=== PATIENT | female | born 1995 | race Caucasian/White ===

== ENCOUNTER 2016-06-05 16:22 | Emergency (ER) | payer OTHER ==
--- NOTE | 2016-06-05 18:57 | ED ---
Abdominal Pain HPI - General Chief Complaint: Abdominal Pain Stated Complaint: Abd Pain Time Seen by Provider: 06/05/16 18:40 Source: patient, RN notes reviewed Mode of arrival: ambulatory Limitations: no limitations - History of Present Illness Initial Comments: Patient is a 21-year-old presents emergency room for evaluation of abdominal cramping. Patient states she began developing abdominal cramping this morning and was extremely nauseous. Patient states she vomited a few times. Patient states that she slept all day today. Patient states she'll having intermittent cramping in her upper abdomen that radiates to her left lower quadrant. Patient does state her last menstrual period was 05/20/16. Patient states her menstrual period only lasted about 3 days. Patient states she did take a test last month and it was negative. Patient stated that after shoveling yesterday she went back inside and she had some spotting. Patient states she hasn't bled since. Patient states she thinks she might be . Patient states she has one previous full-term . Patient denies any other history of miscarriages or ectopic pregnancies. Patient denies current nausea. Patient denies bleeding today. Patient denies pain or burning during urination, trouble urinating or blood in urine. Patient denies chest pain, shortness of breath, headache, dizziness, constipation, diarrhea. - Related Data Home Medications Medication Instructions Recorded Confirmed Levothyroxine Sodium [Synthroid] 25 mcg PO DAILY 09/18/14 06/05/16 Dextroamphetamine/Amphetamine 10 mg PO BID 03/15/15 06/05/16 [Adderall] Albuterol Inhaler [Ventolin Hfa 2 puff INHALATION RT-Q4H PRN 04/22/16 06/05/16 Inhaler] Albuterol Nebulized [Ventolin 2.5 mg INHALATION RT-Q6H PRN 04/22/16 06/05/16 Nebulized] Asenapine [Saphris] 5 mg SUBLINGUAL HS 04/22/16 06/05/16 busPIRone HCL [Buspar] 7.5 mg PO BID 04/22/16 06/05/16 traZODone HCL 50 mg PO HS 04/22/16 06/05/16 Previous Rx's Medication Instructions Recorded Ibuprofen [Motrin] 800 mg PO Q8HR PRN #21 tab 04/22/16 Ciprofloxacin HCl [Cipro] 500 mg PO Q12HR 7 Days 06/05/16 Allergies Allergy/AdvReac Type Severity Reaction Status Date / Time blueberry Allergy Rash/Hives Verified 06/05/16 19:12 Jama Allergy Rash/Hives Verified 06/05/16 19:12 diphenhydramine HCl Allergy Swelling Verified 06/05/16 19:12 [From Benadryl] fluoxetine [From Prozac] Allergy Unknown Verified 06/05/16 19:12 iodine Allergy Rash/Hives Verified 06/05/16 19:12 peas Allergy Rash/Hives Verified 06/05/16 19:12 red dye Allergy Rash/Hives Verified 06/05/16 19:12 duloxetine HCl AdvReac Hallucinati Verified 06/05/16 19:12 [From Cymbalta] ons topiramate [From Topamax] AdvReac Hallucinati Verified 06/05/16 19:12 ons Review of Systems ROS Statement: Those systems with pertinent positive or pertinent negative responses have been documented in the HPI. ROS Other: All systems not noted in ROS Statement are negative. Past Medical History Past Medical History: Seizure Disorder Additional Past Medical History / Comment(s): BACK PAIN History of Any Multi-Drug Resistant Organisms: MRSA Date of last positivie culture/infection: summer 2012 MDRO Source:: axillae Past Surgical History: Cholecystectomy Past Psychological History: Anxiety, Depression Smoking Status: Current every day smoker Past Alcohol Use History: None Reported Past Drug Use History: None Reported General Exam - General Exam Comments Initial Comments: Laying in exam room in no acute distress. Limitations: no limitations General appearance: alert, in no apparent distress Head exam: Present: atraumatic, normocephalic, normal inspection Eye exam: Present: normal appearance ENT exam: Present: normal exam Neck exam: Present: normal inspection Respiratory exam: Present: normal lung sounds bilaterally. Absent: respiratory distress Cardiovascular Exam: Present: regular rate, normal rhythm, normal heart sounds GI/Abdominal exam: Present: soft, tenderness (LLQ), normal bowel sounds. Absent : distended, guarding, rebound, rigid External exam: Present: normal external exam Speculum exam: Present: normal speculum exam, vaginal discharge By manual exam: Present: adnexal tenderness (left) Extremities exam: Present: normal inspection Back exam: Present: normal inspection Neurological exam: Present: alert, oriented X3, CN II-XII intact, normal gait Psychiatric exam: Present: normal affect, normal mood Skin exam: Present: warm, dry, intact, normal color. Absent: rash Course Vital Signs 06/05/16 16:34 Temperature 98.5 F Pulse Rate 100 Respiratory 20 Rate Blood Pressure 148/80 O2 Sat by Pulse 98 Oximetry Medical Decision Making - Medical Decision Making patient is a 21-year-old female presents emergency room for evaluation of lower abdominal cramping. Urinalysis suspicious for urinary tract infection. Patient does state that she is currently being treated for urinary tract infection. Patient states she has been placed on Bactrim for the past week. Will switch patient's antibiotics from Bactrim to Cipro and culture the urine. Urine negative. Ultrasound was done and significant for a left ovarian cyst. Advised patient to follow-up with [facility] for further evaluation. Patient states she understands everything that was discussed with her. Return parameters discussed. Case discussed with Dr. Bell. - Lab Data Lab Results 06/05/16 06/05/16 06/05/16 Range/Units 19:00 19:00 19:00 Urine Color Yellow Urine Appearance Cloudy H (Clear) Urine pH 7.5 (5.0-8.0) Ur Specific [place] 1.018 (1.001-1.035) Urine Protein 1+ H (Negative) Urine Glucose (UA) Negative (Negative) Urine Ketones Negative (Negative) Urine Blood Small H (Negative) Urine Nitrate Negative (Negative) Urine Bilirubin Negative (Negative) Urine Urobilinogen 3.0 (<2.0) mg/dL Ur Leukocyte Esterase Large H (Negative) Urine RBC 23 H (0-5) /hpf Urine WBC >182 H (0-5) /hpf Ur Squamous Epith Cells 16 H (0-4) /hpf Urine Bacteria Moderate H (None) /hpf Urine HCG, Qual Not Detected (Not Detectd) Trichomonas Ag (Rapid) Negative (Negative) - Radiology Data Radiology results: report reviewed, image reviewed Disposition Clinical Impression: Ovarian cyst, Urinary tract infection Disposition: HOME SELF-CARE Condition: Good Instructions: Urinary Tract Infection in Women (ED), Ovarian Cyst (ED) Additional Instructions: Take Tylenol or Motrin as needed for pain. Discontinue current antibiotics. Begin taking Cipro as directed. Please follow up with primary care provider and [facility] for reevaluation. If any new symptom arises, symptoms worsen or fever develops, return to ER as soon as possible. Prescriptions: Ciprofloxacin HCl [Cipro] 500 mg PO Q12HR 7 Days Referrals: Abhinav Valdivia DO [Primary Care Provider] - 1-2 days Time of Disposition: 20:44
[2016-06-05 19:22] LABS: Appearance,Urine Cloudy (Clear); Bacteria,Urine Moderate /hpf; Bilirubin,Urine Negative (Negative); Glucose,Urine (UA) Negative (Negative); Ketones,Urine Negative (Negative); Leukocyte Esterase,Urine Large (Negative); Nitrite,Urine Negative (Negative); PH, Urine 7.5 (5.0-8.0); Particle Count 8593; Protein,Urine 1+ (Negative); RBC,Urine 23 /hpf (0-5); Specific Gravity,Urine 1.018 (1.001-1.035); Squamous Epithelial Cell,Urine 16 /hpf (0-4); UA Billing (MACRO vs. MICRO) MICRO; WBC,Urine >182 /hpf (0-5)
--- NOTE | 2016-06-05 20:28 | US ---
EXAMINATION TYPE: US transvaginal DATE OF EXAM: 06/05/2016 7:57 PM COMPARISON: NONE CLINICAL HISTORY: Pain, performed through ER. TECHNIQUE: Transvaginal (TV) Date of LMP: 05/20/2016, EXAM MEASUREMENTS: Uterus: 6.5 x 4.3 x 3.6 cm Endometrial Stripe: 0.8 cm Right Ovary: 3.1 x 2.0 x 2.7 cm Left Ovary: 3.5 x 1.2 x 2.2 cm TECHNOLOGIST IMPRESSION: 1. Uterus: Retroverted wnl 2. Endometrium: wnl 3. Right Ovary: follicles, complex cyst= 1.9 x 1.4 x 1.8 cm 4. Left Ovary: follicles, solid focus = 1.1 x 0.9 x 1.0 cm Spectral, color and waveform doppler imaging shows good arterial and venous flow within the ovaries ; there is no evidence for ovarian torsion. 5. Bilateral Adnexa: wnl 6. Posterior cul-de-sac: moderate amount of free fluid There may be involuting follicle involving the right ovary. Free fluid is present adjacent to the lef t ovary, isoechoic focus within the left ovary is indeterminate IMPRESSION: Free fluid, there may be involution of an ovarian follicle. Ovarian torsion cannot eviden t. Indeterminate isoechoic focus left ovary could be related to hemorrhagic cyst, follow-up could be performed to assess for resolution.
[2016-06-05] MEDS ORDERED: ACET/COD 300 MG/30 MG STARTER PACK 6 TAB BTL PO STA (20:47)
[2016-06-05 21:06] VITALS: BP 132/72; PULSE 92; RESP 18; TEMP 97.6
== END 2016-06-05 21:06 | disposition home or self-care (01) ==
LOC: EC 16:22
DX: N39.0 Urinary tract infection, site not specified (principal); N83.201 Unspecified ovarian cyst, right side; F32.9 Major depressive disorder, single episode, unspecified; F41.9 Anxiety disorder, unspecified; Z79.899 Other long term (current) drug therapy; Z88.8 Allergy status to other drugs, medicaments and biological substances; F17.200 Nicotine dependence, unspecified, uncomplicated
CPT/HCPCS: 76830; 81001; 81025; 87070; 87205; 87491; 87591; 87808; 93975; 99284

== ENCOUNTER 2016-07-01 13:52 | Emergency (ER) | payer OTHER ==
[2016-07-01] MEDS ORDERED: SODIUM CHLORIDE 0.9% 1,000 ML IV STA (15:17)
--- NOTE | 2016-07-01 15:19 | ED ---
Abdominal Pain HPI - General Chief Complaint: Abdominal Pain Stated Complaint: abdominal pain/early Time Seen by Provider: 07/01/16 15:12 Source: patient, RN notes reviewed Mode of arrival: ambulatory Limitations: no limitations - History of Present Illness Initial Comments: 21-year-old female presents emergency Department chief complaint of left-sided abdominal pain. Patient currently is . Patient states she has a history of states she is on which side. Patient states she started left-sided abdominal pain. Patient states she has had a lot of nausea vomiting this as well. Patient is . Patient states that she has had a fever chills. Patient states she was concerned with the belly pain and so she thought that she should be seen. Patient states there hasn't been any vaginal drainage or discharge. Patient states that she is not currently having any other symptoms at this time. Patient denies any recent fever, chills, shortness of breath, chest pain, back pain, numbness or tingling, dysuria or hematuria, constipation or diarrhea, headaches or visual changes, or any other current symptoms. - Related Data Home Medications Medication Instructions Recorded Confirmed No Known Home Medications [No 07/01/16 07/01/16 Known Home Medications] Allergies Allergy/AdvReac Type Severity Reaction Status Date / Time blueberry Allergy Rash/Hives Verified 07/01/16 15:29 Jama Allergy Rash/Hives Verified 07/01/16 15:29 diphenhydramine HCl Allergy Swelling Verified 07/01/16 15:29 [From Benadryl] fluoxetine [From Prozac] Allergy Unknown Verified 07/01/16 15:29 iodine Allergy Rash/Hives Verified 07/01/16 15:29 peas Allergy Rash/Hives Verified 07/01/16 15:29 red dye Allergy Rash/Hives Verified 07/01/16 15:29 duloxetine HCl AdvReac Hallucinati Verified 07/01/16 15:29 [From Cymbalta] ons topiramate [From Topamax] AdvReac Hallucinati Verified 07/01/16 15:29 ons Review of Systems ROS Statement: Those systems with pertinent positive or pertinent negative responses have been documented in the HPI. ROS Other: All systems not noted in ROS Statement are negative. Past Medical History Past Medical History: Seizure Disorder Additional Past Medical History / Comment(s): BACK PAIN History of Any Multi-Drug Resistant Organisms: MRSA Date of last positivie culture/infection: summer 2012 MDRO Source:: axillae Past Surgical History: Cholecystectomy Past Psychological History: Anxiety, Depression Smoking Status: Current every day smoker Past Alcohol Use History: None Reported Past Drug Use History: None Reported General Exam Limitations: no limitations General appearance: alert, in no apparent distress Eye exam: Present: normal appearance, PERRL, EOMI. Absent: scleral icterus, conjunctival injection, periorbital swelling ENT exam: Present: normal exam, mucous membranes moist Neck exam: Present: normal inspection. Absent: tenderness, meningismus, lymphadenopathy Respiratory exam: Present: normal lung sounds bilaterally. Absent: respiratory distress, wheezes, rales, rhonchi, stridor Cardiovascular Exam: Present: regular rate, normal rhythm, normal heart sounds. Absent: systolic murmur, diastolic murmur, rubs, gallop, clicks GI/Abdominal exam: Present: soft, normal bowel sounds. Absent: distended, tenderness, guarding, rebound, rigid Neurological exam: Present: alert, oriented X3, CN II-XII intact. Absent: motor sensory deficit Psychiatric exam: Present: normal affect, normal mood Skin exam: Present: warm, dry, intact, normal color. Absent: rash Course Vital Signs 07/01/16 07/01/16 13:58 17:23 Temperature 98 F Pulse Rate 84 75 Respiratory 20 16 Rate Blood Pressure 121/57 125/58 O2 Sat by Pulse 97 100 Oximetry Medical Decision Making - Medical Decision Making 21-year-old female presents emergency Department chief complaint of right-sided lower abdominal pain in . Patient also does have nausea and vomiting this . This time I work is reviewed as well as ultrasound. Patient appears to have a there does appear to be a right small cyst. At this time we did discuss follow-up with [facility]. Patient was offered a pelvic exam STD testing she states she'll follow-up with [facility] for that she does not have this done. That she is nauseous she is or things occasionally like to go home. This time we will discharge the patient. Follow-up return parameters were discussed. - Lab Data Result diagrams: 07/01/16 15:39 07/01/16 15:39 Lab Results 07/01/16 07/01/16 07/01/16 Range/Units 15:39 15:39 15:39 WBC 13.5 H (3.8-10.6) k/uL RBC 4.72 (3.80-5.40) m/uL Hgb 13.6 (11.4-16.0) gm/dL Hct 41.2 (34.0-46.0) % MCV 87.3 (80.0-100.0) fL MCH 28.8 (25.0-35.0) pg MCHC 33.0 (31.0-37.0) g/dL RDW 12.3 (11.5-15.5) % Plt Count 400 (150-450) k/uL Neutrophils % 65 % Lymphocytes % 25 % Monocytes % 5 % Eosinophils % 3 % Basophils % 0 % Neutrophils # 8.8 H (1.3-7.7) k/uL Lymphocytes # 3.3 (1.0-4.8) k/uL Monocytes # 0.6 (0-1.0) k/uL Eosinophils # 0.4 (0-0.7) k/uL Basophils # 0.1 (0-0.2) k/uL Sodium 140 (137-145) mmol/L Potassium 5.5 H (3.5-5.1) mmol/L Chloride 103 (98-107) mmol/L Carbon Dioxide 23 (22-30) mmol/L Anion Gap 14 mmol/L BUN 8 (7-17) mg/dL Creatinine 0.69 (0.52-1.04) mg/dL Est GFR (MDRD) Af Amer >60 (>60 ml/min/1.73 sqM) Est GFR (MDRD) Non-Af >60 (>60 ml/min/1.73 sqM) Glucose 86 (74-99) mg/dL Calcium 9.6 (8.4-10.2) mg/dL Total Bilirubin 1.2 (0.2-1.3) mg/dL AST 42 H (14-36) U/L ALT 36 (9-52) U/L Alkaline Phosphatase 98 (38-126) U/L Total Protein 8.0 (6.3-8.2) g/dL Albumin 4.6 (3.5-5.0) g/dL HCG, Quant 53353.7 mIU/mL Urine Color Urine Appearance (Clear) Urine pH (5.0-8.0) Ur Specific [place] (1.001-1.035) Urine Protein (Negative) Urine Glucose (UA) (Negative) Urine Ketones (Negative) Urine Blood (Negative) Urine Nitrate (Negative) Urine Bilirubin (Negative) Urine Urobilinogen (<2.0) mg/dL Ur Leukocyte Esterase (Negative) Urine RBC (0-5) /hpf Urine WBC (0-5) /hpf Urine WBC Clumps (None) /hpf Ur Squamous Epith Cells (0-4) /hpf Amorphous Sediment (None) /hpf Urine Mucus (None) /hpf Urine HCG, Qual (Not Detectd) Blood Type A Positive Blood Type Recheck No 07/01/16 07/01/16 Range/Units 15:39 15:39 WBC (3.8-10.6) k/uL RBC (3.80-5.40) m/uL Hgb (11.4-16.0) gm/dL Hct (34.0-46.0) % MCV (80.0-100.0) fL MCH (25.0-35.0) pg MCHC (31.0-37.0) g/dL RDW (11.5-15.5) % Plt Count (150-450) k/uL Neutrophils % % Lymphocytes % % Monocytes % % Eosinophils % % Basophils % % Neutrophils # (1.3-7.7) k/uL Lymphocytes # (1.0-4.8) k/uL Monocytes # (0-1.0) k/uL Eosinophils # (0-0.7) k/uL Basophils # (0-0.2) k/uL Sodium (137-145) mmol/L Potassium (3.5-5.1) mmol/L Chloride (98-107) mmol/L Carbon Dioxide (22-30) mmol/L Anion Gap mmol/L BUN (7-17) mg/dL Creatinine (0.52-1.04) mg/dL Est GFR (MDRD) Af Amer (>60 ml/min/1.73 sqM) Est GFR (MDRD) Non-Af (>60 ml/min/1.73 sqM) Glucose (74-99) mg/dL Calcium (8.4-10.2) mg/dL Total Bilirubin (0.2-1.3) mg/dL AST (14-36) U/L ALT (9-52) U/L Alkaline Phosphatase (38-126) U/L Total Protein (6.3-8.2) g/dL Albumin (3.5-5.0) g/dL HCG, Quant mIU/mL Urine Color Kya Urine Appearance Clear (Clear) Urine pH 6.0 (5.0-8.0) Ur Specific [place] 1.020 (1.001-1.035) Urine Protein Negative (Negative) Urine Glucose (UA) Negative (Negative) Urine Ketones Negative (Negative) Urine Blood Negative (Negative) Urine Nitrate Negative (Negative) Urine Bilirubin Negative (Negative) Urine Urobilinogen 2.0 (<2.0) mg/dL Ur Leukocyte Esterase Large H (Negative) Urine RBC 2 (0-5) /hpf Urine WBC 23 H (0-5) /hpf Urine WBC Clumps Rare H (None) /hpf Ur Squamous Epith Cells 7 H (0-4) /hpf Amorphous Sediment Rare H (None) /hpf Urine Mucus Rare H (None) /hpf Urine HCG, Qual Detected (Not Detectd) Blood Type Blood Type Recheck Disposition Clinical Impression: Abdominal pain during , Nausea and vomiting Disposition: HOME SELF-CARE Condition: Stable Instructions: Abdominal Pain in (ED) Additional Instructions: Please use medication as discussed. Please follow up with family doctor if symptoms have not improved over the next two days. Please return to the emergency room if your symptoms increase or worsen or for any other concerns. Referrals: Abhinav Valdivia DO [Primary Care Provider] - 1-2 days Time of Disposition: 17:42
[2016-07-01 15:51] LABS: Basophils # (A) 0.1 k/uL (0-0.2); Basophils % (A) 0 %; CH 29.5; CHCM 33.9; Eosinophils # (A) 0.4 k/uL (0-0.7); Eosinophils % (A) 3 %; HCT 41.2 % (34.0-46.0); HDW 2.12; HGB 13.6 gm/dL (11.4-16.0); Luc # (Auto) 0.27; Luc % (Auto) 2; Lymphocytes # (A) 3.3 k/uL (1.0-4.8); Lymphocytes % (A) 25 %; MCH 28.8 pg (25.0-35.0); MCV 87.3 fL (80.0-100.0); Mean Platelet Volume 7.7; Monocytes # (A) 0.6 k/uL (0-1.0); Monocytes % (A) 5 %; Neutrophils # (A) 8.8 k/uL (1.3-7.7); Neutrophils % (A) 65 %; RBC 4.72 m/uL (3.80-5.40); RDW 12.3 % (11.5-15.5); WBC 13.5 k/uL (3.8-10.6); WBC (Perox) 13.84
[2016-07-01 16:00] LABS: ALT 36 U/L (9-52); AST 42 U/L (14-36); Alkaline Phosphatase 98 U/L (38-126); Anion Gap 14 mmol/L; Blood Urea Nitrogen 8 mg/dL (7-17); Calcium 9.6 mg/dL (8.4-10.2); Carbon Dioxide 23 mmol/L (22-30); Chloride 103 mmol/L (98-107); Glucose 86 mg/dL (74-99); Non-African American GFR(MDRD) >60 (>60 ml/min/1.73 sqM); Potassium 5.5 mmol/L (3.5-5.1); Sodium 140 mmol/L (137-145); Total Bilirubin 1.2 mg/dL (0.2-1.3)
[2016-07-01 16:10] LABS: Amorphous Sediment,Urine Rare /hpf; Appearance,Urine Clear (Clear); Bilirubin,Urine Negative (Negative); Glucose,Urine (UA) Negative (Negative); Ketones,Urine Negative (Negative); Leukocyte Esterase,Urine Large (Negative); Mucus,Urine Rare /hpf; Nitrite,Urine Negative (Negative); Particle Count 4670; Protein,Urine Negative (Negative); RBC,Urine 2 /hpf (0-5); Squamous Epithelial Cell,Urine 7 /hpf (0-4); UA Billing (MACRO vs. MICRO) MICRO; WBC,Urine 23 /hpf (0-5)
[2016-07-01 16:49] LABS: HCG,Quantitative Serum 58595.7 mIU/mL
--- NOTE | 2016-07-01 17:33 | US ---
EXAMINATION TYPE: US OB <=14 wks transvag DATE OF EXAM: 07/01/2016 5:04 PM COMPARISON: on PACS CLINICAL HISTORY: Pain. hx of ovarian cyst EXAM PERFORMED: Transvaginal (TV) and Transabdominal (TA) EXAM MEASUREMENTS: GESTATIONAL AGE / DATING Dates by LMP: (6 weeks/0 days) EDC: 02/24/2017 Dates by Current Scan: (5 weeks/6 days) EDC: 02/25/2017 MATERNAL ANATOMY Uterus: 7.8 x 4.9 x 5.4 cm Right Ovary: 3.4 x 1.8 x 2.2 cm Left Ovary: 2.6 x 1.3 x 1.5 cm Post CDS / Adnexa: free fluid Presence of free fluid: posterior cul de sac Presence of corpus luteal cyst: right ovary = 1.5 x 1.4 x 1.3 cm GESTATION / SURVEY CRL: 0.3 cm (5 weeks/6 days) MSD: not measured Yolk Sac (normal less than 6mm): 2.1 mm Heart Rate: 118 bpm Rhythm: Normal IUP: Viable IUP Date of LMP: 05/20/2016 Beta HcG (if available): not available TECHNOLOGIST IMPRESSION: Single live IUP measuring 5 weeks 6 days IMPRESSION: The ultrasound gestational age is 5 weeks 6 days. I see no complicating process.
[2016-07-01 17:57] VITALS: BP 109/80; PULSE 71; RESP 20; TEMP 97.9
== END 2016-07-01 18:00 | disposition home or self-care (01) ==
LOC: EC 13:52
DX: O21.9 Vomiting of pregnancy, unspecified (principal); O99.89 Other specified diseases and conditions complicating pregnancy, childbirth and the puerperium; O99.331 Smoking (tobacco) complicating pregnancy, first trimester; R10.9 Unspecified abdominal pain; F17.200 Nicotine dependence, unspecified, uncomplicated; Z3A.01 Less than 8 weeks gestation of pregnancy; Z91.018 Allergy to other foods; Z91.041 Radiographic dye allergy status; Z88.8 Allergy status to other drugs, medicaments and biological substances; Z91.09 Other allergy status, other than to drugs and biological substances; Z90.49 Acquired absence of other specified parts of digestive tract
CPT/HCPCS: 36415; 76801; 76817; 80053; 81001; 81025; 84702; 85025; 86900; 86901; 87077; 87086; 87186; 96360; 96361; 99284

== ENCOUNTER 2016-07-04 23:37 | Emergency (ER) | payer OTHER ==
[2016-07-05] MEDS ORDERED: SODIUM CHLORIDE 0.9% 1,000 ML IV ONE (00:52)
[2016-07-05] MEDS ORDERED: ACETAMINOPHEN IV (For NPO) 1,000 MG in EMPTY BAG 1 BAG IVPB STA (00:53)
[2016-07-05] MEDS ORDERED: METOCLOPRAMIDE 5 MG/ML 2 ML VIAL IVP STA (00:53)
--- NOTE | 2016-07-05 00:56 | ED ---
Nausea/Vomiting/Diarrhea HPI - General Chief complaint: Nausea/Vomiting/Diarrhea Stated complaint: Fever/Vomiting/6Wks Preg Time Seen by Provider: 07/05/16 00:07 Source: patient, family, RN notes reviewed Mode of arrival: wheelchair Limitations: no limitations - History of Present Illness Initial comments: Patient is a 21-year-old female who presents to the emergency room for evaluation of nausea and vomiting. patient states she is here 2 days ago for the same symptoms. patient states been having on and off fevers and chills. patient states she took tylenol around 5:30 pm with no relief of symptoms. patient states she hasn't been able to eat 3 days. patient states she is about 6 weeks . patient denies pain or burning during urination, trouble urinating or blood in urine. patient denies any abnormal vaginal discharge. patient denies history of stds. patient does state that she was diagnosed with urinary tract infection and was supposed to diamond picker antibiotics today. Patient also states she began developing throat pain yesterday. Patient states she has sinus congestion and bilateral ear pressure/pain. Patient denies receiving her influenza vaccine this year. - Related Data Home Medications Medication Instructions Recorded Confirmed Acetaminophen Tab [Tylenol] 500 mg PO DIRECTED PRN 07/04/16 07/04/16 Previous Rx's Medication Instructions Recorded Cephalexin [Keflex] 500 mg PO Q6HR 5 Days 07/05/16 Allergies Allergy/AdvReac Type Severity Reaction Status Date / Time blueberry Allergy Rash/Hives Verified 07/04/16 23:56 Jama Allergy Rash/Hives Verified 07/04/16 23:56 diphenhydramine HCl Allergy Swelling Verified 07/04/16 23:56 [From Benadryl] fluoxetine [From Prozac] Allergy Unknown Verified 07/04/16 23:56 iodine Allergy Rash/Hives Verified 07/04/16 23:56 peas Allergy Rash/Hives Verified 07/04/16 23:56 red dye Allergy Rash/Hives Verified 07/04/16 23:56 duloxetine HCl AdvReac Hallucinati Verified 07/04/16 23:56 [From Cymbalta] ons topiramate [From Topamax] AdvReac Hallucinati Verified 07/04/16 23:56 ons Review of Systems ROS Statement: Those systems with pertinent positive or pertinent negative responses have been documented in the HPI. ROS Other: All systems not noted in ROS Statement are negative. Past Medical History Past Medical History: Seizure Disorder Additional Past Medical History / Comment(s): BACK PAIN History of Any Multi-Drug Resistant Organisms: MRSA Date of last positivie culture/infection: summer 2012 MDRO Source:: axillae Past Surgical History: Cholecystectomy Past Psychological History: Anxiety, Depression Smoking Status: Current every day smoker Past Alcohol Use History: None Reported Past Drug Use History: None Reported General Exam - General Exam Comments Initial Comments: Sitting in exam room in no acute distress. Limitations: no limitations General appearance: alert, in no apparent distress Head exam: Present: atraumatic, normocephalic, normal inspection Eye exam: Present: normal appearance ENT exam: Present: normal exam Neck exam: Present: normal inspection Respiratory exam: Present: normal lung sounds bilaterally. Absent: respiratory distress Cardiovascular Exam: Present: normal rhythm, tachycardia, normal heart sounds GI/Abdominal exam: Present: soft, normal bowel sounds. Absent: distended, tenderness, guarding, rebound, rigid Extremities exam: Present: normal inspection Back exam: Present: normal inspection Neurological exam: Present: alert, oriented X3, CN II-XII intact, normal gait Psychiatric exam: Present: normal affect, normal mood Skin exam: Present: warm, dry, intact, normal color. Absent: rash Course Vital Signs 07/04/16 07/05/16 07/05/16 23:54 01:46 03:18 Temperature 99.6 F 99.8 F H 98.1 F Pulse Rate 111 H 78 Respiratory 20 16 Rate Blood Pressure 124/58 110/68 O2 Sat by Pulse 98 98 Oximetry Medical Decision Making - Medical Decision Making Patient's 21-year-old female presents to the emergency room for evaluation of nausea and vomiting. Patient is about 6 weeks . Patient denies any abdominal pain today. Patient states she is feeling better after fluids and medications given. Will send patient home with [facility] for urinary tract infection. Advised patient to follow-up with her WEED INSPECTOR. Patient states she understands everything that was discussed with her. Return parameters discussed. Case discussed with Dr. He. - Lab Data Result diagrams: 07/05/16 01:23 07/05/16 01:23 Lab Results 07/05/16 07/05/16 07/05/16 Range/Units 01:23 01:23 01:23 WBC 21.9 H (3.8-10.6) k/uL RBC 4.29 (3.80-5.40) m/uL Hgb 12.5 (11.4-16.0) gm/dL Hct 36.9 (34.0-46.0) % MCV 86.1 (80.0-100.0) fL MCH 29.1 (25.0-35.0) pg MCHC 33.8 (31.0-37.0) g/dL RDW 12.6 (11.5-15.5) % Plt Count 338 (150-450) k/uL Neutrophils % 85 % Lymphocytes % 7 % Monocytes % 5 % Eosinophils % 1 % Basophils % 0 % Neutrophils # 18.6 H (1.3-7.7) k/uL Lymphocytes # 1.6 (1.0-4.8) k/uL Monocytes # 1.2 H (0-1.0) k/uL Eosinophils # 0.2 (0-0.7) k/uL Basophils # 0.1 (0-0.2) k/uL Sodium 137 (137-145) mmol/L Potassium 4.0 (3.5-5.1) mmol/L Chloride 102 (98-107) mmol/L Carbon Dioxide 23 (22-30) mmol/L Anion Gap 12 mmol/L BUN 4 L (7-17) mg/dL Creatinine 0.70 (0.52-1.04) mg/dL Est GFR (MDRD) Af Amer >60 (>60 ml/min/1.73 sqM) Est GFR (MDRD) Non-Af >60 (>60 ml/min/1.73 sqM) Glucose 112 H (74-99) mg/dL Calcium 9.2 (8.4-10.2) mg/dL Total Bilirubin 0.5 (0.2-1.3) mg/dL AST 16 (14-36) U/L ALT 39 (9-52) U/L Alkaline Phosphatase 109 (38-126) U/L Total Protein 7.1 (6.3-8.2) g/dL Albumin 4.0 (3.5-5.0) g/dL Urine Color Urine Appearance (Clear) Urine pH (5.0-8.0) Ur Specific Hurley (1.001-1.035) Urine Protein (Negative) Urine Glucose (UA) (Negative) Urine Ketones (Negative) Urine Blood (Negative) Urine Nitrate (Negative) Urine Bilirubin (Negative) Urine Urobilinogen (<2.0) mg/dL Ur Leukocyte Esterase (Negative) Urine RBC (0-5) /hpf Urine WBC (0-5) /hpf Ur Squamous Epith Cells (0-4) /hpf Urine Bacteria (None) /hpf Group A Strep Rapid Negative (Negative) 07/05/16 Range/Units 01:23 WBC (3.8-10.6) k/uL RBC (3.80-5.40) m/uL Hgb (11.4-16.0) gm/dL Hct (34.0-46.0) % MCV (80.0-100.0) fL MCH (25.0-35.0) pg MCHC (31.0-37.0) g/dL RDW (11.5-15.5) % Plt Count (150-450) k/uL Neutrophils % % Lymphocytes % % Monocytes % % Eosinophils % % Basophils % % Neutrophils # (1.3-7.7) k/uL Lymphocytes # (1.0-4.8) k/uL Monocytes # (0-1.0) k/uL Eosinophils # (0-0.7) k/uL Basophils # (0-0.2) k/uL Sodium (137-145) mmol/L Potassium (3.5-5.1) mmol/L Chloride (98-107) mmol/L Carbon Dioxide (22-30) mmol/L Anion Gap mmol/L BUN (7-17) mg/dL Creatinine (0.52-1.04) mg/dL Est GFR (MDRD) Af Amer (>60 ml/min/1.73 sqM) Est GFR (MDRD) Non-Af (>60 ml/min/1.73 sqM) Glucose (74-99) mg/dL Calcium (8.4-10.2) mg/dL Total Bilirubin (0.2-1.3) mg/dL AST (14-36) U/L ALT (9-52) U/L Alkaline Phosphatase (38-126) U/L Total Protein (6.3-8.2) g/dL Albumin (3.5-5.0) g/dL Urine Color Yellow Urine Appearance Cloudy H (Clear) Urine pH 6.5 (5.0-8.0) Ur Specific Hurley 1.016 (1.001-1.035) Urine Protein Trace H (Negative) Urine Glucose (UA) Negative (Negative) Urine Ketones Negative (Negative) Urine Blood Negative (Negative) Urine Nitrate Negative (Negative) Urine Bilirubin Negative (Negative) Urine Urobilinogen 2.0 (<2.0) mg/dL Ur Leukocyte Esterase Large H (Negative) Urine RBC 4 (0-5) /hpf Urine WBC 8 H (0-5) /hpf Ur Squamous Epith Cells 6 H (0-4) /hpf Urine Bacteria Moderate H (None) /hpf Group A Strep Rapid (Negative) Disposition Clinical Impression: Hyperemesis gravidarum, Urinary tract infection Disposition: HOME SELF-CARE Condition: Good Instructions: Urinary Tract Infection in (ED), Hyperemesis Gravidarum (ED) Additional Instructions: Drink plenty of fluids. Take antibiotics as directed. Please follow-up with OB /BOOT LACE CUTTER MACHINE in 24-48 hours. If any new symptom arises or symptoms worsen, return to ER as soon as possible. Prescriptions: Cephalexin [Keflex] 500 mg PO Q6HR 5 Days Referrals: Abhinav Valdivia DO [Primary Care Provider] - 1-2 days Time of Disposition: 03:18
[2016-07-05 01:45] LABS: Basophils # (A) 0.1 k/uL (0-0.2); Basophils % (A) 0 %; CH 29.6; CHCM 34.5; Eosinophils # (A) 0.2 k/uL (0-0.7); Eosinophils % (A) 1 %; HCT 36.9 % (34.0-46.0); HDW 2.03; HGB 12.5 gm/dL (11.4-16.0); Luc # (Auto) 0.27; Luc % (Auto) 1; Lymphocytes # (A) 1.6 k/uL (1.0-4.8); Lymphocytes % (A) 7 %; MCH 29.1 pg (25.0-35.0); MCHC 33.8 g/dL (31.0-37.0); MCV 86.1 fL (80.0-100.0); Mean Platelet Volume 7.6; Monocytes # (A) 1.2 k/uL (0-1.0); Monocytes % (A) 5 %; Neutrophils # (A) 18.6 k/uL (1.3-7.7); Neutrophils % (A) 85 %; RBC 4.29 m/uL (3.80-5.40); RDW 12.6 % (11.5-15.5); WBC 21.9 k/uL (3.8-10.6); WBC (Perox) 22.38
[2016-07-05 02:03] LABS: ALT 39 U/L (9-52); AST 16 U/L (14-36); Alkaline Phosphatase 109 U/L (38-126); Anion Gap 12 mmol/L; Blood Urea Nitrogen 4 mg/dL (7-17); Calcium 9.2 mg/dL (8.4-10.2); Carbon Dioxide 23 mmol/L (22-30); Chloride 102 mmol/L (98-107); Glucose 112 mg/dL (74-99); Non-African American GFR(MDRD) >60 (>60 ml/min/1.73 sqM); Sodium 137 mmol/L (137-145); Total Bilirubin 0.5 mg/dL (0.2-1.3); Total Protein 7.1 g/dL (6.3-8.2)
[2016-07-05 03:01] LABS: Appearance,Urine Cloudy (Clear); Bacteria,Urine Moderate /hpf; Bilirubin,Urine Negative (Negative); Glucose,Urine (UA) Negative (Negative); Ketones,Urine Negative (Negative); Leukocyte Esterase,Urine Large (Negative); Nitrite,Urine Negative (Negative); PH, Urine 6.5 (5.0-8.0); Particle Count 9073; Protein,Urine Trace (Negative); RBC,Urine 4 /hpf (0-5); Specific Gravity,Urine 1.016 (1.001-1.035); Squamous Epithelial Cell,Urine 6 /hpf (0-4); UA Billing (MACRO vs. MICRO) MICRO; WBC,Urine 8 /hpf (0-5)
[2016-07-05 03:19] VITALS: BP 110/68; PULSE 78; RESP 16; TEMP 98.1
[2016-07-05] MEDS ORDERED: CEPHALEXIN 500MG STARTER PACK 4 CAP BTL PO STA (03:20)
== END 2016-07-05 03:47 | disposition home or self-care (01) ==
LOC: EC 23:37
DX: O21.0 Mild hyperemesis gravidarum (principal); O23.41 Unspecified infection of urinary tract in pregnancy, first trimester; Z3A.01 Less than 8 weeks gestation of pregnancy; F17.200 Nicotine dependence, unspecified, uncomplicated; Z91.018 Allergy to other foods; Z88.8 Allergy status to other drugs, medicaments and biological substances; Z91.048 Other nonmedicinal substance allergy status
CPT/HCPCS: 99284; 96374; 96375; 36415; 80053; 85025; 81001; 87081; 87430; 87502; J2765; J0131

== ENCOUNTER → 2016-08-22 | Outpatient (CLI) | payer OTHER ==
--- NOTE | 2016-08-22 21:29 | US ---
EXAMINATION TYPE: US OB <= 14 wk fetus DATE OF EXAM: 08/22/2016 4:22 PM COMPARISON: NONE CLINICAL HISTORY: Z34.8 Supervision of Normal . Confirm dates EXAM PERFORMED: Transabdominal (TA) EXAM MEASUREMENTS: GESTATIONAL AGE / DATING Physician Established: not established Dates by LMP: (13 weeks/3 days) EDC: 02/24/17 Dates by First Scan: (13 weeks/2 days) EDC: 02/25/17 Dates by Current Scan for: (13 weeks/6 days) EDC: 02/21/17 MATERNAL ANATOMY Uterus: 13.9 x 7.1 x 10.2cm Right Ovary: 2.9 x 1.4 x 1.5cm Left Ovary: 3.9 x 1.5 x 2.4cm Post CDS / Adnexa: appears wnl Presence of free fluid: no Presence of corpus luteal cyst: yes, hypoechoic area right ovary = 1.6 x 1.2 x 1.5cm GESTATION / SURVEY CRL: 7.7cm (13 weeks/6 days) Yolk Sac (normal less than 6mm): not seen Heart Rate: 154 bpm Rhythm: Normal IUP: Viable IUP Date of LMP: 05/20/16 Beta HcG (if available): unavailable IMPRESSION: Single viable IUP 13wks/6days with SHAILESH of 02/21/17
== END | disposition home or self-care (01) ==
LOC: RADUSWWP 15:57
PROVIDERS: ATTEND Obstetrics & Gynecology
DX: Z36 Encounter for antenatal screening of mother (principal); Z3A.13 13 weeks gestation of pregnancy
CPT/HCPCS: 76801

== ENCOUNTER 2016-09-18 20:19 | Emergency (ER) | payer OTHER ==
[2016-09-18] MEDS ORDERED: ACETAMINOPHEN TAB 325 MG TAB PO STA (22:50)
--- NOTE | 2016-09-18 22:54 | ED ---
Abdominal Pain HPI - General Chief Complaint: Abdominal Pain Stated Complaint: abdominal Pain (17 weeks preg) Time Seen by Provider: 09/18/16 22:36 Source: patient, RN notes reviewed Mode of arrival: ambulatory Limitations: no limitations - History of Present Illness Initial Comments: Patient is a 21-year-old female presents to the emergency room for evaluation of abdominal pain. Patient states she is about 17 weeks . Patient states over the past 3 days she's been having left lower quadrant and right lower quadrant pain that radiates through her entire abdomen. Patient states she has an appointment with her BLUEBERRY GROWER on Friday. Patient states she has not spoken to her BLUEBERRY GROWER about this issue yet. Patient denies nausea vomiting. Patient denies chest pain or shortness of breath. Patient denies pain or burning during urination, trouble urinating or blood in urine. Patient states the pain comes in waves. Patient denies vaginal bleeding. - Related Data Home Medications Medication Instructions Recorded Confirmed No Known Home Medications [No 09/18/16 09/18/16 Known Home Medications] Allergies Allergy/AdvReac Type Severity Reaction Status Date / Time blueberry Allergy Rash/Hives Verified 09/18/16 23:06 Jama Allergy Rash/Hives Verified 09/18/16 23:06 diphenhydramine HCl Allergy Swelling Verified 09/18/16 23:06 [From Benadryl] iodine Allergy Rash/Hives Verified 09/18/16 23:06 peas Allergy Rash/Hives Verified 09/18/16 23:06 red dye Allergy Rash/Hives Verified 09/18/16 23:06 duloxetine HCl AdvReac Hallucinati Verified 09/18/16 23:06 [From Cymbalta] ons fluoxetine [From Prozac] AdvReac Hallucinati Verified 09/18/16 23:06 ons topiramate [From Topamax] AdvReac Hallucinati Verified 09/18/16 23:06 ons Review of Systems ROS Statement: Those systems with pertinent positive or pertinent negative responses have been documented in the HPI. ROS Other: All systems not noted in ROS Statement are negative. Past Medical History Past Medical History: Seizure Disorder Additional Past Medical History / Comment(s): BACK PAIN History of Any Multi-Drug Resistant Organisms: MRSA Date of last positivie culture/infection: summer 2012 MDRO Source:: axillae Past Surgical History: Cholecystectomy Past Psychological History: Anxiety, Depression Smoking Status: Current every day smoker Past Alcohol Use History: None Reported Past Drug Use History: None Reported General Exam - General Exam Comments Initial Comments: Sitting in exam room, no acute distress. Limitations: no limitations General appearance: alert, in no apparent distress Head exam: Present: atraumatic, normocephalic, normal inspection Eye exam: Present: normal appearance ENT exam: Present: normal exam Neck exam: Present: normal inspection Respiratory exam: Present: normal lung sounds bilaterally. Absent: respiratory distress Cardiovascular Exam: Present: regular rate, normal rhythm, normal heart sounds GI/Abdominal exam: Present: soft, tenderness (RLQ/LLQ), normal bowel sounds. Absent: distended, guarding, rebound, rigid Extremities exam: Present: normal inspection Back exam: Present: normal inspection Neurological exam: Present: alert, oriented X3, CN II-XII intact, normal gait Psychiatric exam: Present: normal affect, normal mood Skin exam: Present: warm, dry, intact, normal color. Absent: rash Course Vital Signs 09/18/16 09/19/16 21:07 01:03 Temperature 98.3 F 98.2 F Pulse Rate 95 84 Respiratory 20 18 Rate Blood Pressure 122/64 118/60 O2 Sat by Pulse 99 98 Oximetry Medical Decision Making - Medical Decision Making Patient is a 21-year-old female presents emergency room for evaluation of abdominal pain during . Ultrasound shows no concerning findings. Urinalysis shows no specific findings. Patient states then better after Tylenol. Advised patient to follow-up with her BLUEBERRY GROWER. Patient states she has an appointment on Friday. Return parameters discussed. Case discussed Dr. Pedersen. - Lab Data Lab Results 09/19/16 Range/Units 00:03 Urine Color Light Yellow Urine Appearance Clear (Clear) Urine pH 5.5 (5.0-8.0) Ur Specific Hughes 1.008 (1.001-1.035) Urine Protein Negative (Negative) Urine Glucose (UA) Negative (Negative) Urine Ketones Negative (Negative) Urine Blood Small H (Negative) Urine Nitrite Negative (Negative) Urine Bilirubin Negative (Negative) Urine Urobilinogen <2.0 (<2.0) mg/dL Ur Leukocyte Esterase Small H (Negative) Urine RBC 4 (0-5) /hpf Urine WBC 4 (0-5) /hpf Ur Squamous Epith Cells 1 (0-4) /hpf Urine Mucus Rare H (None) /hpf - Radiology Data Radiology results: report reviewed, image reviewed Disposition Clinical Impression: related abdominal pain of lower quadrant, antepartum Disposition: HOME SELF-CARE Condition: Good Instructions: Abdominal Pain in (ED) Additional Instructions: Please follow-up with BLUEBERRY GROWER in 24-48 hours for reevaluation. Take Tylenol as needed for pain. If any new symptom arises or symptoms worsen, return to ER as soon as possible. Referrals: Abhinav Valdivia DO [Primary Care Provider] - 1-2 days Time of Disposition: 00:50
[2016-09-19 00:18] LABS: Appearance,Urine Clear (Clear); Bilirubin,Urine Negative (Negative); Glucose,Urine (UA) Negative (Negative); Ketones,Urine Negative (Negative); Leukocyte Esterase,Urine Small (Negative); Mucus,Urine Rare /hpf; Nitrite,Urine Negative (Negative); PH, Urine 5.5 (5.0-8.0); Particle Count 1429; Protein,Urine Negative (Negative); RBC,Urine 4 /hpf (0-5); Specific Gravity,Urine 1.008 (1.001-1.035); Squamous Epithelial Cell,Urine 1 /hpf (0-4); UA Billing (MACRO vs. MICRO) MICRO; Urobilinogen,Urine <2.0 mg/dL (<2.0); WBC,Urine 4 /hpf (0-5)
--- NOTE | 2016-09-19 00:37 | US ---
Obstetric Ultrasound, Second trimester INDICATION: 21-year-old woman presenting with pelvic pain. COMPARISON: Ultrasound 08/22/16 TECHNIQUE: Real-time sonographic evaluation of the is performed using grayscale and color flow. FINDINGS: Single live intrauterine gestation with cephalic presentation. The placenta is anterior and does not extend to the lower uterine segment. The cervix is closed and measures 3.8 cm. Amniotic fluid index is normal measuring 11.1 cm. BPD 4.01 cm 18 weeks 1 days HC 14.57 cm 17 weeks 5 days AC 12.95 cm 18 weeks 3 days FL 2.76 cm 18 weeks 3 days By this ultrasound, estimated gestational age is 18 weeks 1 day +/- 1 week 0 days with estimated delivery date of 02/18/17. Estimated weight is 237.81 g +/-35.67 g. Estimated weight percentile is 96.9%. HC/AC ratio is 1.13 (normal range for this fetus is 1.08-1.27) FHR is 153 bpm. IMPRESSION: Single-live intrauterine with EGA of 18 weeks 1 day +/- 1 week 0 days by sonographic dating. The placenta is anterior without evidence of previa. Amniotic fluid index is normal.
[2016-09-19 01:05] VITALS: BP 118/60; PULSE 84; RESP 18; TEMP 98.2
== END 2016-09-19 01:05 | disposition home or self-care (01) ==
LOC: EC 20:19
DX: O26.892 Other specified pregnancy related conditions, second trimester (principal); R10.32 Left lower quadrant pain; R10.31 Right lower quadrant pain; R10.84 Generalized abdominal pain; O99.332 Smoking (tobacco) complicating pregnancy, second trimester; F17.200 Nicotine dependence, unspecified, uncomplicated; Z88.8 Allergy status to other drugs, medicaments and biological substances; Z91.018 Allergy to other foods; Z91.09 Other allergy status, other than to drugs and biological substances; Z90.49 Acquired absence of other specified parts of digestive tract; Z3A.18 18 weeks gestation of pregnancy
CPT/HCPCS: 76805; 81001; 99284

== ENCOUNTER 2016-10-02 09:36 | Emergency (ER) | payer OTHER ==
[2016-10-02 09:49] VITALS: RESP 18
--- NOTE | 2016-10-02 10:22 | ED ---
ENT HPI - General Chief complaint: ENT Stated complaint: throat pain Time Seen by Provider: 10/02/16 10:11 Source: patient, RN notes reviewed Mode of arrival: ambulatory Limitations: no limitations - History of Present Illness Initial comments: 21-year-old female presents emergency Department chief complaint sore throat. Patient states started sore throat yesterday but not she has congestion, runny nose cough today. Patient states that she is so she was concerned. Patient states she just feels rundown and tired. Patient states that she chronically has nausea vomiting with her not worse than usual. Patient denies abdominal pain including has no bleeding or vaginal discharge. Patient has a follow-up appointment with her INTERACTIVE GRAPHIC DESIGNER. Patient denies any over- the-counter medication use. - Related Data Home Medications Medication Instructions Recorded Confirmed Acetaminophen Tab [Tylenol Tab] 325 mg PO Q4H PRN 10/02/16 10/02/16 Levothyroxine Sodium [Synthroid] 25 mcg PO DAILY 10/02/16 10/02/16 Pnv with Ca,No.72/Iron/FA 1 tab PO DAILY 10/02/16 10/02/16 [ Plus Tablet] Allergies Allergy/AdvReac Type Severity Reaction Status Date / Time blueberry Allergy Rash/Hives Verified 10/02/16 10:31 Jama Allergy Rash/Hives Verified 10/02/16 10:31 diphenhydramine HCl Allergy Swelling Verified 10/02/16 10:31 [From Benadryl] iodine Allergy Rash/Hives Verified 10/02/16 10:31 peas Allergy Rash/Hives Verified 10/02/16 10:31 red dye Allergy Rash/Hives Verified 10/02/16 10:31 duloxetine HCl AdvReac Hallucinati Verified 10/02/16 10:31 [From Cymbalta] ons fluoxetine [From Prozac] AdvReac Hallucinati Verified 10/02/16 10:31 ons topiramate [From Topamax] AdvReac Hallucinati Verified 10/02/16 10:31 ons Review of Systems ROS Statement: Those systems with pertinent positive or pertinent negative responses have been documented in the HPI. ROS Other: All systems not noted in ROS Statement are negative. Past Medical History Past Medical History: Seizure Disorder Additional Past Medical History / Comment(s): BACK PAIN History of Any Multi-Drug Resistant Organisms: MRSA Date of last positivie culture/infection: summer 2012 MDRO Source:: axillae Past Surgical History: Cholecystectomy Past Psychological History: Anxiety, Depression Smoking Status: Former smoker Past Alcohol Use History: None Reported Past Drug Use History: None Reported General Exam Limitations: no limitations General appearance: alert, in no apparent distress Head exam: Present: atraumatic, normocephalic, normal inspection Eye exam: Present: normal appearance, PERRL, EOMI. Absent: scleral icterus, conjunctival injection, periorbital swelling ENT exam: Present: mucous membranes moist, TM's normal bilaterally, normal external ear exam. Absent: normal oropharynx (postnasal drainage, no erythema) Neck exam: Present: normal inspection, full ROM. Absent: tenderness, meningismus, lymphadenopathy Respiratory exam: Present: normal lung sounds bilaterally. Absent: respiratory distress, wheezes, rales, rhonchi, stridor Cardiovascular Exam: Present: regular rate, normal rhythm, normal heart sounds. Absent: systolic murmur, diastolic murmur, rubs, gallop, clicks GI/Abdominal exam: Present: soft, normal bowel sounds. Absent: distended, tenderness, guarding, rebound, rigid Course Vital Signs 10/02/16 10/02/16 09:46 10:39 Temperature 98.6 F 98.0 F Pulse Rate 88 85 Respiratory 18 18 Rate Blood Pressure 111/61 123/59 O2 Sat by Pulse 98 95 Oximetry Medical Decision Making - Medical Decision Making 21-year-old female presented for congestion sore throat. Patient's strep is negative. Patient will be discharged at this time. - Lab Data Lab Results 10/02/16 Range/Units 10:08 Group A Strep Rapid Negative (Negative) Disposition Clinical Impression: Upper respiratory infection Disposition: HOME SELF-CARE Condition: Stable Instructions: Upper Respiratory Infection in Children (ED) Additional Instructions: Please return to the Emergency Department if symptoms worsen or any other concerns.
[2016-10-02 11:27] VITALS: BP 118/56; PULSE 80; TEMP 97.3
== END 2016-10-02 11:26 | disposition home or self-care (01) ==
LOC: EC 09:36
DX: O99.519 Diseases of the respiratory system complicating pregnancy, unspecified trimester (principal); J06.9 Acute upper respiratory infection, unspecified; Z3A.00 Weeks of gestation of pregnancy not specified; Z87.891 Personal history of nicotine dependence; Z79.899 Other long term (current) drug therapy; Z91.018 Allergy to other foods; Z88.8 Allergy status to other drugs, medicaments and biological substances; Z91.048 Other nonmedicinal substance allergy status
CPT/HCPCS: 87081; 87430; 99283

== ENCOUNTER → 2016-10-11 | Outpatient (CLI) | payer OTHER ==
--- NOTE | 2016-10-11 14:19 | US ---
EXAMINATION TYPE: US OB anatomy transabd DATE OF EXAM: 10/11/2016 1:39 PM COMPARISON: US CLINICAL HISTORY: Z34.80 Supervision for normal pregnancyAnatomy Scan TECHNIQUE: Transabdominal (TA) GESTATIONAL AGE / DATING Physician Established: (20 weeks/4 days) EDC: 02/24/2017 Dates by LMP: Unknown Dates by First Scan: (20 weeks/3 days) EDC: 02/25/2017 Dates by Current Scan: (20 weeks/2 days) EDC: 02/26/2017 SURVEY IUP: Single PLACENTA: Anterior PREVIA: No Previa NENO: 14.7 cm CERVICAL LENGTH (transabdominal: norm > 3.0cm): 3.4 cm BIOMETRY PRESENTATION: Vertex BPD: 4.6 cm 20 weeks / 0 days HC: 17.5 cm 20 weeks / 1 days AC: 15.0 cm 20 weeks / 2 days FL: 3.3 cm 20 weeks / 3 days ESTIMATED WEIGHT IN GRAMS: 341 grams ESTIMATED WEIGHT IN LBS/OZS: 0 lbs. 12 oz. WEIGHT PERCENTAGE BASED ON ESTABLISHED DATES: 28% HC/AC: 1.17 Normal FL/AC: 22 Normal HEART RATE: 132 bpm RHYTHM: Normal ANATOMY SEEN (within normal limits): * Lateral Vent (< 1 cm) 0.7 cm * Cisterna Magna (< 1.1 cm) 0.3 cm * Nuchal Fold (< 0.6 cm) 0.3 cm * Cerebellum (varies with age) 1.8 cm Choroid Plexus (bilateral) Midline Falx Cavus Septi Pellucidi Four Chamber Heart Outflow tracts: LVOT/RVOT Stomach Situs Nose / Lips Diaphragm Kidneys (bilateral) Bladder Cord Insert Three Vessel Cord Longitudinal Spine Transverse Spine Arms (bilateral) Legs (bilateral) Single, viable IUP/ Growth parameters wnl/ Anatomy appeared wnl IMPRESSION: 1. Single intrauterine gestation estimated at 20 weeks 2 days gestation based on current ultrasound m easurements. This would have a EDC of 02/26/2017. Cardiac activity measures 132 bpm was observed durin g the study.
== END | disposition home or self-care (01) ==
LOC: RADUSWWP 12:43
PROVIDERS: ATTEND Obstetrics & Gynecology
DX: Z34.82 Encounter for supervision of other normal pregnancy, second trimester (principal); Z3A.20 20 weeks gestation of pregnancy
CPT/HCPCS: 76811

== ENCOUNTER 2016-11-09 01:31 | Outpatient (CLI) | payer OTHER ==
[2016-11-09 02:15] VITALS: BP 131/72; PULSE 86; RESP 15; TEMP 97
== END 2016-11-09 02:16 | disposition home or self-care (01) ==
LOC: FBPOP 01:31
PROVIDERS: ATTEND Obstetrics & Gynecology
DX: O99.89 Other specified diseases and conditions complicating pregnancy, childbirth and the puerperium (principal); R10.2 Pelvic and perineal pain; Z3A.24 24 weeks gestation of pregnancy
CPT/HCPCS: 99213

== ENCOUNTER 2016-12-16 23:18 | Outpatient (CLI) | payer OTHER ==
[2016-12-17 00:03] VITALS: BP 127/72; PULSE 82; RESP 15; TEMP 96.1
--- NOTE | 2017-01-18 13:18 | P.MSEPDOC ---
Presenting Problems - Arrival Data Date of Arrival on Unit: 12/16/16 Time of Arrival on Unit: 23:19 Mode of Transport: Ambulatory - Complaint OB-Reason for Admission/Chief Complaint: Pain Medical History - Information : 2 Para: 1 Term: 1 : 0 Abortions: Spontaneous or Elective: 0 Number of Living Children: 1 - Gestational Age Expected Date of Delivery: 02/24/17 Gestational Age by SHAILESH (wks/days): 34 Weeks and 5 Days Review of Systems - Review of Systems Constitutional: No problems Breast: No problems ENT: No problems Cardiovascular: No problems Respiratory: No problems Gastrointestinal: No problems Genitourinary: No problems Musculoskeletal: No problems Neurological: No problems Skin: No problems Vital Signs - Temperature Temperature: 96.1 F Temperature Source: Temporal Artery Scan - Pulse Pulse Oximetery Pulse Rate: 82 Pulse Assessment Method: Pulse Oximetry - Respirations Respiratory Rate: 15 Oxygen Delivery Method: Room Air O2 Sat by Pulse Oximetry: 99 - Blood Pressure Right Arm Blood Pressure: 127/72 Blood Pressure Mean: 90 Blood Pressure Source: Automatic Cuff Medical Screen Scoring (Pre) - Cervical Exam Dilation: Exam Deferred Effacement: Exam Deferred Membranes: Intact - Uterine Contractions Frequency: N/A Duration: N/A Intensity: N/A - Maternal Vital Signs Maternal Temperature: N/A Maternal Blood Pressure: N/A Signs of Preeclampsia: N/A Maternal Respirations: N/A - Maternal Trauma Maternal Trauma: N/A - Assessment Baseline FHR: 125 Heart Rate - NICHD Category: Category I (Normal) = 0 NST: Reactive Position: N/A Station: N/A - Total Score Total Score (Pre): 0 - Level of Risk Level of Risk: N/A Physician Notification (Pre) - Physician Notified Physician Notified Date: 12/16/16 Physician Notified Time: 23:50 Physician/Practitioner Notifed:: Dr Travis New Order Received: Yes Disposition - Disposition OB Disposition: Discharge to home, Written follow up instructions reviewed Discharge Date: 12/17/16 Discharge Time: 00:03 I agree with the RN Medical Screening Exam: Yes Risk & Benefit of care provided described in d/c instruction: Yes Diagnosis: PELVIC AND PERINEAL PAIN
== END 2016-12-17 00:04 | disposition home or self-care (01) ==
LOC: FBPOP 23:18
PROVIDERS: ATTEND Obstetrics & Gynecology
DX: O99.89 Other specified diseases and conditions complicating pregnancy, childbirth and the puerperium (principal); R10.2 Pelvic and perineal pain; Z3A.34 34 weeks gestation of pregnancy
CPT/HCPCS: 59025; G0463; 99213

== ENCOUNTER 2017-01-03 18:12 | Outpatient (CLI) | payer OTHER ==
[2017-01-03 18:36] VITALS: BP 129/63; PULSE 87; RESP 16; TEMP 97.7
--- NOTE | 2017-01-04 08:03 | P.MSEPDOC ---
Presenting Problems - Arrival Data Date of Arrival on Unit: 01/03/17 Time of Arrival on Unit: 18:11 Mode of Transport: Wheelchair - Complaint OB-Reason for Admission/Chief Complaint: Rule Out PROM Medical History - Information : 2 Para: 1 Term: 1 : 0 Abortions: Spontaneous or Elective: 0 Number of Living Children: 1 - Gestational Age Expected Date of Delivery: 02/24/17 Gestational Age by SHAILESH (wks/days): 32 Weeks and 5 Days Review of Systems - Review of Systems Constitutional: No problems Breast: No problems ENT: No problems Cardiovascular: No problems Respiratory: No problems Gastrointestinal: No problems Genitourinary: No problems Musculoskeletal: No problems Neurological: No problems Skin: No problems Vital Signs - Temperature Temperature: 97.7 F Temperature Source: Oral - Pulse Right Brachial Pulse Rate: 87 Pulse Assessment Method: Automatic Cuff - Respirations Respiratory Rate: 16 Oxygen Delivery Method: Room Air O2 Sat by Pulse Oximetry: 100 - Blood Pressure Right Arm Blood Pressure: 129/63 Blood Pressure Mean: 85 Blood Pressure Source: Automatic Cuff Medical Screen Scoring (Pre) - Cervical Exam Dilation: 1-3 cm = 1 Membranes: Intact - Uterine Contractions Frequency: N/A Duration: N/A Intensity: N/A - Maternal Vital Signs Maternal Temperature: N/A Maternal Blood Pressure: N/A Signs of Preeclampsia: N/A Maternal Respirations: N/A - Maternal Trauma Maternal Trauma: N/A - Assessment Baseline FHR: 150 Heart Rate - NICHD Category: Category I (Normal) = 0 NST: Reactive Position: N/A Station: N/A - Total Score Total Score (Pre): 1 - Level of Risk Level of Risk: Low (0-5) Physician Notification (Pre) - Physician Notified Physician Notified Date: 01/03/17 Physician Notified Time: 18:35 Physician/Practitioner Notifed:: cristian Spoke With: cristian New Order Received: Yes - Notification Comment Comment: pt may be discharged when NST is reactive Disposition - Disposition OB Disposition: Discharge to home Discharge Date: 01/03/17 Discharge Time: 18:51 I agree with the RN Medical Screening Exam: Yes Risk & Benefit of care provided described in d/c instruction: Yes Diagnosis: FALSE LABOR BEFORE 37 COMPLETED WEEKS OF GEST, THIRD TRI
== END 2017-01-03 18:54 | disposition home or self-care (01) ==
LOC: FBPOP 18:12
PROVIDERS: ATTEND Obstetrics & Gynecology
DX: O47.03 False labor before 37 completed weeks of gestation, third trimester (principal); Z3A.32 32 weeks gestation of pregnancy
CPT/HCPCS: 59025; 84112; G0463; 99213

== ENCOUNTER 2017-02-06 | Outpatient (CLI) | payer OTHER ==
--- NOTE | 2017-03-03 09:12 | P.MSEPDOC ---
Presenting Problems - Arrival Data Date of Arrival on Unit: 02/06/17 Time of Arrival on Unit: 20:09 Mode of Transport: Wheelchair - Complaint OB-Reason for Admission/Chief Complaint: Pain Medical History - Information : 2 Para: 1 Term: 1 : 0 Abortions: Spontaneous or Elective: 0 Number of Living Children: 1 - Gestational Age Gestational Age by SHAILESH (wks/days): 37 Weeks and 3 Days Review of Systems - Review of Systems Constitutional: No problems Breast: No problems ENT: No problems Cardiovascular: No problems Respiratory: No problems Gastrointestinal: No problems Genitourinary: No problems Musculoskeletal: No problems Neurological: No problems Skin: No problems Vital Signs - Temperature Temperature: 96.5 F Temperature Source: Oral - Pulse Right Brachial Pulse Rate: 85 Pulse Assessment Method: Automatic Cuff - Respirations Respiratory Rate: 18 Oxygen Delivery Method: Room Air O2 Sat by Pulse Oximetry: 98 - Blood Pressure Right Arm Blood Pressure: 129/72 Blood Pressure Mean: 91 Blood Pressure Source: Automatic Cuff Medical Screen Scoring (Pre) - Uterine Contractions Frequency: N/A Duration: N/A Intensity: N/A - Maternal Vital Signs Maternal Temperature: N/A Signs of Preeclampsia: N/A Maternal Respirations: N/A - Maternal Trauma Maternal Trauma: N/A - Assessment Baseline FHR: 135 Heart Rate - NICHD Category: Category I (Normal) = 0 NST: Reactive Position: N/A Station: N/A - Total Score Total Score (Pre): 0 - Level of Risk Level of Risk: Low (0-5) Physician Notification (Pre) - Physician Notified Physician Notified Date: 02/06/17 Physician Notified Time: 20:48 Physician/Practitioner Notifed:: Dr. Vivar Spoke With: Dr. Vivar New Order Received: Yes - Notification Comment Comment: Dr. Vivar given report on pt in triage, vag exam, reactive nst. Orders recieved. to recheck pt after 30 minutes and if no change, d/c pt to home Medical Screen Scoring (Post) - Cervical Exam Dilation: 1-3 cm = 1 Effacement: Exam Deferred Membranes: Intact - Uterine Contractions Frequency: N/A Duration: N/A Intensity: N/A - Maternal Vital Signs Maternal Temperature: N/A Signs of Preeclampsia: N/A - Assessment Heart Rate: 135 Heart Rate - NICHD Category: Category I (Normal) = 0 NST: Reactive Position: N/A Station: N/A - Total Score Total Score (Post): 1 - Post Treatment Level of Risk Post Treatment Level of Risk: Low (0-5) Physician Notification (Post) - Physician Notified Physician Notified Date: 02/06/17 Physician Notified Time: 20:48 Physician/Practitioner Notified:: Dr. Vivar Spoke With: Dr. Vivar New Order Received: Yes (D/c pt to home.) - Notification Comment Comment: Dr. Vivar given report on pt in triage, vag exam, reactive nst. Orders recieved. to recheck pt after 30 minutes and if no change, d/c pt to home. After 30 minutes pt was rechecked and made no cervical change Disposition - Disposition OB Disposition: Discharge to home Discharge Date: 02/06/17 Discharge Time: 21:22 I agree with the RN Medical Screening Exam: Yes Risk & Benefit of care provided described in d/c instruction: Yes Diagnosis: FALSE LABOR AT OR AFTER 37 COMPLETED WEEKS OF GESTATION
== END 2017-02-06 21:22 | disposition home or self-care (01) ==
CPT/HCPCS: 59025; G0463; 99213

== ENCOUNTER 2017-02-11 20:22 | Outpatient (CLI) | payer OTHER ==
[2017-02-11 20:50] VITALS: BP 129/65; PULSE 84; RESP 18; TEMP 97.1
--- NOTE | 2017-03-08 20:06 | P.MSEPDOC ---
Presenting Problems - Arrival Data Date of Arrival on Unit: 02/11/17 Time of Arrival on Unit: 20:21 Mode of Transport: Wheelchair - Complaint OB-Reason for Admission/Chief Complaint: Possible Onset of Labor Comment: pressure and contractions, rating pain at 15/10 Medical History - Information : 2 Para: 1 Term: 1 : 0 Abortions: Spontaneous or Elective: 0 Number of Living Children: 1 - Gestational Age Gestational Age by SHAILESH (wks/days): 38 Weeks and 2 Days - History Complications: GBS+ Review of Systems - Review of Systems Constitutional: No problems Breast: No problems ENT: No problems Cardiovascular: No problems Respiratory: No problems Gastrointestinal: No problems Genitourinary: No problems Musculoskeletal: No problems Neurological: No problems Skin: No problems Vital Signs - Temperature Temperature: 97.1 F Temperature Source: Temporal Artery Scan - Pulse Right Brachial Pulse Rate: 84 Pulse Assessment Method: Automatic Cuff - Respirations Respiratory Rate: 18 Oxygen Delivery Method: Room Air - Blood Pressure Right Arm Blood Pressure: 129/65 Blood Pressure Mean: 86 Blood Pressure Source: Automatic Cuff Medical Screen Scoring (Pre) - Cervical Exam Dilation: 1-3 cm = 1 Membranes: Intact - Uterine Contractions Frequency: > 5 minutes apart = 1 Duration: N/A Intensity: N/A - Maternal Vital Signs Maternal Temperature: N/A Maternal Blood Pressure: N/A Signs of Preeclampsia: N/A Maternal Respirations: N/A - Maternal Trauma Maternal Trauma: N/A - Assessment Baseline FHR: 130 Heart Rate - NICHD Category: Category I (Normal) = 0 NST: Reactive Position: N/A Station: N/A - Total Score Total Score (Pre): 2 - Level of Risk Level of Risk: Low (0-5) Physician Notification (Pre) - Physician Notified Physician Notified Time: 21:35 New Order Received: Yes - Notification Comment Comment: discharge pt home, follow up with Dr. Pena for induction on the Disposition - Disposition OB Disposition: Discharge to home, Written follow up instructions reviewed Discharge Date: 02/11/17 Discharge Time: 21:40 I agree with the RN Medical Screening Exam: Yes Risk & Benefit of care provided described in d/c instruction: Yes Diagnosis: FALSE LABOR AT OR AFTER 37 COMPLETED WEEKS OF GESTATION
== END 2017-02-11 21:40 | disposition home or self-care (01) ==
LOC: FBPOP 20:22
PROVIDERS: ATTEND Obstetrics & Gynecology
DX: O47.1 False labor at or after 37 completed weeks of gestation (principal); Z3A.38 38 weeks gestation of pregnancy
CPT/HCPCS: 59025; G0463; 99213

== ENCOUNTER → 2018-01-06 | Outpatient (CLI) | payer OTHER ==
--- NOTE | 2018-01-06 14:27 | US ---
EXAMINATION TYPE: Transabdominal DATE OF EXAM: 08/26/17 COMPARISON: NONE CLINICAL HISTORY: 099.211 Obesity complicating , first trim. EXAM PERFORMED: Transvaginal (TV) and Transabdominal (TA) EXAM MEASUREMENTS: GESTATIONAL AGE / DATING Physician Established: Not yet established Dates by LMP: LMP unknown (9 weeks/6 days) EDC: 08/05/2018 Dates by First Scan: No previous this is first scan Dates by Current Scan for: (8 weeks/5 days) EDC: 08/13/2018 MATERNAL ANATOMY Uterus: 9.2 x 5.0 x 6.6 Right Ovary: 2.3 x 1.5 x 1.7 Left Ovary: 1.5 x 1.4 x 1.4 Post CDS / Adnexa: wnl Presence of free fluid: no Presence of corpus luteal cyst: no GESTATION / SURVEY CRL: 2.2 (8 weeks/6 days) MSD: 3.3 (8 weeks/3 days) Yolk Sac (normal less than 6mm): 3 Heart Rate: 161 bpm Rhythm: Normal IUP: Viable IUP IMPRESSION: Single viable intrauterine .
== END | disposition home or self-care (01) ==
LOC: RADUSWWP 13:41
PROVIDERS: ATTEND Obstetrics & Gynecology
DX: O99.211 Obesity complicating pregnancy, first trimester (principal); Z3A.09 9 weeks gestation of pregnancy
CPT/HCPCS: 76801; 76817

== ENCOUNTER 2018-01-24 17:23 | Emergency (ER) | payer OTHER ==
[2018-01-24 17:36] VITALS: RESP 16; TEMP 98.8
[2018-01-24] MEDS ORDERED: SODIUM CHLORIDE 0.9% 1,000 ML IV STA (18:13)
[2018-01-24] MEDS ORDERED: METOCLOPRAMIDE 5 MG/ML 2 ML VIAL IVP STA (18:13)
--- NOTE | 2018-01-24 18:22 | ED ---
General Adult HPI - General Chief complaint: Nausea/Vomiting/Diarrhea Stated complaint: vomiting Time Seen by Provider: 01/24/18 17:59 Source: patient, RN notes reviewed Mode of arrival: ambulatory Limitations: no limitations - History of Present Illness Initial comments: Patient's a 23-year-old female who is approximately 11 weeks by ultrasound presented to the emergency room today with a chief complaint of increased nausea vomiting. She states that she's had symptoms of nausea vomiting throughout the . She states the symptoms are worse today having a difficult time keeping down any liquids or food. Patient does not some cramping in the abdomen after vomiting. She denies any vaginal bleeding or discharge. Denies any other complaints. Patient denies any recent fever, chills, shortness of breath, chest pain, back pain, dysuria or hematuria, constipation or diarrhea, headaches or visual changes, or any other complaints. - Related Data Home Medications Medication Instructions Recorded Confirmed Levothyroxine Sodium [Synthroid] 25 mcg PO DAILY 10/02/16 02/11/17 Pnv,Calcium 72/Iron/Folic Acid 1 tab PO DAILY 10/02/16 02/11/17 [ Plus Tablet] Previous Rx's Medication Instructions Recorded Cephalexin [Keflex] 500 mg PO Q12HR 7 Days cap 01/24/18 Allergies Allergy/AdvReac Type Severity Reaction Status Date / Time blueberry Allergy Rash/Hives Verified 01/24/18 17:36 Jama Allergy Rash/Hives Verified 01/24/18 17:36 citalopram [From Celexa] Allergy Unknown Verified 01/24/18 17:36 diphenhydramine HCl Allergy Swelling Verified 01/24/18 17:36 [From Benadryl] iodine Allergy Rash/Hives Verified 01/24/18 17:36 peas Allergy Rash/Hives Verified 01/24/18 17:36 red dye Allergy Rash/Hives Verified 01/24/18 17:36 duloxetine HCl AdvReac Hallucinati Verified 01/24/18 17:36 [From Cymbalta] ons fluoxetine [From Prozac] AdvReac Hallucinati Verified 01/24/18 17:36 ons topiramate [From Topamax] AdvReac Hallucinati Verified 01/24/18 17:36 ons Review of Systems ROS Statement: Those systems with pertinent positive or pertinent negative responses have been documented in the HPI. ROS Other: All systems not noted in ROS Statement are negative. Past Medical History Past Medical History: Seizure Disorder Additional Past Medical History / Comment(s): BACK PAIN History of Any Multi-Drug Resistant Organisms: MRSA Date of last positivie culture/infection: summer 2012 MDRO Source:: Left axillae Past Surgical History: Cholecystectomy Past Psychological History: Anxiety, Depression Smoking Status: Never smoker Past Alcohol Use History: None Reported Past Drug Use History: None Reported General Exam - General Exam Comments Initial Comments: General: The patient is awake and alert, in no distress, and does not appear acutely ill. Eye: Pupils are equal, round and reactive to light, extra-ocular movements are intact. No nystagmus. There is normal conjunctiva bilaterally. No signs of icterus. Ears, nose, mouth and throat: There are moist mucous membranes and no oral lesions. Neck: The neck is supple, there is no tenderness or JVD. Cardiovascular: There is a regular rate and rhythm. No murmur, rub or gallop is appreciated. Respiratory: Lungs are clear to auscultation, respirations are non-labored, breath sounds are equal. No wheezes, stridor, rales, or rhonchi. Gastrointestinal: Soft, non-distended, non-tender abdomen without masses or organomegaly noted. There is no rebound or guarding present. No CVA tenderness. Musculoskeletal: Normal ROM, no tenderness. Sensation intact. Neurological: A&O x 3. CN II-XII intact, There are no obvious motor or sensory deficits. Coordination appears grossly intact. Speech is normal. Skin: Skin is warm and dry and no rashes or lesions are noted. Psychiatric: Cooperative, appropriate mood & affect, normal judgment. Limitations: no limitations Course Vital Signs 01/24/18 17:34 Temperature 98.8 F Pulse Rate 113 H Respiratory 16 Rate Blood Pressure 100/48 O2 Sat by Pulse 100 Oximetry Medical Decision Making - Medical Decision Making Patient reexamined at this time shows no signs of distress. Patient has tolerated by mouth fluid and food here in the emergency room. States she's feeling much better. Patient's labs been reviewed. Patient did have mild leukocytosis. Had multiple episodes nausea vomiting. Patient urinalysis shows possible UTI. Culture is pending. Patient will be started on antibiotics of Keflex. Patient is advised following up with family doctor/[facility] over the next 2 days. Advised return if symptoms increase or worsen. - Lab Data Result diagrams: 01/24/18 18:35 01/24/18 18:35 Lab Results 01/24/18 01/24/18 01/24/18 Range/Units 18:35 18:35 18:35 WBC 13.5 H (3.8-10.6) k/uL RBC 4.51 (3.80-5.40) m/uL Hgb 12.6 (11.4-16.0) gm/dL Hct 38.2 (34.0-46.0) % MCV 84.8 (80.0-100.0) fL MCH 27.9 (25.0-35.0) pg MCHC 32.9 (31.0-37.0) g/dL RDW 13.0 (11.5-15.5) % Plt Count 322 (150-450) k/uL Neutrophils % 83 % Lymphocytes % 9 % Monocytes % 6 % Eosinophils % 1 % Basophils % 0 % Neutrophils # 11.2 H (1.3-7.7) k/uL Lymphocytes # 1.2 (1.0-4.8) k/uL Monocytes # 0.8 (0-1.0) k/uL Eosinophils # 0.2 (0-0.7) k/uL Basophils # 0.0 (0-0.2) k/uL Sodium 135 L (137-145) mmol/L Potassium 4.1 (3.5-5.1) mmol/L Chloride 103 (98-107) mmol/L Carbon Dioxide 21 L (22-30) mmol/L Anion Gap 11 mmol/L BUN 6 L (7-17) mg/dL Creatinine 0.65 (0.52-1.04) mg/dL Est GFR (CKD-EPI)AfAm >90 (>60 ml/min/1.73 sqM) Est GFR (CKD-EPI)NonAf >90 (>60 ml/min/1.73 sqM) Glucose 98 (74-99) mg/dL Calcium 9.6 (8.4-10.2) mg/dL Total Bilirubin 0.6 (0.2-1.3) mg/dL AST 25 (14-36) U/L ALT 37 (9-52) U/L Alkaline Phosphatase 117 (38-126) U/L Total Protein 7.2 (6.3-8.2) g/dL Albumin 4.2 (3.5-5.0) g/dL Urine Color Yellow Urine Appearance Cloudy H (Clear) Urine pH 6.5 (5.0-8.0) Ur Specific [place] 1.028 (1.001-1.035) Urine Protein 2+ H (Negative) Urine Glucose (UA) Negative (Negative) Urine Ketones Trace H (Negative) Urine Blood Negative (Negative) Urine Nitrite Negative (Negative) Urine Bilirubin Negative (Negative) Urine Urobilinogen 12.0 (<2.0) mg/dL Ur Leukocyte Esterase Large H (Negative) Urine RBC 5 (0-5) /hpf Urine WBC 15 H (0-5) /hpf Ur Squamous Epith Cells 17 H (0-4) /hpf Urine Bacteria Few H (None) /hpf Urine Mucus Few H (None) /hpf Disposition Clinical Impression: Hyperemesis, Hyperemesis gravidarum Disposition: HOME SELF-CARE Condition: Good Instructions: Hyperemesis Gravidarum (ED) Additional Instructions: Please follow-up with [facility]/family doctor in the next 2 days of symptoms have not improved. Please return to emergency room if the symptoms increase or worsen or for any other concerns. Prescriptions: Cephalexin [Keflex] 500 mg PO Q12HR 7 Days cap Is patient prescribed a controlled substance at d/c from ED?: No Referrals: Ciro Harman MD [Primary Care Provider] - 1-2 days Time of Disposition: 19:40
[2018-01-24 18:43] LABS: Basophils % (A) 0 %; Eosinophils # (A) 0.2 k/uL (0-0.7); Eosinophils % (A) 1 %; HCT 38.2 % (34.0-46.0); HGB 12.6 gm/dL (11.4-16.0); Lymphocytes # (A) 1.2 k/uL (1.0-4.8); Lymphocytes % (A) 9 %; MCH 27.9 pg (25.0-35.0); MCHC 32.9 g/dL (31.0-37.0); MCV 84.8 fL (80.0-100.0); Mean Platelet Volume 7.2; Monocytes # (A) 0.8 k/uL (0-1.0); Monocytes % (A) 6 %; Neutrophils # (A) 11.2 k/uL (1.3-7.7); Neutrophils % (A) 83 %; Platelet Count 322 k/uL (150-450); RBC 4.51 m/uL (3.80-5.40); WBC 13.5 k/uL (3.8-10.6)
[2018-01-24 18:49] LABS: Appearance,Urine Cloudy (Clear); Bacteria,Urine Few /hpf; Bilirubin,Urine Negative (Negative); Blood,Urine Negative (Negative); Color,Urine Yellow; Glucose,Urine (UA) Negative (Negative); Ketones,Urine Trace (Negative); Leukocyte Esterase,Urine Large (Negative); Mucus,Urine Few /hpf; Nitrite,Urine Negative (Negative); PH, Urine 6.5 (5.0-8.0); Protein,Urine 2+ (Negative); RBC,Urine 5 /hpf (0-5); Specific Gravity,Urine 1.028 (1.001-1.035); Squamous Epithelial Cell,Urine 17 /hpf (0-4); WBC,Urine 15 /hpf (0-5)
[2018-01-24 18:54] LABS: ALT 37 U/L (9-52); AST 25 U/L (14-36); Albumin 4.2 g/dL (3.5-5.0); Alkaline Phosphatase 117 U/L (38-126); Anion Gap 11 mmol/L; Blood Urea Nitrogen 6 mg/dL (7-17); Calcium 9.6 mg/dL (8.4-10.2); Carbon Dioxide 21 mmol/L (22-30); Chloride 103 mmol/L (98-107); Glucose 98 mg/dL (74-99); Potassium 4.1 mmol/L (3.5-5.1); Sodium 135 mmol/L (137-145); Total Bilirubin 0.6 mg/dL (0.2-1.3); Total Protein 7.2 g/dL (6.3-8.2)
[2018-01-24 19:52] VITALS: BP 123/72; PULSE 87
== END 2018-01-24 19:52 | disposition home or self-care (01) ==
LOC: EC 17:23
DX: O21.0 Mild hyperemesis gravidarum (principal); O99.111 Other diseases of the blood and blood-forming organs and certain disorders involving the immune mechanism complicating pregnancy, first trimester; D72.829 Elevated white blood cell count, unspecified; O99.89 Other specified diseases and conditions complicating pregnancy, childbirth and the puerperium; R10.9 Unspecified abdominal pain; Z79.899 Other long term (current) drug therapy; Z88.8 Allergy status to other drugs, medicaments and biological substances; Z91.018 Allergy to other foods; Z91.048 Other nonmedicinal substance allergy status; Z86.14 Personal history of Methicillin resistant Staphylococcus aureus infection; Z90.49 Acquired absence of other specified parts of digestive tract; Z3A.11 11 weeks gestation of pregnancy
CPT/HCPCS: 99284; 96374; 96361; 36415; 80053; 85025; 81001; J2765

== ENCOUNTER → 2018-06-12 | Outpatient (CLI) | payer OTHER ==
--- NOTE | 2018-06-12 16:18 | US ---
EXAMINATION TYPE: US OB >= 14 wk fetus DATE OF EXAM: 06/12/2018 COMPARISON: None CLINICAL HISTORY: Z34.90 NORMAL PREGNANCYU/S for growth per order TECHNIQUE: Transabdominal (TA) GESTATIONAL AGE / DATING Physician Established: (31 weeks/1 days) EDC: 08/13/2018 Dates by First Scan: (31 weeks/1 days) EDC: 08/13/2018 Dates by Current Scan: (31 weeks/5 days) EDC: 08/09/2018 SURVEY IUP: Single PLACENTA: Posterior/Fundal PREVIA: No Previa NENO: 11.6 cm Normal CERVICAL LENGTH (transabdominal: norm > 3.0cm): 3.3 cm BIOMETRY PRESENTATION: Vertex BPD: 7.8 cm 31 weeks / 3 days HC: 28.4 cm 31 weeks / 2 days AC: 28.6 cm 32 weeks / 5 days FL: 6.0 cm 31 weeks / 2 days ESTIMATED WEIGHT IN GRAMS: 1869 grams ESTIMATED WEIGHT IN LBS/OZ: 4 lbs. 2 oz. WEIGHT PERCENTAGE BASED ON ESTABLISHED DATES: 66% HC/AC: 0.99 Normal FL/AC: 21 Normal HEART RATE: 146 bpm RHYTHM: Normal Single, viable IUP/ Growth parameters in 66th percentile/ No abnormality visualized at this time IMPRESSION: Single intrauterine gestation estimated at 31 weeks 5 days gestation based on current ultrasound tomy urements. Cardiac activity measures 146 bpm.
== END | disposition home or self-care (01) ==
LOC: RADUSWWP 15:41
PROVIDERS: ATTEND Obstetrics & Gynecology
DX: Z34.93 Encounter for supervision of normal pregnancy, unspecified, third trimester (principal)
CPT/HCPCS: 76805

== ENCOUNTER 2019-01-06 15:25 | Emergency (ER) | payer OTHER ==
[2019-01-06 16:16] VITALS: RESP 18
[2019-01-06] MEDS ORDERED: SODIUM CHLORIDE 0.9% 1,000 ML IV ONE (16:42)
--- NOTE | 2019-01-06 17:18 | ED ---
General Adult HPI - General Chief complaint: Vaginal Bleeding Stated complaint: 13 wks preg/vaginal bleeding Time Seen by Provider: 01/06/19 16:26 Source: patient, RN notes reviewed Mode of arrival: ambulatory Limitations: no limitations - History of Present Illness Initial comments: 24-year-old female with an LMP of 10/03/2018 presents to the emergency department for chief clinic vaginal bleeding. Patient states she is currently 13 weeks . States she has been bleeding intermittently for the past 3 days. States it is very lights in nature but she is concerned. Denies any previous history of miscarriage. Denies any concern for STDs. Denies any pelvic pain but does admit to light cramping.Patient has no other complaints at this time including shortness of breath, chest pain, abdominal pain, nausea or vomiting, headache, or visual changes. - Related Data Home Medications Medication Instructions Recorded Confirmed Levothyroxine Sodium [Synthroid] 25 mcg PO DAILY 10/02/16 02/11/17 Pnv,Calcium 72/Iron/Folic Acid 1 tab PO DAILY 10/02/16 02/11/17 [ Plus Tablet] Previous Rx's Medication Instructions Recorded Cephalexin [Keflex] 500 mg PO Q12HR 7 Days cap 01/24/18 Metoclopramide HCl [Reglan] 10 mg PO Q6HR PRN #10 tab 01/24/18 Allergies Allergy/AdvReac Type Severity Reaction Status Date / Time blueberry Allergy Rash/Hives Verified 01/06/19 16:12 Jama Allergy Rash/Hives Verified 01/06/19 16:12 citalopram [From Celexa] Allergy Unknown Verified 01/06/19 16:12 diphenhydramine HCl Allergy Swelling Verified 01/06/19 16:12 [From Benadryl] iodine Allergy Rash/Hives Verified 01/06/19 16:12 peas Allergy Rash/Hives Verified 01/06/19 16:12 red dye Allergy Rash/Hives Verified 01/06/19 16:12 duloxetine HCl AdvReac Hallucinati Verified 01/06/19 16:12 [From Cymbalta] ons fluoxetine [From Prozac] AdvReac Hallucinati Verified 01/06/19 16:12 ons topiramate [From Topamax] AdvReac Hallucinati Verified 01/06/19 16:12 ons Review of Systems ROS Statement: Those systems with pertinent positive or pertinent negative responses have been documented in the HPI. ROS Other: All systems not noted in ROS Statement are negative. Past Medical History Past Medical History: Seizure Disorder Additional Past Medical History / Comment(s): BACK PAIN History of Any Multi-Drug Resistant Organisms: MRSA Date of last positivie culture/infection: summer 2012 MDRO Source:: Left axillae Past Surgical History: Cholecystectomy Past Psychological History: Anxiety, Depression, PTSD Smoking Status: Never smoker Past Alcohol Use History: None Reported Past Drug Use History: None Reported General Exam Limitations: no limitations General appearance: alert, in no apparent distress Head exam: Present: atraumatic, normocephalic, normal inspection Eye exam: Present: normal appearance, PERRL, EOMI. Absent: scleral icterus, conjunctival injection, periorbital swelling ENT exam: Present: normal exam, mucous membranes moist Neck exam: Present: normal inspection, full ROM. Absent: tenderness, meningismus, lymphadenopathy Respiratory exam: Present: normal lung sounds bilaterally. Absent: respiratory distress, wheezes, rales, rhonchi, stridor Cardiovascular Exam: Present: regular rate, normal rhythm, normal heart sounds. Absent: systolic murmur, diastolic murmur, rubs, gallop, clicks GI/Abdominal exam: Present: soft, normal bowel sounds. Absent: distended, tenderness, guarding, rebound, rigid External exam: Present: normal external exam. Absent: erythema, swelling, l esions, lacerations, ecchymosis Speculum exam: Present: vaginal bleeding (Very minimal dark bleeding noted). Absent: normal speculum exam, erythema, vaginal discharge, cervical discharge, foreign body, tissue, laceration By manual exam: Present: normal by manual exam. Absent: cervical motion tenderness, adnexal tenderness, adnexal mass, uterine enlargement, uterine tenderness Course Vital Signs 01/06/19 01/06/19 16:13 19:02 Temperature 98.7 F 98.6 F Pulse Rate 83 86 Respiratory 18 18 Rate Blood Pressure 119/77 114/69 O2 Sat by Pulse 99 100 Oximetry Medical Decision Making - Medical Decision Making 24-year-old female with an LMP of 10/03/2018 currently 13 weeks presents to the emergency department for vaginal bleeding 3 days. Mild cramping no pelvic pain. Pelvic exam unremarkable. Trichomonas negative. Vitals are stable. CBC CMP unremarkable. Urine will be cultured. Patient is A+ blood type. No RhoGAM needed. Ultrasound shows evidence of intrauterine demise at approximately 8 weeks gestation. I did attempt to contact Dr. Pena, patient's [facility] INTER[facility]ION SPECIALIST twice but was unsuccessful. Therefore I contacted city call [facility] INTER[facility] SPECIALIST Dr. Walker who recommends close follow-up with Dr. Pena tomorrow morning. - Lab Data Result diagrams: 01/06/19 17:38 01/06/19 17:38 Lab Results 01/06/19 01/06/19 01/06/19 Range/Units 17:20 17:20 17:20 WBC (3.8-10.6) k/uL RBC (3.80-5.40) m/uL Hgb (11.4-16.0) gm/dL Hct (34.0-46.0) % MCV (80.0-100.0) fL MCH (25.0-35.0) pg MCHC (31.0-37.0) g/dL RDW (11.5-15.5) % Plt Count (150-450) k/uL Neutrophils % % Lymphocytes % % Monocytes % % Eosinophils % % Basophils % % Neutrophils # (1.3-7.7) k/uL Lymphocytes # (1.0-4.8) k/uL Monocytes # (0-1.0) k/uL Eosinophils # (0-0.7) k/uL Basophils # (0-0.2) k/uL Sodium (137-145) mmol/L Potassium (3.5-5.1) mmol/L Chloride (98-107) mmol/L Carbon Dioxide (22-30) mmol/L Anion Gap mmol/L BUN (7-17) mg/dL Creatinine (0.52-1.04) mg/dL Est GFR (CKD-EPI)AfAm (>60 ml/min/1.73 sqM) Est GFR (CKD-EPI)NonAf (>60 ml/min/1.73 sqM) Glucose (74-99) mg/dL Calcium (8.4-10.2) mg/dL Total Bilirubin (0.2-1.3) mg/dL AST (14-36) U/L ALT (9-52) U/L Alkaline Phosphatase (38-126) U/L Total Protein (6.3-8.2) g/dL Albumin (3.5-5.0) g/dL HCG, Quant mIU/mL Urine Color Yellow Urine Appearance Clear (Clear) Urine pH 5.5 (5.0-8.0) Ur Specific Dorothy 1.037 H (1.001-1.035) Urine Protein Trace H (Negative) Urine Glucose (UA) Negative (Negative) Urine Ketones Trace H (Negative) Urine Blood Negative (Negative) Urine Nitrite Negative (Negative) Urine Bilirubin Negative (Negative) Urine Urobilinogen 2.0 (<2.0) mg/dL Ur Leukocyte Esterase Small H (Negative) Urine RBC 5 (0-5) /hpf Urine WBC 6 H (0-5) /hpf Ur Squamous Epith Cells 5 H (0-4) /hpf Urine Mucus Rare H (None) /hpf Urine HCG, Qual Detected (Not Detectd) Trichomonas Ag (Rapid) Negative (Negative) Blood Type Blood Type Recheck 01/06/19 01/06/19 01/06/19 Range/Units 17:38 17:38 17:38 WBC 9.1 (3.8-10.6) k/uL RBC 4.51 (3.80-5.40) m/uL Hgb 12.4 (11.4-16.0) gm/dL Hct 37.9 (34.0-46.0) % MCV 84.0 (80.0-100.0) fL MCH 27.5 (25.0-35.0) pg MCHC 32.7 (31.0-37.0) g/dL RDW 14.1 (11.5-15.5) % Plt Count 354 (150-450) k/uL Neutrophils % 55 % Lymphocytes % 32 % Monocytes % 5 % Eosinophils % 5 % Basophils % 1 % Neutrophils # 5.0 (1.3-7.7) k/uL Lymphocytes # 2.9 (1.0-4.8) k/uL Monocytes # 0.5 (0-1.0) k/uL Eosinophils # 0.5 (0-0.7) k/uL Basophils # 0.1 (0-0.2) k/uL Sodium 139 (137-145) mmol/L Potassium 4.5 (3.5-5.1) mmol/L Chloride 105 (98-107) mmol/L Carbon Dioxide 22 (22-30) mmol/L Anion Gap 12 mmol/L BUN 13 (7-17) mg/dL Creatinine 0.63 (0.52-1.04) mg/dL Est GFR (CKD-EPI)AfAm >90 (>60 ml/min/1.73 sqM) Est GFR (CKD-EPI)NonAf >90 (>60 ml/min/1.73 sqM) Glucose 92 (74-99) mg/dL Calcium 9.7 (8.4-10.2) mg/dL Total Bilirubin 0.5 (0.2-1.3) mg/dL AST 28 (14-36) U/L ALT 18 (9-52) U/L Alkaline Phosphatase 93 (38-126) U/L Total Protein 7.5 (6.3-8.2) g/dL Albumin 4.4 (3.5-5.0) g/dL HCG, Quant 6166.5 mIU/mL Urine Color Urine Appearance (Clear) Urine pH (5.0-8.0) Ur Specific Dorothy (1.001-1.035) Urine Protein (Negative) Urine Glucose (UA) (Negative) Urine Ketones (Negative) Urine Blood (Negative) Urine Nitrite (Negative) Urine Bilirubin (Negative) Urine Urobilinogen (<2.0) mg/dL Ur Leukocyte Esterase (Negative) Urine RBC (0-5) /hpf Urine WBC (0-5) /hpf Ur Squamous Epith Cells (0-4) /hpf Urine Mucus (None) /hpf Urine HCG, Qual (Not Detectd) Trichomonas Ag (Rapid) (Negative) Blood Type A Positive Blood Type Recheck No Disposition Clinical Impression: Missed Disposition: HOME SELF-CARE Condition: Good Instructions (If sedation given, give patient instructions): Miscarriage (ED) Additional Instructions: Please follow-up with your [facility] INTERVENTION SPECIALIST tomorrow morning. If you have any worsening symptoms return to the emergency department. Is patient prescribed a controlled substance at d/c from ED?: No Referrals: Ciro Harman MD [Primary Care Provider] - 1-2 days Ash Pena DO [REFERRING] - 1-2 days Time of Disposition: 19:40
[2019-01-06 17:53] LABS: Appearance,Urine Clear (Clear); Bilirubin,Urine Negative (Negative); Blood,Urine Negative (Negative); Color,Urine Yellow; Glucose,Urine (UA) Negative (Negative); Ketones,Urine Trace (Negative); Leukocyte Esterase,Urine Small (Negative); Mucus,Urine Rare /hpf; Nitrite,Urine Negative (Negative); PH, Urine 5.5 (5.0-8.0); Protein,Urine Trace (Negative); RBC,Urine 5 /hpf (0-5); Specific Gravity,Urine 1.037 (1.001-1.035); Squamous Epithelial Cell,Urine 5 /hpf (0-4); WBC,Urine 6 /hpf (0-5)
[2019-01-06 17:54] LABS: Basophils # (A) 0.1 k/uL (0-0.2); Basophils % (A) 1 %; Eosinophils # (A) 0.5 k/uL (0-0.7); Eosinophils % (A) 5 %; HCT 37.9 % (34.0-46.0); HGB 12.4 gm/dL (11.4-16.0); Lymphocytes # (A) 2.9 k/uL (1.0-4.8); Lymphocytes % (A) 32 %; MCH 27.5 pg (25.0-35.0); MCHC 32.7 g/dL (31.0-37.0); Mean Platelet Volume 7.4; Monocytes # (A) 0.5 k/uL (0-1.0); Monocytes % (A) 5 %; Neutrophils % (A) 55 %; Platelet Count 354 k/uL (150-450); RBC 4.51 m/uL (3.80-5.40); RDW 14.1 % (11.5-15.5); WBC 9.1 k/uL (3.8-10.6)
[2019-01-06 18:03] LABS: ALT 18 U/L (9-52); AST 28 U/L (14-36); African American GFR (CKD) >90 (>60 ml/min/1.73 sqM); Albumin 4.4 g/dL (3.5-5.0); Alkaline Phosphatase 93 U/L (38-126); Anion Gap 12 mmol/L; Blood Urea Nitrogen 13 mg/dL (7-17); Calcium 9.7 mg/dL (8.4-10.2); Carbon Dioxide 22 mmol/L (22-30); Chloride 105 mmol/L (98-107); Glucose 92 mg/dL (74-99); Potassium 4.5 mmol/L (3.5-5.1); Sodium 139 mmol/L (137-145); Total Bilirubin 0.5 mg/dL (0.2-1.3); Total Protein 7.5 g/dL (6.3-8.2)
[2019-01-06] MEDS ORDERED: KETOROLAC 30 MG/ML 1 ML VIAL IVP PRN (18:06)
[2019-01-06] MEDS ORDERED: NALOXONE 0.4 MG/ML 1 ML VIAL IV PRN (18:06)
[2019-01-06] MEDS ORDERED: SODIUM CHLORIDE 0.9% 1,000 ML IV SCH (18:15)
[2019-01-06 18:18] LABS: HCG,Quantitative Serum 6166.5 mIU/mL
--- NOTE | 2019-01-06 18:48 | US ---
EXAMINATION TYPE: Transabdominal DATE OF EXAM: 01/06/2019 6:27 PM COMPARISON: US CLINICAL HISTORY: pain. Pain per order. Vaginal bleeding. . EXAM PERFORMED: Transvaginal (TV) and Transabdominal (TA) EXAM MEASUREMENTS: GESTATIONAL AGE / DATING Physician Established: Not yet established Dates by LMP: (13 weeks/4 days) EDC: 07/10/2019 Dates by First Scan: This is first scan Dates by Current Scan for: (8 weeks/0 days) EDC: 08/18/2019 MATERNAL ANATOMY Uterus: 10.1 x 7.1 x 6.1 cm. Appears heterogeneous. Anechoic area seen measurin.5 x 0.6 x 0.4 cm. Right Ovary: 3.4 x 1.6 x 1.9 cm Left Ovary: 2.6 x 1.7 x 1.2 cm. Post CDS / Adnexa: appear wnl Presence of free fluid: none seen Presence of corpus luteal cyst: none seen Presence of subchorionic bleed: not seen. uterus does appear heterogeneous. GESTATION / SURVEY CRL: 1.56 cm. (8 weeks/0 days) Yolk Sac (normal less than 6mm): not seen with certainty. Heart Rate: could not detect heart rate at this time. IUP: CRL visualized. Could not detect heart rate. Date of LMP: 10/03/2018 Beta HcG (if available): not available IMPRESSION: There is evidence of intrauterine demise at approximately 8 weeks gestation.
[2019-01-06 19:04] VITALS: BP 114/69; PULSE 86; TEMP 98.6
[2019-01-07 15:05] LABS: N. gonorrhoeae,PCR Negative (Neg,Equiv); Neisseria Source Vagina
[2019-01-07 15:06] LABS: C. trachomatis,PCR Negative (Neg,Equiv); Chlamydia trachomatis Source Vagina
== END 2019-01-06 20:14 | disposition home or self-care (01) ==
LOC: EC 15:25
DX: O02.1 Missed abortion (principal); Z79.890 Hormone replacement therapy; Z79.899 Other long term (current) drug therapy; Z91.041 Radiographic dye allergy status; Z91.018 Allergy to other foods; Z88.8 Allergy status to other drugs, medicaments and biological substances; Z86.14 Personal history of Methicillin resistant Staphylococcus aureus infection
CPT/HCPCS: 36415; 76801; 76817; 80053; 81001; 81025; 84702; 85025; 86900; 86901; 87070; 87086; 87205; 87491; 87591; 87808; 96360; 99284

== ENCOUNTER 2020-01-08 09:31 | Emergency (ER) | payer OTHER ==
[2020-01-08 09:34] VITALS: BP 104/74; TEMP 98.7
[2020-01-08] MEDS ORDERED: methylPREDNISolone SOD SUCCI 125 MG/2 ML VIAL IM ONE (09:53)
[2020-01-08] MEDS ORDERED: IPRATROPIUM-ALBUTEROL 3 ML NEB INHALATION STA (09:54)
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
[2020-01-08] MEDS ORDERED: ALBUTEROL HFA INHALER INHALATION STA (10:02)
--- NOTE | 2020-01-08 10:12 | XR ---
EXAMINATION TYPE: XR chest 2V DATE OF EXAM: 01/08/2020 COMPARISON: Chest x-ray April 23, 2015 HISTORY: Cough. TECHNIQUE: Frontal and lateral views of the chest are obtained. FINDINGS: There is no focal air space opacity, pleural effusion, or pneumothorax seen. The cardiac silhouette size remains within normal limits. The osseous structures are intact. IMPRESSION: No suspicious acute infiltrate. No significant change from prior.
[2020-01-08 10:32] VITALS: PULSE 80; RESP 16
== END 2020-01-08 10:31 | disposition home or self-care (01) ==
LOC: EC 09:31
DX: J40 Bronchitis, not specified as acute or chronic (principal); F17.200 Nicotine dependence, unspecified, uncomplicated; Z88.8 Allergy status to other drugs, medicaments and biological substances; Z91.018 Allergy to other foods; Z91.041 Radiographic dye allergy status; Z91.048 Other nonmedicinal substance allergy status; Z86.14 Personal history of Methicillin resistant Staphylococcus aureus infection
CPT/HCPCS: 94640; 71046; 99284; 96372; J2930

== ENCOUNTER 2020-02-09 18:09 | Emergency (ER) | payer OTHER ==
--- NOTE | 2020-02-09 18:36 | ED ---
General Adult HPI - General Chief complaint: Syncope Stated complaint: near syncope Time Seen by Provider: 02/09/20 18:34 Source: patient Mode of arrival: wheelchair Limitations: no limitations - History of Present Illness Initial comments: Patient is a 25-year-old female presenting to the emergency department with chief complaint of feeling like passing out. Patient states this occurred about one hour prior to arrival. Patient states she was in a sitting position and quickly got up and felt lightheaded for several seconds and then felt "out of it ". Patient states she never actually lost consciousness. States she does have history of seizures but her last one was over 7 years ago. States she is not being medicated for seizures anymore. States she has not been drinking much water. She denies any dizziness, headaches, lightheadedness at this time. Denies any nausea vomiting diarrhea. Denies one-sided weakness or paresthesias or any visual changes. - Related Data Home Medications Medication Instructions Recorded Confirmed Levothyroxine Sodium [Synthroid] 25 mcg PO DAILY 10/02/16 02/11/17 Pnv,Calcium 72/Iron/Folic Acid 1 tab PO DAILY 10/02/16 02/11/17 [ Plus Tablet] Previous Rx's Medication Instructions Recorded Cephalexin [Keflex] 500 mg PO Q12HR 7 Days cap 01/24/18 Metoclopramide HCl [Reglan] 10 mg PO Q6HR PRN #10 tab 01/24/18 Albuterol Inhaler [Ventolin Hfa 1 puff INHALATION QID #1 puff 01/08/20 Inhaler] Azithromycin [Zithromax Z-pack] 0 mg PO DIRECTED #6 tab 01/08/20 predniSONE [Deltasone] 20 mg PO DIRECTED #12 tab 01/08/20 Allergies Allergy/AdvReac Type Severity Reaction Status Date / Time blueberry Allergy Rash/Hives Verified 02/09/20 18:17 Jama Allergy Rash/Hives Verified 02/09/20 18:17 citalopram [From Celexa] Allergy Unknown Verified 02/09/20 18:17 diphenhydramine HCl Allergy Swelling Verified 02/09/20 18:17 [From Benadryl] iodine Allergy Rash/Hives Verified 02/09/20 18:17 peas Allergy Rash/Hives Verified 02/09/20 18:17 red dye Allergy Rash/Hives Verified 02/09/20 18:17 duloxetine HCl AdvReac Hallucinati Verified 02/09/20 18:17 [From Cymbalta] ons fluoxetine [From Prozac] AdvReac Hallucinati Verified 02/09/20 18:17 ons topiramate [From Topamax] AdvReac Hallucinati Verified 02/09/20 18:17 ons Review of Systems ROS Statement: Those systems with pertinent positive or pertinent negative responses have been documented in the HPI. ROS Other: All systems not noted in ROS Statement are negative. Past Medical History Past Medical History: Seizure Disorder Additional Past Medical History / Comment(s): BACK PAIN History of Any Multi-Drug Resistant Organisms: MRSA Date of last positivie culture/infection: summer 2012 MDRO Source:: Left axillae Past Surgical History: Cholecystectomy Past Psychological History: Anxiety, Depression, PTSD Smoking Status: Current every day smoker Past Alcohol Use History: Occasional Past Drug Use History: None Reported General Exam Limitations: no limitations General appearance: alert, in no apparent distress Head exam: Present: atraumatic, normocephalic, normal inspection Eye exam: Present: normal appearance, PERRL, EOMI. Absent: scleral icterus, conjunctival injection, nystagmus Pupils: Present: normal accommodation ENT exam: Present: normal exam, normal oropharynx, mucous membranes moist, TM's normal bilaterally, normal external ear exam Neck exam: Present: normal inspection, full ROM. Absent: tenderness, lymphadenopathy Respiratory exam: Present: normal lung sounds bilaterally. Absent: respiratory distress, wheezes, rales, rhonchi, stridor, chest wall tenderness Cardiovascular Exam: Present: regular rate, normal rhythm, normal heart sounds Extremities exam: Present: normal inspection, full ROM, normal capillary refill, other (+2 ulnar and radial pulses bilaterally.) Back exam: Present: normal inspection, full ROM. Absent: tenderness, CVA tenderness (R), CVA tenderness (L) Neurological exam: Present: alert, oriented X3, CN II-XII intact, normal gait Psychiatric exam: Present: normal affect, normal mood Skin exam: Present: warm, dry, intact, normal color Course Vital Signs 02/09/20 02/09/20 18:15 20:45 Temperature 98.0 F 98.4 F Pulse Rate 77 71 Respiratory 16 19 Rate Blood Pressure 117/71 126/79 O2 Sat by Pulse 100 99 Oximetry Medical Decision Making - Medical Decision Making Patient is 25-year-old female presenting to emergency Department with a chief complaint of feeling like passing out. Physical examination is unremarkable. Patient is resting comfortably at has stable vitals. Laboratory results are unremarkable. Patient was given IV fluids. On reevaluation, patient reports feeling much better and is comfortable going home. I suspect this near syncopal episode was secondary to orthostatic hypertension after she stood up quickly from a sitting position. Patient was advised to follow with a primary care phys ician and drink plenty of fluids. Strict return parameters were thoroughly discussed the patient was understanding and agreeable. Case discussed with physician. - Lab Data Result diagrams: 02/09/20 19:22 02/09/20 19:22 Lab Results 02/09/20 02/09/20 02/09/20 Range/Units 18:44 19:22 19:22 WBC 10.3 (3.8-10.6) k/uL RBC 4.44 (3.80-5.40) m/uL Hgb 12.6 (11.4-16.0) gm/dL Hct 38.3 (34.0-46.0) % MCV 86.2 (80.0-100.0) fL MCH 28.5 (25.0-35.0) pg MCHC 33.0 (31.0-37.0) g/dL RDW 13.0 (11.5-15.5) % Plt Count 320 (150-450) k/uL Neutrophils % 53 % Lymphocytes % 33 % Monocytes % 5 % Eosinophils % 7 % Basophils % 1 % Neutrophils # 5.4 (1.3-7.7) k/uL Lymphocytes # 3.4 (1.0-4.8) k/uL Monocytes # 0.5 (0-1.0) k/uL Eosinophils # 0.7 (0-0.7) k/uL Basophils # 0.1 (0-0.2) k/uL Sodium 140 (137-145) mmol/L Potassium 3.9 (3.5-5.1) mmol/L Chloride 109 H (98-107) mmol/L Carbon Dioxide 26 (22-30) mmol/L Anion Gap 5 mmol/L BUN 11 (7-17) mg/dL Creatinine 0.80 (0.52-1.04) mg/dL Est GFR (CKD-EPI)AfAm >90 (>60 ml/min/1.73 sqM) Est GFR (CKD-EPI)NonAf >90 (>60 ml/min/1.73 sqM) Glucose 109 H (74-99) mg/dL Calcium 9.6 (8.4-10.2) mg/dL Total Bilirubin 0.4 (0.2-1.3) mg/dL AST 23 (14-36) U/L ALT 14 (4-34) U/L Alkaline Phosphatase 80 (38-126) U/L Total Protein 6.6 (6.3-8.2) g/dL Albumin 4.1 (3.5-5.0) g/dL Urine HCG, Qual Not Detected (Not Detectd) - EKG Data EKG Comments: Sinus rhythm with nonspecific T waves in lead 3. Ventricular rate 74, OR 150, QRS 82, QTC 439. Disposition Clinical Impression: Near syncope Disposition: HOME SELF-CARE Condition: Stable Instructions (If sedation given, give patient instructions): Near Syncope (ED) Additional Instructions: Follow-up with her primary care physician. Return to emergency department if symptoms worsen. Is patient prescribed a controlled substance at d/c from ED?: No Referrals: Ciro Harman MD [Primary Care Provider] - 1-2 days Time of Disposition: 20:03
[2020-02-09] MEDS ORDERED: SODIUM CHLORIDE 0.9% 1,000 ML IV STA (19:05)
[2020-02-09 19:30] LABS: Basophils # (A) 0.1 k/uL (0-0.2); Basophils % (A) 1 %; Eosinophils # (A) 0.7 k/uL (0-0.7); Eosinophils % (A) 7 %; HCT 38.3 % (34.0-46.0); HGB 12.6 gm/dL (11.4-16.0); Lymphocytes # (A) 3.4 k/uL (1.0-4.8); Lymphocytes % (A) 33 %; MCH 28.5 pg (25.0-35.0); MCV 86.2 fL (80.0-100.0); Mean Platelet Volume 7.5; Monocytes # (A) 0.5 k/uL (0-1.0); Monocytes % (A) 5 %; Neutrophils # (A) 5.4 k/uL (1.3-7.7); Neutrophils % (A) 53 %; Platelet Count 320 k/uL (150-450); RBC 4.44 m/uL (3.80-5.40); WBC 10.3 k/uL (3.8-10.6)
[2020-02-09 19:46] LABS: ALT 14 U/L (4-34); AST 23 U/L (14-36); African American GFR (CKD) >90 (>60 ml/min/1.73 sqM); Albumin 4.1 g/dL (3.5-5.0); Alkaline Phosphatase 80 U/L (38-126); Anion Gap 5 mmol/L; Blood Urea Nitrogen 11 mg/dL (7-17); Calcium 9.6 mg/dL (8.4-10.2); Carbon Dioxide 26 mmol/L (22-30); Chloride 109 mmol/L (98-107); Glucose 109 mg/dL (74-99); Non-African American GFR(CKD) >90 (>60 ml/min/1.73 sqM); Potassium 3.9 mmol/L (3.5-5.1); Sodium 140 mmol/L (137-145); Total Bilirubin 0.4 mg/dL (0.2-1.3); Total Protein 6.6 g/dL (6.3-8.2)
[2020-02-09 20:47] VITALS: BP 126/79; PULSE 71; RESP 19; TEMP 98.4
== END 2020-02-09 20:42 | disposition home or self-care (01) ==
LOC: EC 18:09
DX: R55 Syncope and collapse (principal); R42 Dizziness and giddiness; F17.200 Nicotine dependence, unspecified, uncomplicated; Z79.890 Hormone replacement therapy; Z91.018 Allergy to other foods; Z88.8 Allergy status to other drugs, medicaments and biological substances; Z91.040 Latex allergy status; Z91.010 Allergy to peanuts; Z91.048 Other nonmedicinal substance allergy status
CPT/HCPCS: 36415; 80053; 81025; 85025; 93005; 96360; 99284

== ENCOUNTER 2020-09-12 16:33 | Emergency (ER) | payer OTHER ==
--- NOTE | 2020-09-12 17:33 | ED ---
URI HPI - General Chief Complaint: Upper Respiratory Infection Stated Complaint: Headache,Cough Time Seen by Provider: 09/12/20 17:27 Source: patient Mode of arrival: ambulatory Limitations: no limitations - History of Present Illness Initial Comments: 25-year-old female patient presents to the emergency department today for evaluation of cough, congestion for the last week. States she has had some mild shortness of breath. Denies any sputum production or hemoptysis. Denies any fever or chills. Denies nausea, vomiting, or diarrhea. Denies taking any medication for her symptoms. Rates that she did have a cousin test positive recently would like to be tested for COVID. Patient denies any recent rash, chest pain, abdominal pain, constipation, back pain, numbness, tingling, dizziness, weakness, hematuria, dysuria, urinary urgency, urinary frequency, headache, visual changes, or any other complaints. - Related Data Home Medications Medication Instructions Recorded Confirmed Levothyroxine Sodium [Synthroid] 25 mcg PO DAILY 10/02/16 02/11/17 Pnv,Calcium 72/Iron/Folic Acid 1 tab PO DAILY 10/02/16 02/11/17 [ Plus Tablet] Previous Rx's Medication Instructions Recorded Cephalexin [Keflex] 500 mg PO Q12HR 7 Days cap 01/24/18 Metoclopramide HCl [Reglan] 10 mg PO Q6HR PRN #10 tab 01/24/18 Albuterol Inhaler [Ventolin Hfa 1 puff INHALATION QID #1 puff 01/08/20 Inhaler] Azithromycin [Zithromax Z-pack (6 0 mg PO DIRECTED #6 tab 01/08/20 tabs)] predniSONE [Deltasone] 20 mg PO DIRECTED #12 tab 01/08/20 Albuterol Sulfate [Proair Hfa] 1 - 2 puff INHALATION Q6HR PRN #1 09/12/20 inhaler guaiFENesin-DM 600/30MG [Mucinex 2 each PO Q12HR PRN #20 tab.er.12h 09/12/20 Dm] Allergies Allergy/AdvReac Type Severity Reaction Status Date / Time blueberry Allergy Rash/Hives Verified 09/12/20 16:38 Jama Allergy Rash/Hives Verified 09/12/20 16:38 citalopram [From Celexa] Allergy Unknown Verified 09/12/20 16:38 diphenhydramine HCl Allergy Swelling Verified 09/12/20 16:38 [From Benadryl] iodine Allergy Rash/Hives Verified 09/12/20 16:38 peas Allergy Rash/Hives Verified 09/12/20 16:38 red dye Allergy Rash/Hives Verified 09/12/20 16:38 duloxetine HCl AdvReac Hallucinati Verified 09/12/20 16:38 [From Cymbalta] ons fluoxetine [From Prozac] AdvReac Hallucinati Verified 09/12/20 16:38 ons topiramate [From Topamax] AdvReac Hallucinati Verified 09/12/20 16:38 ons Review of Systems ROS Statement: Those systems with pertinent positive or pertinent negative responses have been documented in the HPI. ROS Other: All systems not noted in ROS Statement are negative. Past Medical History Past Medical History: Seizure Disorder Additional Past Medical History / Comment(s): BACK PAIN History of Any Multi-Drug Resistant Organisms: MRSA Date of last positivie culture/infection: summer 2012 MDRO Source:: Left axillae Past Surgical History: Cholecystectomy Past Psychological History: Anxiety, Depression, PTSD Smoking Status: Current every day smoker Past Alcohol Use History: Occasional Past Drug Use History: None Reported General Exam Limitations: no limitations General appearance: alert, in no apparent distress, other (Physical well- developed, well-nourished adult female patient in no acute distress. Vital signs upon presentation are temperature 97.9F, pulse 98, respirations 22, blood pressure 117/73, pulse ox 99% on room air.) ENT exam: Present: normal exam, normal oropharynx, mucous membranes moist Respiratory exam: Present: normal lung sounds bilaterally. Absent: respiratory distress, wheezes, rales, rhonchi, stridor Cardiovascular Exam: Present: regular rate, normal rhythm, normal heart sounds. Absent: systolic murmur, diastolic murmur, rubs, gallop, clicks GI/Abdominal exam: Present: soft, normal bowel sounds. Absent: distended, tenderness, guarding, rebound, rigid Neurological exam: Present: alert, oriented X3, CN II-XII intact Psychiatric exam: Present: normal affect, normal mood Skin exam: Present: warm, dry, intact, normal color. Absent: rash Course Vital Signs 09/12/20 09/12/20 16:35 17:20 Temperature 97.9 F Pulse Rate 98 Respiratory 22 20 Rate Blood Pressure 117/73 O2 Sat by Pulse 99 Oximetry Medical Decision Making - Medical Decision Making 25-year-old female patient comes in for evaluation of cough, headache, fever. States symptoms started about one week ago. Physical examination is unremarkable. Lungs are clear to auscultation. She has good oxygen saturation. Chest x-ray shows no evidence for infiltrates. She did test positive for COVID-19. She doesn't meet criteria to receive bamlanivimab, I did discuss receiving this medication including risks versus benefits. She declines the medication would like to be discharged home. She is discharged with prescription for Mucinex and Pro Air. She is instructed to follow-up with primary care physician for recheck in 1-2 days. Return parameters discussed in detail. Patient verbalizes understanding and agrees this plan. My attending is Dr. Sifuentes. - Lab Data Lab Results 09/12/20 Range/Units 16:39 Coronavirus (PCR) Detected A (Not Detectd) - Radiology Data Radiology results: image reviewed Disposition Clinical Impression: COVID-19 Disposition: HOME SELF-CARE Condition: Good Instructions (If sedation given, give patient instructions): Coronavirus Disease 2019 (COVID-19) Additional Instructions: Increase fluids. Rest. Take medications as directed. Follow-up through primary care physician for recheck in 1-2 days. Return for any new, worsening, or concerning symptoms. Prescriptions: guaiFENesin-DM 600/30MG [Mucinex Dm] 2 each PO Q12HR PRN #20 tab.er.12h PRN Reason: Cough Albuterol Sulfate [Proair Hfa] 1 - 2 puff INHALATION Q6HR PRN #1 inhaler PRN Reason: Shortness Of Breath Is patient prescribed a controlled substance at d/c from ED?: No Referrals: Ciro Harman MD [Primary Care Provider] - 1-2 days Time of Disposition: 18:37
[2020-09-12] MEDS ORDERED: guaiFENesin-DM 600/30MG 1 EACH TAB.ER.12H PO STA (17:47)
[2020-09-12 19:19] VITALS: BP 116/70; PULSE 92; RESP 16; TEMP 98.1
--- NOTE | 2020-09-12 19:58 | XR ---
EXAMINATION TYPE: XR chest 2V DATE OF EXAM: 09/12/2020 COMPARISON: 01/08/2020 HISTORY: Chest pain TECHNIQUE: Frontal and lateral views of the chest are obtained. FINDINGS: There is no focal air space opacity. No evidence for pneumothorax. No pleural effusion. The cardiac silhouette size is within normal limits. The osseous structures are grossly intact. IMPRESSION: 1. No acute cardiopulmonary process.
== END 2020-09-12 19:18 | disposition home or self-care (01) ==
LOC: EC 16:33
DX: U07.1 COVID-19 (principal); F17.200 Nicotine dependence, unspecified, uncomplicated; F32.9 Major depressive disorder, single episode, unspecified; Z90.49 Acquired absence of other specified parts of digestive tract
CPT/HCPCS: 71046; 87635; 99285

== ENCOUNTER 2020-10-17 23:19 | Emergency (ER) | payer OTHER ==
[2020-10-17 23:28] VITALS: BP 134/86; PULSE 95; RESP 18; TEMP 98.9
[2020-10-17] MEDS ORDERED: IBUPROFEN 400 MG TAB PO STA (23:52)
--- NOTE | 2020-10-17 23:54 | ED ---
Abdominal Pain HPI - General Chief Complaint: Abdominal Pain Stated Complaint: Abd Pain Time Seen by Provider: 10/17/20 23:30 Source: patient Mode of arrival: ambulatory Limitations: no limitations - History of Present Illness MD Complaint: flank pain Onset/Timin -: days(s) Location: diffuse, L flank Radiation: none Migration to: no migration Severity: moderate Quality: sharp Consistency: constant Improves With: nothing Worsens With: nothing Associated Symptoms: nausea - Related Data LMP (females 10-50): last week Home Medications Medication Instructions Recorded Confirmed Levothyroxine Sodium [Synthroid] 25 mcg PO DAILY 10/02/16 02/11/17 Pnv,Calcium 72/Iron/Folic Acid 1 tab PO DAILY 10/02/16 02/11/17 [ Plus Tablet] Previous Rx's Medication Instructions Recorded Cephalexin [Keflex] 500 mg PO Q12HR 7 Days cap 01/24/18 Metoclopramide HCl [Reglan] 10 mg PO Q6HR PRN #10 tab 01/24/18 Albuterol Inhaler [Ventolin Hfa 1 puff INHALATION QID #1 puff 01/08/20 Inhaler] Azithromycin [Zithromax Z-pack (6 0 mg PO DIRECTED #6 tab 01/08/20 tabs)] predniSONE [Deltasone] 20 mg PO DIRECTED #12 tab 01/08/20 Albuterol Sulfate [Proair Hfa] 1 - 2 puff INHALATION Q6HR PRN #1 09/12/20 inhaler guaiFENesin-DM 600/30MG [Mucinex 2 each PO Q12HR PRN #20 tab.er.12h 09/12/20 Dm] Sulfamethox-Tmp 800-160Mg [Bactrim 1 each PO Q12HR #14 tab 10/18/20 Ds] Allergies Allergy/AdvReac Type Severity Reaction Status Date / Time blueberry Allergy Rash/Hives Verified 10/17/20 23:28 Jama Allergy Rash/Hives Verified 10/17/20 23:28 citalopram [From Celexa] Allergy Unknown Verified 10/17/20 23:28 clonazepam [From Klonopin] Allergy Unknown Verified 10/17/20 23:28 diphenhydramine HCl Allergy Swelling Verified 10/17/20 23:28 [From Benadryl] iodine Allergy Rash/Hives Verified 10/17/20 23:28 peas Allergy Rash/Hives Verified 10/17/20 23:28 red dye Allergy Rash/Hives Verified 10/17/20 23:28 duloxetine HCl AdvReac Hallucinati Verified 10/17/20 23:28 [From Cymbalta] ons fluoxetine [From Prozac] AdvReac Hallucinati Verified 10/17/20 23:28 ons topiramate [From Topamax] AdvReac Hallucinati Verified 10/17/20 23:28 ons Review of Systems ROS Statement: Those systems with pertinent positive or pertinent negative responses have been documented in the HPI. ROS Other: All systems not noted in ROS Statement are negative. Constitutional: Denies: fever, chills Respiratory: Denies: cough, dyspnea Cardiovascular: Denies: chest pain, palpitations, edema Gastrointestinal: Reports: as per HPI, abdominal pain, nausea. Denies: vomiting, diarrhea, constipation, melena, hematochezia Genitourinary: Reports: urgency, frequency, abnormal menses. Denies: dysuria, hematuria Musculoskeletal: Denies: back pain Skin: Denies: rash Neurological: Denies: headache, weakness, numbness Past Medical History Past Medical History: Seizure Disorder Additional Past Medical History / Comment(s): BACK PAIN History of Any Multi-Drug Resistant Organisms: MRSA Date of last positivie culture/infection: summer 2012 MDRO Source:: Left axillae Past Surgical History: Cholecystectomy Past Psychological History: Anxiety, Depression, PTSD Smoking Status: Current every day smoker Past Alcohol Use History: Occasional Past Drug Use History: None Reported General Exam Limitations: no limitations General appearance: alert, in no apparent distress Head exam: Present: atraumatic, normocephalic Eye exam: Present: normal appearance. Absent: scleral icterus, conjunctival injection Neck exam: Present: normal inspection Respiratory exam: Present: normal lung sounds bilaterally. Absent: respiratory distress, wheezes, rales, rhonchi, stridor Cardiovascular Exam: Present: regular rate, normal rhythm, normal heart sounds. Absent: systolic murmur, diastolic murmur, rubs, gallop GI/Abdominal exam: Present: soft. Absent: distended, tenderness, guarding, rebound, rigid, mass, pulsatile mass, hernia Extremities exam: Present: normal inspection, normal capillary refill. Absent: pedal edema, calf tenderness Back exam: Present: normal inspection. Absent: CVA tenderness (R), CVA tenderness (L) Neurological exam: Present: alert Skin exam: Present: warm, dry, intact, normal color. Absent: rash Course Vital Signs 10/17/20 23:25 Temperature 98.9 F Pulse Rate 95 Respiratory 18 Rate Blood Pressure 134/86 O2 Sat by Pulse 98 Oximetry Medical Decision Making - Lab Data Lab Results 10/17/20 10/17/20 Range/Units 23:42 23:42 Urine Color Light Yellow Urine Appearance Cloudy H (Clear) Urine pH 6.0 (5.0-8.0) Ur Specific [place] 1.012 (1.001-1.035) Urine Protein Trace H (Negative) Urine Glucose (UA) Negative (Negative) Urine Ketones Negative (Negative) Urine Blood Small H (Negative) Urine Nitrite Negative (Negative) Urine Bilirubin Negative (Negative) Urine Urobilinogen <2.0 (<2.0) mg/dL Ur Leukocyte Esterase Large H (Negative) Urine RBC 11 H (0-5) /hpf Urine WBC >182 H (0-5) /hpf Urine WBC Clumps Few H (None) /hpf Ur Squamous Epith Cells 7 H (0-4) /hpf Urine Bacteria Moderate H (None) /hpf Urine HCG, Qual Not Detected (Not Detectd) Disposition Clinical Impression: Urinary tract infection Disposition: HOME SELF-CARE Condition: Good Instructions (If sedation given, give patient instructions): Urinary Tract Infection in Women (ED) Prescriptions: Sulfamethox-Tmp 800-160Mg [Bactrim Ds] 1 each PO Q12HR #14 tab Is patient prescribed a controlled substance at d/c from ED?: No Referrals: Ciro Harman MD [Primary Care Provider] - 1-2 days
[2020-10-18 00:01] LABS: Appearance,Urine Cloudy (Clear); Bacteria,Urine Moderate /hpf; Bilirubin,Urine Negative (Negative); Blood,Urine Small (Negative); Color,Urine Light Yellow; Glucose,Urine (UA) Negative (Negative); Ketones,Urine Negative (Negative); Leukocyte Esterase,Urine Large (Negative); Nitrite,Urine Negative (Negative); Protein,Urine Trace (Negative); RBC,Urine 11 /hpf (0-5); Specific Gravity,Urine 1.012 (1.001-1.035); Squamous Epithelial Cell,Urine 7 /hpf (0-4); Urobilinogen,Urine <2.0 mg/dL (<2.0); WBC,Urine >182 /hpf (0-5)
[2020-10-18] MEDS ORDERED: SULFAMETHOX-TMP 800-160MG 1 EACH TAB PO STA (00:08)
== END 2020-10-18 00:20 | disposition home or self-care (01) ==
LOC: EC 23:19
DX: N39.0 Urinary tract infection, site not specified (principal); F32.9 Major depressive disorder, single episode, unspecified; F17.200 Nicotine dependence, unspecified, uncomplicated; Z90.49 Acquired absence of other specified parts of digestive tract
CPT/HCPCS: 81001; 81025; 87086; 99284

== ENCOUNTER 2020-12-01 18:14 | Emergency (ER) | payer OTHER ==
[2020-12-01 18:27] VITALS: BP 154/95; PULSE 92; RESP 20; TEMP 98.9
--- NOTE | 2020-12-01 18:50 | ED ---
General Adult HPI - General Chief complaint: Abdominal Pain Stated complaint: abd pain Time Seen by Provider: 12/01/20 18:43 Source: patient Mode of arrival: ambulatory Limitations: no limitations - History of Present Illness Initial comments: Dictation was produced using [employer] dictation software. please excuse any grammatical, word or spelling errors. Chief Complaint: 25-year-old female presents with abdominal pain History of Present Illness:. 5-year-old female presents today with abdominal pain. Patient states that her pain is towards the right suprapubic area. She states that it bounces back between the right and left suprapubic area. Denies any vaginal discharge or vaginal bleeding. Her last pressure cycle was one m onth ago. She is sexually active. She has some mild on and off nausea. No diarrhea. No fevers. The ROS documented in this emergency department record has been reviewed and confirmed by me. Those systems with pertinent positive or negative responses have been documented in the HPI. All other systems are other negative and/or noncontributory. PHYSICAL EXAM: General Impression: Alert and oriented x3, not in acute distress, smiling and jovial at bedside HEENT: Normocephalic atraumatic, extra-ocular movements intact, pupils equal and reactive to light bilaterally, mucous membranes moist. Cardiovascular: Heart regular rate and rhythm Chest: Able to complete full sentences, no retractions, no tachypnea Abdomen: abdomen soft, non-tender, non-distended, no organomegaly negative rebound tenderness, no pain in McBurney's point Musculoskeletal: Pulses present and equal in all extremities, no peripheral edema Motor: no focal deficits noted Neurological: CN II-XII grossly intact, no focal motor or sensory deficits noted Skin: Intact with no visualized rashes Psych: Normal affect and mood ED course: 25-year-old female presents emergency department for intermittent episodes of suprapubic pain that migrates between the right and left side signs upon arrival are within acceptable limits. Patient's well-appearing at bedside she is smiling and having normal conversation. Abdominal examination is soft and benign. She states that she is currently having mild symptoms. Laboratory evaluation obtained. Mild leukocytosis of 13.2 which patient has baseline elevated when compared to previous labs. Rest of labs unremarkable. Urinalysis negative. Urine and beta Quant hCG is negative for . Patient observed in emergency department for approximately 1 hour 30 minutes. She is reevaluated bedside at 7:45 PM 5 be in stable medical condition. Patient refused pelvic exam. 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 - Related Data Home Medications Medication Instructions Recorded Confirmed No Known Home Medications 12/01/20 12/01/20 Allergies Allergy/AdvReac Type Severity Reaction Status Date / Time blueberry Allergy Rash/Hives Verified 12/01/20 19:16 Jama Allergy Rash/Hives Verified 12/01/20 19:16 citalopram [From Celexa] Allergy Unknown Verified 12/01/20 19:16 clonazepam [From Klonopin] Allergy Unknown Verified 12/01/20 19:16 diphenhydramine HCl Allergy Swelling Verified 12/01/20 19:16 [From Benadryl] iodine Allergy Rash/Hives Verified 12/01/20 19:16 peas Allergy Rash/Hives Verified 12/01/20 19:16 red dye Allergy Rash/Hives Verified 12/01/20 19:16 duloxetine HCl AdvReac Hallucinati Verified 12/01/20 19:16 [From Cymbalta] ons fluoxetine [From Prozac] AdvReac Hallucinati Verified 12/01/20 19:16 ons topiramate [From Topamax] AdvReac Hallucinati Verified 12/01/20 19:16 ons Review of Systems ROS Statement: Those systems with pertinent positive or pertinent negative responses have been documented in the HPI. ROS Other: All systems not noted in ROS Statement are negative. Past Medical History Past Medical History: Seizure Disorder Additional Past Medical History / Comment(s): BACK PAIN History of Any Multi-Drug Resistant Organisms: MRSA Date of last positivie culture/infection: summer 2012 MDRO Source:: Left axillae Past Surgical History: Cholecystectomy Past Psychological History: Anxiety, Depression, PTSD Smoking Status: Current every day smoker Past Alcohol Use History: Occasional Past Drug Use History: None Reported General Exam Limitations: no limitations Course Vital Signs 12/01/20 18:25 Temperature 98.9 F Pulse Rate 92 Respiratory 20 Rate Blood Pressure 154/95 O2 Sat by Pulse 100 Oximetry Medical Decision Making - Lab Data Result diagrams: 12/01/20 18:47 12/01/20 18:47 Lab Results 12/01/20 12/01/20 12/01/20 Range/Units 18:36 18:36 18:47 WBC 13.2 H (3.8-10.6) k/uL RBC 4.39 (3.80-5.40) m/uL Hgb 13.1 (11.4-16.0) gm/dL Hct 37.2 (34.0-46.0) % MCV 84.9 (80.0-100.0) fL MCH 29.8 (25.0-35.0) pg MCHC 35.1 (31.0-37.0) g/dL RDW 12.7 (11.5-15.5) % Plt Count 357 (150-450) k/uL MPV 7.6 Neutrophils % 60 % Lymphocytes % 29 % Monocytes % 4 % Eosinophils % 5 % Basophils % 1 % Neutrophils # 8.0 H (1.3-7.7) k/uL Lymphocytes # 3.9 (1.0-4.8) k/uL Monocytes # 0.5 (0-1.0) k/uL Eosinophils # 0.7 (0-0.7) k/uL Basophils # 0.1 (0-0.2) k/uL Sodium (137-145) mmol/L Potassium (3.5-5.1) mmol/L Chloride (98-107) mmol/L Carbon Dioxide (22-30) mmol/L Anion Gap mmol/L BUN (7-17) mg/dL Creatinine (0.52-1.04) mg/dL Est GFR (CKD-EPI)AfAm (>60 ml/min/1.73 sqM) Est GFR (CKD-EPI)NonAf (>60 ml/min/1.73 sqM) Glucose (74-99) mg/dL Calcium (8.4-10.2) mg/dL Total Bilirubin (0.2-1.3) mg/dL AST (14-36) U/L ALT (4-34) U/L Alkaline Phosphatase (38-126) U/L Total Protein (6.3-8.2) g/dL Albumin (3.5-5.0) g/dL Lipase (23-300) U/L HCG, Quant mIU/mL Urine Color Light Yellow Urine Appearance Clear (Clear) Urine pH 5.5 (5.0-8.0) Ur Specific [place] 1.015 (1.001-1.035) Urine Protein Negative (Negative) Urine Glucose (UA) Negative (Negative) Urine Ketones Negative (Negative) Urine Blood Negative (Negative) Urine Nitrite Negative (Negative) Urine Bilirubin Negative (Negative) Urine Urobilinogen <2.0 (<2.0) mg/dL Ur Leukocyte Esterase Small H (Negative) Urine RBC 1 (0-5) /hpf Urine WBC 1 (0-5) /hpf Ur Squamous Epith Cells 2 (0-4) /hpf Urine HCG, Qual Not Detected (Not Detectd) 12/01/20 Range/Units 18:47 WBC (3.8-10.6) k/uL RBC (3.80-5.40) m/uL Hgb (11.4-16.0) gm/dL Hct (34.0-46.0) % MCV (80.0-100.0) fL MCH (25.0-35.0) pg MCHC (31.0-37.0) g/dL RDW (11.5-15.5) % Plt Count (150-450) k/uL MPV Neutrophils % % Lymphocytes % % Monocytes % % Eosinophils % % Basophils % % Neutrophils # (1.3-7.7) k/uL Lymphocytes # (1.0-4.8) k/uL Monocytes # (0-1.0) k/uL Eosinophils # (0-0.7) k/uL Basophils # (0-0.2) k/uL Sodium 139 (137-145) mmol/L Potassium 3.9 (3.5-5.1) mmol/L Chloride 105 (98-107) mmol/L Carbon Dioxide 24 (22-30) mmol/L Anion Gap 10 mmol/L BUN 10 (7-17) mg/dL Creatinine 0.70 (0.52-1.04) mg/dL Est GFR (CKD-EPI)AfAm >90 (>60 ml/min/1.73 sqM) Est GFR (CKD-EPI)NonAf >90 (>60 ml/min/1.73 sqM) Glucose 101 H (74-99) mg/dL Calcium 10.1 (8.4-10.2) mg/dL Total Bilirubin 0.4 (0.2-1.3) mg/dL AST 32 (14-36) U/L ALT 23 (4-34) U/L Alkaline Phosphatase 91 (38-126) U/L Total Protein 7.0 (6.3-8.2) g/dL Albumin 4.4 (3.5-5.0) g/dL Lipase 52 (23-300) U/L HCG, Quant <2.4 mIU/mL Urine Color Urine Appearance (Clear) Urine pH (5.0-8.0) Ur Specific [place] (1.001-1.035) Urine Protein (Negative) Urine Glucose (UA) (Negative) Urine Ketones (Negative) Urine Blood (Negative) Urine Nitrite (Negative) Urine Bilirubin (Negative) Urine Urobilinogen (<2.0) mg/dL Ur Leukocyte Esterase (Negative) Urine RBC (0-5) /hpf Urine WBC (0-5) /hpf Ur Squamous Epith Cells (0-4) /hpf Urine HCG, Qual (Not Detectd) Disposition Clinical Impression: Abdominal pain Disposition: HOME SELF-CARE Condition: Good Instructions (If sedation given, give patient instructions): Abdominal Pain (ED) Is patient prescribed a controlled substance at d/c from ED?: No Referrals: Ciro Harman MD [Primary Care Provider] - 1-2 days
[2020-12-01 19:02] LABS: Appearance,Urine Clear (Clear); Bilirubin,Urine Negative (Negative); Blood,Urine Negative (Negative); Color,Urine Light Yellow; Glucose,Urine (UA) Negative (Negative); Ketones,Urine Negative (Negative); Leukocyte Esterase,Urine Small (Negative); Nitrite,Urine Negative (Negative); PH, Urine 5.5 (5.0-8.0); Protein,Urine Negative (Negative); RBC,Urine 1 /hpf (0-5); Specific Gravity,Urine 1.015 (1.001-1.035); Squamous Epithelial Cell,Urine 2 /hpf (0-4); Urobilinogen,Urine <2.0 mg/dL (<2.0); WBC,Urine 1 /hpf (0-5)
[2020-12-01 19:05] LABS: Basophils # (A) 0.1 k/uL (0-0.2); Basophils % (A) 1 %; Eosinophils # (A) 0.7 k/uL (0-0.7); Eosinophils % (A) 5 %; HCT 37.2 % (34.0-46.0); HGB 13.1 gm/dL (11.4-16.0); Lymphocytes # (A) 3.9 k/uL (1.0-4.8); Lymphocytes % (A) 29 %; MCH 29.8 pg (25.0-35.0); MCHC 35.1 g/dL (31.0-37.0); MCV 84.9 fL (80.0-100.0); Mean Platelet Volume 7.6; Monocytes # (A) 0.5 k/uL (0-1.0); Monocytes % (A) 4 %; Neutrophils % (A) 60 %; Platelet Count 357 k/uL (150-450); RBC 4.39 m/uL (3.80-5.40); RDW 12.7 % (11.5-15.5); WBC 13.2 k/uL (3.8-10.6)
[2020-12-01 19:17] LABS: ALT 23 U/L (4-34); AST 32 U/L (14-36); African American GFR (CKD) >90 (>60 ml/min/1.73 sqM); Albumin 4.4 g/dL (3.5-5.0); Alkaline Phosphatase 91 U/L (38-126); Anion Gap 10 mmol/L; Blood Urea Nitrogen 10 mg/dL (7-17); Calcium 10.1 mg/dL (8.4-10.2); Carbon Dioxide 24 mmol/L (22-30); Chloride 105 mmol/L (98-107); Glucose 101 mg/dL (74-99); Lipase 52 U/L (23-300); Non-African American GFR(CKD) >90 (>60 ml/min/1.73 sqM); Potassium 3.9 mmol/L (3.5-5.1); Sodium 139 mmol/L (137-145); Total Bilirubin 0.4 mg/dL (0.2-1.3)
[2020-12-01 19:34] LABS: HCG,Quantitative Serum <2.4 mIU/mL
== END 2020-12-01 19:58 | disposition home or self-care (01) ==
LOC: EC 18:14
DX: R10.2 Pelvic and perineal pain (principal); R11.0 Nausea; G40.909 Epilepsy, unspecified, not intractable, without status epilepticus; F32.9 Major depressive disorder, single episode, unspecified; F41.9 Anxiety disorder, unspecified; F17.200 Nicotine dependence, unspecified, uncomplicated; Z88.8 Allergy status to other drugs, medicaments and biological substances; Z90.49 Acquired absence of other specified parts of digestive tract
CPT/HCPCS: 36415; 80053; 81001; 81025; 83690; 84702; 85025; 99284

== ENCOUNTER 2020-12-15 20:17 | Emergency (ER) | payer OTHER ==
--- NOTE | 2020-12-15 21:58 | XR ---
EXAMINATION TYPE: XR ankle complete RT DATE OF EXAM: 12/15/2020 COMPARISON: 12/01/2013 HISTORY: Ankle pain TECHNIQUE: 3 views FINDINGS: Ankle mortise is anatomic. I see no fracture nor dislocation. Joint spaces are normal. IMPRESSION: Negative right ankle exam. No fracture. No change.
--- NOTE | 2020-12-15 22:22 | ED ---
Lower Extremity Injury HPI - General Chief Complaint: Extremity Injury, Lower Stated Complaint: R Knee Pain Time Seen by Provider: 12/15/20 21:22 Source: patient Mode of arrival: wheelchair Limitations: no limitations - History of Present Illness Initial Comments: 25-year-old female presents emergency Department with a chief complaint of ankle pain. Patient reports she felt a small bump on the anterior aspect of the right ankle. States when the region is palpated patient feels pain radiating proximally to the knee. She reports full range of motion in the knee or any direct injuries. States her small region of ecchymosis where the small lump is on the skin. She denies any weakness or paresthesias in the leg. Denies any calf pain or tenderness. - Related Data Home Medications Medication Instructions Recorded Confirmed No Known Home Medications 12/01/20 12/01/20 Allergies Allergy/AdvReac Type Severity Reaction Status Date / Time blueberry Allergy Rash/Hives Verified 12/01/20 19:16 Jama Allergy Rash/Hives Verified 12/01/20 19:16 citalopram [From Celexa] Allergy Unknown Verified 12/01/20 19:16 clonazepam [From Klonopin] Allergy Unknown Verified 12/01/20 19:16 diphenhydramine HCl Allergy Swelling Verified 12/01/20 19:16 [From Benadryl] iodine Allergy Rash/Hives Verified 12/01/20 19:16 peas Allergy Rash/Hives Verified 12/01/20 19:16 red dye Allergy Rash/Hives Verified 12/01/20 19:16 duloxetine HCl AdvReac Hallucinati Verified 12/01/20 19:16 [From Cymbalta] ons fluoxetine [From Prozac] AdvReac Hallucinati Verified 12/01/20 19:16 ons topiramate [From Topamax] AdvReac Hallucinati Verified 12/01/20 19:16 ons Review of Systems ROS Statement: Those systems with pertinent positive or pertinent negative responses have been documented in the HPI. ROS Other: All systems not noted in ROS Statement are negative. Past Medical History Past Medical History: Seizure Disorder, Thyroid Disorder Additional Past Medical History / Comment(s): BACK PAIN History of Any Multi-Drug Resistant Organisms: MRSA Date of last positivie culture/infection: summer 2012 MDRO Source:: Left axillae Past Surgical History: Cholecystectomy Past Psychological History: Anxiety, Depression, PTSD Smoking Status: Current every day smoker Past Alcohol Use History: Occasional Past Drug Use History: None Reported General Exam Limitations: no limitations General appearance: alert, in no apparent distress, obese Head exam: Present: atraumatic, normocephalic, normal inspection Eye exam: Present: normal appearance, PERRL, EOMI Pupils: Present: normal accommodation ENT exam: Present: normal exam, normal oropharynx, mucous membranes moist Neck exam: Present: normal inspection, full ROM. Absent: tenderness, l ymphadenopathy Respiratory exam: Present: normal lung sounds bilaterally. Absent: respiratory distress Cardiovascular Exam: Present: regular rate, normal rhythm, normal heart sounds Extremities exam: Present: normal inspection, full ROM, tenderness (Tenderness on the mild swelling noted on the dorsal aspect of the ankle. No pain or tenderness to the knee), normal capillary refill Back exam: Present: normal inspection, full ROM. Absent: tenderness Neurological exam: Present: alert, oriented X3 Psychiatric exam: Present: normal affect, normal mood Skin exam: Present: warm, dry, intact, normal color Course Vital Signs 12/15/20 12/15/20 12/15/20 21:05 22:01 22:43 Temperature 98.3 F 97.6 F Pulse Rate 74 76 72 Respiratory 16 16 18 Rate Blood Pressure 128/79 136/86 130/68 O2 Sat by Pulse 100 100 98 Oximetry Medical Decision Making - Medical Decision Making 25-year-old male presents emergency Department with chief complaint of ankle and knee pain. She is neurovascularly intact. X-rays are negative. PCP follow-up. Case discussed with physician. Disposition Clinical Impression: Left ankle pain Disposition: HOME SELF-CARE Condition: Stable Instructions (If sedation given, give patient instructions): Arthralgia (ED) Additional Instructions: Follow-up with crime scene specialist. Return to emergency department if symptoms worsen. Is patient prescribed a controlled substance at d/c from ED?: No Referrals: Ciro Harman MD [Primary Care Provider] - 1-2 days Time of Disposition: 22:22
[2020-12-15 22:43] VITALS: BP 130/68; PULSE 72; RESP 18; TEMP 97.6
== END 2020-12-15 22:43 | disposition home or self-care (01) ==
LOC: EC 20:17
DX: M25.571 Pain in right ankle and joints of right foot (principal); M25.561 Pain in right knee; G40.909 Epilepsy, unspecified, not intractable, without status epilepticus; F32.9 Major depressive disorder, single episode, unspecified; F41.9 Anxiety disorder, unspecified; F17.200 Nicotine dependence, unspecified, uncomplicated
CPT/HCPCS: 99283

== ENCOUNTER 2021-07-25 10:29 | Emergency (ER) | payer OTHER ==
[2021-07-25 10:44] VITALS: BP 137/85; PULSE 88; RESP 16; TEMP 98.7
--- NOTE | 2021-07-25 10:59 | ED ---
General Adult HPI - General Chief complaint: Dental/Oral Stated complaint: Facial Abscess Time Seen by Provider: 07/25/21 10:55 Source: patient, RN notes reviewed, old records reviewed Mode of arrival: ambulatory Limitations: no limitations - History of Present Illness Initial comments: 26-year-old female presents ambulatory with steady gait, complaints of gingival abscess above tooth #8 for one week. She denies any fevers, no nausea vomiting or diarrhea. She is currently taking penicillin for this abscess prescribed by her doctor. She states that she is 6 weeks and having no complications and has a scheduled appointment at 19 weeks. She recently quit smoking. -: week(s) (1) Location: mouth Radiation: non-radiation Severity scale (1-10): 5 Quality: constant Consistency: constant Improves with: none Worsens with: none, other (palpation) Associated Symptoms: denies other symptoms Treatments Prior to Arrival: other (penicillin) - Related Data Home Medications Medication Instructions Recorded Confirmed Levothyroxine Sodium [Synthroid] 25 mcg PO DAILY 07/25/21 07/25/21 Mgr-Isdu-Epozi Acid 1 cap PO DAILY 07/25/21 07/25/21 [-U Capsule (formulary)] Rimegepant Sulfate [Nurtec Odt] 75 mg PO DAILY PRN 07/25/21 07/25/21 Allergies Allergy/AdvReac Type Severity Reaction Status Date / Time blueberry Allergy Rash/Hives Verified 07/25/21 11:38 Jama Allergy Rash/Hives Verified 07/25/21 11:38 citalopram [From Celexa] Allergy Can not Verified 07/25/21 11:38 remember diphenhydramine HCl Allergy Anaphylaxis Verified 07/25/21 11:38 [From Benadryl] iodine Allergy Rash/Hives Verified 07/25/21 11:38 peas Allergy Rash/Hives Verified 07/25/21 11:38 red dye Allergy Rash/Hives Verified 07/25/21 11:38 clonazepam [From Klonopin] AdvReac Seizures Verified 07/25/21 11:38 duloxetine HCl AdvReac Hallucinati Verified 07/25/21 11:38 [From Cymbalta] ons fluoxetine [From Prozac] AdvReac Hallucinati Verified 07/25/21 11:38 ons topiramate [From Topamax] AdvReac Hallucinati Verified 07/25/21 11:38 ons Review of Systems ROS Statement: Those systems with pertinent positive or pertinent negative responses have been documented in the HPI. ROS Other: All systems not noted in ROS Statement are negative. Past Medical History Past Medical History: Seizure Disorder, Thyroid Disorder Additional Past Medical History / Comment(s): BACK PAIN History of Any Multi-Drug Resistant Organisms: MRSA Date of last positivie culture/infection: summer 2012 MDRO Source:: Left axillae Past Surgical History: Cholecystectomy Past Psychological History: Anxiety, Depression, PTSD Smoking Status: Current every day smoker Past Alcohol Use History: Occasional Past Drug Use History: None Reported General Exam Limitations: no limitations General appearance: alert, in no apparent distress Head exam: Present: atraumatic, normocephalic, normal inspection Expanded Mouth exam: Present: tongue elevation. Absent: drooling, trismus, muffled voice Teeth exam: Present: dental caries, other (gingival abscess above #8) Neck exam: Present: normal inspection Respiratory exam: Present: normal lung sounds bilaterally Cardiovascular Exam: Present: regular rate Neurological exam: Present: alert, oriented X3, normal gait Psychiatric exam: Present: normal affect, normal mood Skin exam: Present: warm, dry, normal color. Absent: cyanosis, diaphoretic Course Vital Signs 07/25/21 10:41 Temperature 98.7 F Pulse Rate 88 Respiratory 16 Rate Blood Pressure 137/85 O2 Sat by Pulse 100 Oximetry Medical Decision Making - Medical Decision Making 26-year-old female presents with gingival abscess above tooth #8 for one week. No fevers or systemic symptoms. She is currently taking penicillin prescribed by her primary care doctor. Abscess was drained with an 11 blade scalpel. She was directed to continue taking penicillin as prescribed and follow-up with her dentist. Rinse mouth with Listerine twice a day. Case discussed with Dr. Pedersen Disposition Clinical Impression: Gingival abscess Disposition: HOME SELF-CARE Condition: Good Instructions (If sedation given, give patient instructions): Dental Abscess (ED) Additional Instructions: Continue taking your antibiotics as prescribed. Rinse with Listerine twice a day. Follow-up with your dentist within the next week. Return to the emergency room with any new or concerning symptoms. Is patient prescribed a controlled substance at d/c from ED?: No Referrals: Ciro Harman MD [Primary Care Provider] - 1-2 days Time of Disposition: 11:20
== END 2021-07-25 12:04 | disposition home or self-care (01) ==
LOC: EC 10:29
DX: O99.830 Other infection carrier state complicating pregnancy (principal); K04.7 Periapical abscess without sinus; E07.9 Disorder of thyroid, unspecified; F41.9 Anxiety disorder, unspecified; F32.A Depression, unspecified; F43.10 Post-traumatic stress disorder, unspecified; Z3A.01 Less than 8 weeks gestation of pregnancy; Z87.891 Personal history of nicotine dependence; Z88.1 Allergy status to other antibiotic agents; Z90.49 Acquired absence of other specified parts of digestive tract
CPT/HCPCS: 41800; 99282

== ENCOUNTER → 2021-08-03 | Outpatient (CLI) | payer OTHER ==
[2021-08-03 15:12] LABS: Appearance,Urine Cloudy (Clear); Bilirubin,Urine Negative (Negative); Blood,Urine Negative (Negative); Color,Urine Yellow; Glucose,Urine (UA) Negative (Negative); Ketones,Urine Negative (Negative); Leukocyte Esterase,Urine Moderate (Negative); Nitrite,Urine Negative (Negative); Protein,Urine Negative (Negative); RBC,Urine 2 /hpf (0-5); Specific Gravity,Urine 1.022 (1.001-1.035); Squamous Epithelial Cell,Urine 5 /hpf (0-4); Urobilinogen,Urine <2.0 mg/dL (<2.0); WBC,Urine 11 /hpf (0-5)
[2021-08-03 18:13] LABS: Basophils # (A) 0.07 X 10*3/uL (0.00-0.10); Basophils % (A) 0.6 %; Eosinophils # (A) 0.41 X 10*3/uL (0.04-0.35); Eosinophils % (A) 3.6 %; HCT 38.3 % (37.2-46.3); HGB 12.4 g/dL (12.0-15.0); Immature Grans, Automated 0.2 %; Lymphocytes # (A) 3.16 X 10*3/uL (0.90-5.00); Lymphocytes % (A) 27.6 %; MCH 28.5 pg (27.0-32.0); MCHC 32.4 g/dL (32.0-37.0); Mean Platelet Volume 10.8 fL (9.5-12.2); Monocytes # (A) 0.78 X 10*3/uL (0.20-1.00); Monocytes % (A) 6.8 %; NRBC Per 100 WBC 0 /100 WBCS (0.0-0.0); Neutrophils # (A) 6.99 X 10*3/uL (1.80-7.70); Neutrophils % (A) 61.2 %; Platelet Count 455 X 10*3/uL (140-440); RBC 4.35 X 10*6/uL (4.10-5.20); RDW 12.1 % (11.5-14.5); WBC 11.43 X 10*3/uL (4.50-10.00)
[2021-08-03 18:59] LABS: Hepatitis B Surface Antigen Nonreactive (Nonreactive); Hepatitis C IgG Antibody Nonreactive (Nonreactive)
[2021-08-03 22:27] LABS: HIV 2 AB Non-Reactive (Non-Reactive); HIV AB P24 Non-Reactive (Non-Reactive); HIV P24 AG Non-Reactive (Non-Reactive)
[2021-08-04 06:46] LABS: Urine Alcohol Negative (Negative); Urine Barbiturate Negative (Negative); Urine Cocaine Negative (Negative); Urine Methadone Negative (Negative); Urine Opiates Negative (Negative); Urine Phencyclidine Negative (Negative)
== END | disposition home or self-care (01) ==
LOC: LABWHC1 13:20
PROVIDERS: ATTEND Midwife
DX: O23.41 Unspecified infection of urinary tract in pregnancy, first trimester (principal); O99.280 Endocrine, nutritional and metabolic diseases complicating pregnancy, unspecified trimester; Z13.1 Encounter for screening for diabetes mellitus; Z13.21 Encounter for screening for nutritional disorder; Z03.89 Encounter for observation for other suspected diseases and conditions ruled out; Z11.4 Encounter for screening for human immunodeficiency virus [HIV]; Z11.59 Encounter for screening for other viral diseases; Z13.228 Encounter for screening for other metabolic disorders; E55.9 Vitamin D deficiency, unspecified; Z3A.00 Weeks of gestation of pregnancy not specified
CPT/HCPCS: 36415; 80306; 81001; 82306; 82947; 84702; 85025; 86762; 86780; 86803; 86850; 86900; 86901; 87086; 87340; 87390

== ENCOUNTER 2021-08-09 17:53 | Emergency (ER) | payer OTHER ==
[2021-08-09 19:28] VITALS: TEMP 98.1
[2021-08-09 20:09] LABS: Appearance,Urine Clear (Clear); Bilirubin,Urine Negative (Negative); Blood,Urine Negative (Negative); Color,Urine Yellow; Glucose,Urine (UA) Negative (Negative); Ketones,Urine Negative (Negative); Leukocyte Esterase,Urine Negative (Negative); Nitrite,Urine Negative (Negative); Protein,Urine Negative (Negative); Specific Gravity,Urine 1.021 (1.001-1.035); Urobilinogen,Urine <2.0 mg/dL (<2.0)
[2021-08-09] MEDS ORDERED: SODIUM CHLORIDE 0.9% 500 ML 500 ML IV ONE (22:26)
[2021-08-09] MEDS ORDERED: ACETAMINOPHEN TAB 325 MG TAB PO STA (22:28)
[2021-08-09] MEDS ORDERED: ONDANSETRON 4 MG/2 ML VIAL IVP STA (22:32)
[2021-08-09 22:36] LABS: Basophils # (A) 0.1 k/uL (0-0.2); Basophils % (A) 1 %; Eosinophils # (A) 0.6 k/uL (0-0.7); Eosinophils % (A) 4 %; HCT 37.6 % (34.0-46.0); HGB 12.8 gm/dL (11.4-16.0); Lymphocytes # (A) 4.1 k/uL (1.0-4.8); Lymphocytes % (A) 28 %; MCH 30.2 pg (25.0-35.0); MCHC 34.1 g/dL (31.0-37.0); MCV 88.6 fL (80.0-100.0); Mean Platelet Volume 8.1; Monocytes # (A) 0.7 k/uL (0-1.0); Monocytes % (A) 5 %; Neutrophils # (A) 8.9 k/uL (1.3-7.7); Neutrophils % (A) 61 %; Platelet Count 362 k/uL (150-450); RBC 4.24 m/uL (3.80-5.40); WBC 14.7 k/uL (3.8-10.6)
[2021-08-09 22:46] LABS: ALT 22 U/L (4-34); African American GFR (CKD) >90 (>60 ml/min/1.73 sqM); Albumin 4.4 g/dL (3.5-5.0); Anion Gap 10 mmol/L; Blood Urea Nitrogen 12 mg/dL (7-17); Calcium 9.5 mg/dL (8.4-10.2); Carbon Dioxide 23 mmol/L (22-30); Chloride 102 mmol/L (98-107); Glucose 88 mg/dL (74-99); Non-African American GFR(CKD) >90 (>60 ml/min/1.73 sqM); Sodium 135 mmol/L (137-145); Total Bilirubin 0.6 mg/dL (0.2-1.3); Total Protein 7.5 g/dL (6.3-8.2)
[2021-08-09 22:48] LABS: AST 30 U/L (14-36); Alkaline Phosphatase 80 U/L (38-126); Potassium 4.4 mmol/L (3.5-5.1)
--- NOTE | 2021-08-09 23:34 | US ---
EXAMINATION TYPE: Transabdominal DATE OF EXAM: 08/09/2021 11:19 PM COMPARISON: NONE CLINICAL HISTORY: lower abdominal pain, 8 week preg. Patient states she would like to "make sure she is still ". Patient denies any cramping or bleeding. EXAM PERFORMED: Transabdominal (TA) EXAM MEASUREMENTS: GESTATIONAL AGE / DATING Physician Established: Not yet established Dates by LMP: LMP unknown Dates by First Scan: No previous this is first scan Dates by Current Scan for: ( 6 weeks/5 days) EDC: 03/30/22 MATERNAL ANATOMY Uterus: 9.4 x 5.1 x 6.0 cm Right Ovary: 3.3 x 1.6 x 2.2 cm Left Ovary: 2.5 x 1.6 x 1.9 cm Post CDS / Adnexa: wnl Presence of free fluid: no Presence of corpus luteal cyst: no Presence of subchorionic bleed: no GESTATION / SURVEY CRL: 7.68 mm (6 weeks/5 days) MSD: wnl Yolk Sac (normal less than 6mm): 0.28 cm Heart Rate: 161 bpm Rhythm: Normal IUP: Viable IUP Date of LMP: unknown Beta HcG (if available): Not available at this time IMPRESSION: The ultrasound gestational age is 6 weeks and 5 days. No complicating process seen.
--- NOTE | 2021-08-09 23:54 | ED ---
General Adult HPI - General Chief complaint: Abdominal Pain Stated complaint: 8wks preg/cramping Time Seen by Provider: 08/09/21 21:37 Source: patient, RN notes reviewed Mode of arrival: ambulatory Limitations: no limitations - History of Present Illness Initial comments: 26-year-old female presents to emergency department for evaluation of lower abdominal discomfort, onset this afternoon. Patient states she is 8 weeks and miscarried during her previous therefore is particularly concerned. States pain worsens with activity and describes it as a stretching sensation. LMP [id number]. She is . Reports nausea that waxes and wanes; states today is better. Denies any vaginal bleeding, discharge, or leaking of fluids. No fever, chills, headache, chest pain, difficulty breathing, cough, congestion, vomiting, dysuria, or hematuria. - Related Data Home Medications Medication Instructions Recorded Confirmed Levothyroxine Sodium [Synthroid] 25 mcg PO DAILY 07/25/21 07/25/21 Pje-Prmz-Xvgcp Acid 1 cap PO DAILY 07/25/21 07/25/21 [-U Capsule (formulary)] Rimegepant Sulfate [Nurtec Odt] 75 mg PO DAILY PRN 07/25/21 07/25/21 Allergies Allergy/AdvReac Type Severity Reaction Status Date / Time blueberry Allergy Rash/Hives Verified 08/09/21 19:28 Jama Allergy Rash/Hives Verified 08/09/21 19:28 citalopram [From Celexa] Allergy Can not Verified 08/09/21 19:28 remember diphenhydramine HCl Allergy Anaphylaxis Verified 08/09/21 19:28 [From Benadryl] iodine Allergy Rash/Hives Verified 08/09/21 19:28 peas Allergy Rash/Hives Verified 08/09/21 19:28 red dye Allergy Rash/Hives Verified 08/09/21 19:28 clonazepam [From Klonopin] AdvReac Seizures Verified 08/09/21 19:28 duloxetine HCl AdvReac Hallucinati Verified 08/09/21 19:28 [From Cymbalta] ons fluoxetine [From Prozac] AdvReac Hallucinati Verified 08/09/21 19:28 ons topiramate [From Topamax] AdvReac Hallucinati Verified 08/09/21 19:28 ons Review of Systems ROS Statement: Those systems with pertinent positive or pertinent negative responses have been documented in the HPI. ROS Other: All systems not noted in ROS Statement are negative. Past Medical History Past Medical History: Seizure Disorder, Thyroid Disorder Additional Past Medical History / Comment(s): BACK PAIN History of Any Multi-Drug Resistant Organisms: MRSA Date of last positivie culture/infection: summer 2012 MDRO Source:: Left axillae Past Surgical History: Cholecystectomy Past Psychological History: Anxiety, Depression, PTSD Smoking Status: Current every day smoker Past Alcohol Use History: Occasional Past Drug Use History: None Reported General Exam Limitations: no limitations (Well-developed, well-nourished female in no acute distress. Initial temperature 98.1, pulse 85, respirations 20, blood pressure 132/77, pulse ox 100% on room air.) General appearance: alert, in no apparent distress ENT exam: Present: normal exam, normal oropharynx, mucous membranes moist Respiratory exam: Present: normal lung sounds bilaterally. Absent: respiratory distress, wheezes, rales, rhonchi, stridor Cardiovascular Exam: Present: regular rate, normal rhythm, normal heart sounds. Absent: systolic murmur, diastolic murmur, rubs, gallop, clicks GI/Abdominal exam: Present: soft, normal bowel sounds. Absent: distended, tenderness, guarding, rebound, rigid Back exam: Absent: CVA tenderness (R), CVA tenderness (L) Neurological exam: Present: alert, oriented X3, CN II-XII intact Psychiatric exam: Present: normal affect, normal mood Skin exam: Present: warm, dry, intact, normal color. Absent: rash Course Vital Signs 08/09/21 08/10/21 19:25 01:01 Temperature 98.1 F Pulse Rate 85 71 Respiratory 20 18 Rate Blood Pressure 132/77 116/73 O2 Sat by Pulse 100 100 Oximetry - Reevaluation(s) Reevaluation #1: 08/09/21 23:30 Upon reevaluation, patient is smiling, resting comfortably, states she feels significantly improved. She was happy to see the baby's heartbeat on ultrasound. States her nausea has resolved and her lower abdominal discomfort is Minimal. Medical Decision Making - Medical Decision Making 26-year-old female, , [place] [id number], presents to the emergency department for evaluation of lower abdominal discomfort. Upon exam, patient is well-appearing though expresses some anxiety. States she miscarried at 8 weeks with her previous and became concerned when she began experiencing lower abdominal discomfort during the day today. She describes the pain as a very low pain/pressure sensation that extends on either side of her abdomen. Patient denied experiencing any bleeding, cramping, or leaking of fluid. Pain was not reproducible upon palpation. She is tolerating oral intake without difficulty. Laboratory studies were obtained and are unremarkable. Leukocytosis present as expected . She was given Tylenol for her discomfort and Zofran for her mild nausea. Ultrasound was obtained showing viable intrauterine with heart rate 161. Patient was very reassured by these findings and reports significant improvement. She will be discharged home for follow-up with her NARCOTICS DETECTIVE as scheduled next week. Return parameters were discussed in detail. Patient verbalizes understanding and agrees with this plan. Attending: Ying. - Lab Data Result diagrams: 08/09/21 22:27 08/09/21 22:27 Lab Results 08/09/21 08/09/21 08/09/21 Range/Units 19:42 22:25 22:27 WBC 14.7 H (3.8-10.6) k/uL RBC 4.24 (3.80-5.40) m/uL Hgb 12.8 (11.4-16.0) gm/dL Hct 37.6 (34.0-46.0) % MCV 88.6 (80.0-100.0) fL MCH 30.2 (25.0-35.0) pg MCHC 34.1 (31.0-37.0) g/dL RDW 12.0 (11.5-15.5) % Plt Count 362 (150-450) k/uL MPV 8.1 Neutrophils % 61 % Lymphocytes % 28 % Monocytes % 5 % Eosinophils % 4 % Basophils % 1 % Neutrophils # 8.9 H (1.3-7.7) k/uL Lymphocytes # 4.1 (1.0-4.8) k/uL Monocytes # 0.7 (0-1.0) k/uL Eosinophils # 0.6 (0-0.7) k/uL Basophils # 0.1 (0-0.2) k/uL Sodium (137-145) mmol/L Potassium (3.5-5.1) mmol/L Chloride (98-107) mmol/L Carbon Dioxide (22-30) mmol/L Anion Gap mmol/L BUN (7-17) mg/dL Creatinine (0.52-1.04) mg/dL Est GFR (CKD-EPI)AfAm (>60 ml/min/1.73 sqM) Est GFR (CKD-EPI)NonAf (>60 ml/min/1.73 sqM) Glucose (74-99) mg/dL Calcium (8.4-10.2) mg/dL Total Bilirubin (0.2-1.3) mg/dL AST (14-36) U/L ALT (4-34) U/L Alkaline Phosphatase (38-126) U/L Total Protein (6.3-8.2) g/dL Albumin (3.5-5.0) g/dL HCG, Quant mIU/mL Urine Color Yellow Urine Appearance Clear (Clear) Urine pH 6.0 (5.0-8.0) Ur Specific [place] 1.021 (1.001-1.035) Urine Protein Negative (Negative) Urine Glucose (UA) Negative (Negative) Urine Ketones Negative (Negative) Urine Blood Negative (Negative) Urine Nitrite Negative (Negative) Urine Bilirubin Negative (Negative) Urine Urobilinogen <2.0 (<2.0) mg/dL Ur Leukocyte Esterase Negative (Negative) Blood Type A Positive Blood Type Recheck A Pos Bld Type Recheck Status No Antibody Screen NEGATIVE Spec Expiration Date 08/12/2021 - 232608/09/21 Range/Units 22:27 WBC (3.8-10.6) k/uL RBC (3.80-5.40) m/uL Hgb (11.4-16.0) gm/dL Hct (34.0-46.0) % MCV (80.0-100.0) fL MCH (25.0-35.0) pg MCHC (31.0-37.0) g/dL RDW (11.5-15.5) % Plt Count (150-450) k/uL MPV Neutrophils % % Lymphocytes % % Monocytes % % Eosinophils % % Basophils % % Neutrophils # (1.3-7.7) k/uL Lymphocytes # (1.0-4.8) k/uL Monocytes # (0-1.0) k/uL Eosinophils # (0-0.7) k/uL Basophils # (0-0.2) k/uL Sodium 135 L (137-145) mmol/L Potassium 4.4 (3.5-5.1) mmol/L Chloride 102 (98-107) mmol/L Carbon Dioxide 23 (22-30) mmol/L Anion Gap 10 mmol/L BUN 12 (7-17) mg/dL Creatinine 0.75 (0.52-1.04) mg/dL Est GFR (CKD-EPI)AfAm >90 (>60 ml/min/1.73 sqM) Est GFR (CKD-EPI)NonAf >90 (>60 ml/min/1.73 sqM) Glucose 88 (74-99) mg/dL Calcium 9.5 (8.4-10.2) mg/dL Total Bilirubin 0.6 (0.2-1.3) mg/dL AST 30 (14-36) U/L ALT 22 (4-34) U/L Alkaline Phosphatase 80 (38-126) U/L Total Protein 7.5 (6.3-8.2) g/dL Albumin 4.4 (3.5-5.0) g/dL HCG, Quant 17483.9 mIU/mL Urine Color Urine Appearance (Clear) Urine pH (5.0-8.0) Ur Specific [place] (1.001-1.035) Urine Protein (Negative) Urine Glucose (UA) (Negative) Urine Ketones (Negative) Urine Blood (Negative) Urine Nitrite (Negative) Urine Bilirubin (Negative) Urine Urobilinogen (<2.0) mg/dL Ur Leukocyte Esterase (Negative) Blood Type Blood Type Recheck Bld Type Recheck Status Antibody Screen Spec Expiration Date - Radiology Data Radiology results: report reviewed Transabdominal ultrasound was obtained. Report was reviewed in its entirety. Impression per Dr. Tse is the ultrasound gestational age is 6 weeks and 5 days. No complicating process seen. Disposition Clinical Impression: Pain of round ligament during Disposition: HOME SELF-CARE Condition: Stable Instructions (If sedation given, give patient instructions): Abdominal Pain in (ED) Additional Instructions: Follow-up with your NARCOTICS DETECTIVE as scheduled. Rest if pain occurs. Increase your intake of fluids. Return to the emergency department with any new, worsening, or concerning symptoms. Is patient prescribed a controlled substance at d/c from ED?: No Referrals: Ciro Harman MD [Primary Care Provider] - 1-2 days Ash Pena DO [REFERRING] - 1-2 days Time of Disposition: 23:54
[2021-08-10 00:05] LABS: HCG,Quantitative Serum 71882.9 mIU/mL
[2021-08-10 01:02] VITALS: BP 116/73; PULSE 71; RESP 18
== END 2021-08-10 | disposition home or self-care (01) ==
LOC: EC 17:53
DX: O26.891 Other specified pregnancy related conditions, first trimester (principal); R10.30 Lower abdominal pain, unspecified; O99.331 Smoking (tobacco) complicating pregnancy, first trimester; F17.200 Nicotine dependence, unspecified, uncomplicated; Z3A.01 Less than 8 weeks gestation of pregnancy
CPT/HCPCS: 36415; 86900; 86901; 80053; 85025; 86850; 81003; 84702; 76801; 99284; 96374; 96361; J2405

== ENCOUNTER 2021-09-06 08:29 | Emergency (ER) | payer OTHER ==
[2021-09-06 08:34] VITALS: RESP 18; TEMP 97.9
--- NOTE | 2021-09-06 09:40 | XR ---
EXAMINATION TYPE: XR chest 2V DATE OF EXAM: 09/06/2021 COMPARISON: NONE TECHNIQUE: PA and lateral views submitted. HISTORY: Cough and fever FINDINGS: The lungs are clear and there is no pneumothorax, pleural effusion, or focal pneumonia. Heart size normal. No overt failure. Surgical clip in the abdomen. IMPRESSION: 1. No acute process.
--- NOTE | 2021-09-06 09:50 | ED ---
General Adult HPI - General Chief complaint: Upper Respiratory Infection Stated complaint: Upper Resp Time Seen by Provider: 09/06/21 08:35 Source: patient, family, RN notes reviewed Mode of arrival: ambulatory Limitations: no limitations - History of Present Illness Initial comments: 26-year-old female presents emergency Department chief complaint of cough and cold like symptoms. Patient states she's been sick for several days. Patient states she recent illness. Patient states she's had a fever 103, cough congestion sore throat. Patient states she started getting worse with no improvement. Patient denies any sick contacts. - Related Data Home Medications Medication Instructions Recorded Confirmed Levothyroxine Sodium [Synthroid] 25 mcg PO DAILY 07/25/21 07/25/21 Lks-Wtwu-Nmvuf Acid 1 cap PO DAILY 07/25/21 07/25/21 [-U Capsule (formulary)] Rimegepant Sulfate [Nurtec Odt] 75 mg PO DAILY PRN 07/25/21 07/25/21 Previous Rx's Medication Instructions Recorded Amoxicillin/Potassium Clav 1 tab PO Q12HR #20 tab 09/06/21 [Augmentin 875-125 Tablet] Allergies Allergy/AdvReac Type Severity Reaction Status Date / Time blueberry Allergy Rash/Hives Verified 09/06/21 08:34 Jama Allergy Rash/Hives Verified 09/06/21 08:34 citalopram [From Celexa] Allergy Can not Verified 09/06/21 08:34 remember diphenhydramine HCl Allergy Anaphylaxis Verified 09/06/21 08:34 [From Benadryl] iodine Allergy Rash/Hives Verified 09/06/21 08:34 peas Allergy Rash/Hives Verified 09/06/21 08:34 red dye Allergy Rash/Hives Verified 09/06/21 08:34 clonazepam [From Klonopin] AdvReac Seizures Verified 09/06/21 08:34 duloxetine HCl AdvReac Hallucinati Verified 09/06/21 08:34 [From Cymbalta] ons fluoxetine [From Prozac] AdvReac Hallucinati Verified 09/06/21 08:34 ons topiramate [From Topamax] AdvReac Hallucinati Verified 09/06/21 08:34 ons Review of Systems ROS Statement: Those systems with pertinent positive or pertinent negative responses have been documented in the HPI. ROS Other: All systems not noted in ROS Statement are negative. Past Medical History Past Medical History: Seizure Disorder, Thyroid Disorder Additional Past Medical History / Comment(s): BACK PAIN History of Any Multi-Drug Resistant Organisms: MRSA Date of last positivie culture/infection: summer 2012 MDRO Source:: Left axillae Past Surgical History: Cholecystectomy Past Psychological History: Anxiety, Depression, PTSD Smoking Status: Current every day smoker Past Alcohol Use History: Occasional Past Drug Use History: None Reported General Exam Limitations: no limitations General appearance: alert, in no apparent distress Head exam: Present: atraumatic, normocephalic, normal inspection Eye exam: Present: normal appearance, PERRL, EOMI. Absent: scleral icterus, conjunctival injection, periorbital swelling ENT exam: Present: normal exam, normal oropharynx, mucous membranes moist Neck exam: Present: normal inspection, full ROM. Absent: tenderness, meningismus, lymphadenopathy Respiratory exam: Present: normal lung sounds bilaterally. Absent: respiratory distress, wheezes, rales, rhonchi, stridor Cardiovascular Exam: Present: regular rate, normal rhythm, normal heart sounds. Absent: systolic murmur, diastolic murmur, rubs, gallop, clicks GI/Abdominal exam: Present: soft, normal bowel sounds. Absent: distended, tenderness, guarding, rebound, rigid Course Vital Signs 09/06/21 08:31 Temperature 97.9 F Pulse Rate 84 Respiratory 18 Rate Blood Pressure 131/78 O2 Sat by Pulse 97 Oximetry Medical Decision Making - Medical Decision Making Patient's x-ray, influenza and covid 19 is negative. Patient has upper respiratory infection. Patient we discharged stable condition return parameters were discussed. - Lab Data Lab Results 09/06/21 09/06/21 Range/Units 08:49 08:49 Coronavirus (PCR) Not Detected (Not Detectd) Influenza Type A RNA Not Detected (Not Detectd) Influenza Type B (PCR) Not Detected (Not Detectd) Disposition Clinical Impression: Acute upper respiratory infection Disposition: HOME SELF-CARE Condition: Stable Instructions (If sedation given, give patient instructions): Upper Respiratory Infection (ED) Additional Instructions: Please return to the Emergency Department if symptoms worsen or any other concerns. Prescriptions: Amoxicillin/Potassium Clav [Augmentin 875-125 Tablet] 1 tab PO Q12HR #20 tab Is patient prescribed a controlled substance at d/c from ED?: No Referrals: Ciro Harman MD [Primary Care Provider] - 1-2 days Time of Disposition: 09:49
[2021-09-06 10:07] VITALS: BP 173/62; PULSE 85
== END 2021-09-06 10:08 | disposition home or self-care (01) ==
LOC: EC 08:29
DX: Z91.018 Allergy to other foods (principal); J06.9 Acute upper respiratory infection, unspecified; E07.9 Disorder of thyroid, unspecified; Z79.899 Other long term (current) drug therapy; F17.200 Nicotine dependence, unspecified, uncomplicated; Z20.822 Contact with and (suspected) exposure to COVID-19; Z88.8 Allergy status to other drugs, medicaments and biological substances; Z91.041 Radiographic dye allergy status; Z88.1 Allergy status to other antibiotic agents
CPT/HCPCS: 71046; 87502; 87635; 99284

== ENCOUNTER 2021-11-23 19:38 | Outpatient (CLI) | payer OTHER ==
[2021-11-23 20:22] LABS: Appearance,Urine Cloudy (Clear); Bacteria,Urine Rare /hpf; Bilirubin,Urine Negative (Negative); Blood,Urine Negative (Negative); Calcium Oxalate Crystals,Urine Occasional /hpf; Color,Urine Light Yellow; Glucose,Urine (UA) Negative (Negative); Ketones,Urine Negative (Negative); Leukocyte Esterase,Urine Small (Negative); Mucus,Urine Rare /hpf; Nitrite,Urine Negative (Negative); PH, Urine 6.5 (5.0-8.0); Protein,Urine Negative (Negative); RBC,Urine 1 /hpf (0-5); Squamous Epithelial Cell,Urine 6 /hpf (0-4); Urobilinogen,Urine <2.0 mg/dL (<2.0); WBC,Urine 3 /hpf (0-5)
[2021-11-23 21:12] VITALS: BP 125/59; PULSE 88; RESP 17; TEMP 97.3
--- NOTE | 2021-11-24 12:13 | P.MSEPDOC ---
Presenting Problems - Arrival Data Date of Arrival on Unit: 11/23/21 Time of Arrival on Unit: 19:38 Mode of Transport: Ambulatory - Complaint OB-Reason for Admission/Chief Complaint: Pain Comment: pt presents to triage for abd pain and cramping with back pain starting at 0930 this am Medical History - Information : 5 Para: 3 Term: 3 : 0 Abortions: Spontaneous or Elective: 1 Number of Living Children: 3 - Gestational Age Gestational Age by SHAILESH (wks/days): 22 Weeks and 2 Days - History Complications: Smoker Review of Systems - Review of Systems Constitutional: No problems Breast: No problems ENT: No problems Cardiovascular: No problems Respiratory: No problems Gastrointestinal: No problems Genitourinary: No problems Musculoskeletal: No problems Neurological: No problems Skin: No problems Vital Signs - Temperature Temperature: 97.3 F Temperature Source: Temporal Artery Scan - Pulse Right Brachial Pulse Rate: 88 Pulse Assessment Method: Automatic Cuff - Respirations Respiratory Rate: 17 Oxygen Delivery Method: Room Air - Blood Pressure Right Arm Blood Pressure: 125/59 Blood Pressure Mean: 81 Blood Pressure Source: Automatic Cuff Medical Screen Scoring - Cervical Exam Dilation (cm): 0 Membranes: Intact - Uterine Contractions Frequency From (mins): 0 - Assessment - Baby A Baseline FHR: 140 Heart Rate - NICHD Category: Category I (Normal) Physician Notification - Physician Notified Physician Notified Date: 11/23/21 Physician Notified Time: 20:19 Physician: Paty Bah Order Received: Yes - Notification Comment Comment: pt presents to triage for abd pain and cramping with back pain starting at 0930 this am, UA obtained, cervix closed/thick/high, pt discharged home with instructions to increase oral fluids, and use belly band as needed, follow up in office at next scheduled appt Maternal Triage Index - Maternal Triage Index Presenting for scheduled procedure w/no complaint: No - Stat/Priority 1 Stat Priority 1: No - Urgent/Priority 2 Urgent Priority 2: No - Prompt/Priority 3 Prompt Priority 3: Yes Criteria Met for Priority 3: pt presents to triage for abd pain and cramping with back pain starting at 0930 this am, GA 2 2/7 Disposition - Disposition OB Disposition: Triage, Discharge to home, Written follow up instructions reviewed Discharge Date: 11/23/21 Discharge Time: 21:00 I agree with the RN Medical Screening Exam: Yes Case reviewed; plan agreed upon as documented in EMR&OBIX.: Yes Diagnosis: RELATED CONDITIONS, UNSPECIFIED, SECOND TRIMESTER
== END 2021-11-23 21:00 | disposition home or self-care (01) ==
LOC: FBPOP 19:38
PROVIDERS: ATTEND Obstetrics & Gynecology
DX: O26.892 Other specified pregnancy related conditions, second trimester (principal); R10.9 Unspecified abdominal pain; M54.9 Dorsalgia, unspecified; Z3A.22 22 weeks gestation of pregnancy; Z87.891 Personal history of nicotine dependence; Z91.018 Allergy to other foods; Z88.8 Allergy status to other drugs, medicaments and biological substances; Z91.041 Radiographic dye allergy status; Z91.010 Allergy to peanuts
CPT/HCPCS: 81001; G0463; 99213

== ENCOUNTER 2022-02-11 22:45 | Outpatient (CLI) | payer OTHER ==
[2022-02-12 01:34] VITALS: BP 118/61; PULSE 88; RESP 16; TEMP 98
--- NOTE | 2022-02-28 11:28 | P.MSEPDOC ---
Presenting Problems - Arrival Data Date of Arrival on Unit: 02/12/22 Time of Arrival on Unit: 22:45 Mode of Transport: Ambulatory - Complaint OB-Reason for Admission/Chief Complaint: Decreased Movement Medical History - Information : 5 Para: 3 Term: 3 : 0 Abortions: Spontaneous or Elective: 1 Number of Living Children: 3 - Gestational Age Gestational Age by SHAILESH (wks/days): 32 Weeks and 3 Days - History Complications: GDM Review of Systems - Review of Systems Constitutional: No problems Breast: No problems ENT: No problems Cardiovascular: No problems Respiratory: No problems Gastrointestinal: No problems Genitourinary: No problems Musculoskeletal: No problems Neurological: No problems Skin: No problems Vital Signs - Temperature Temperature: 98.0 F Temperature Source: Oral - Pulse Right Brachial Pulse Rate: 88 Pulse Assessment Method: Automatic Cuff - Respirations Respiratory Rate: 16 Oxygen Delivery Method: Room Air O2 Sat by Pulse Oximetry: 98 - Blood Pressure Right Arm Blood Pressure: 118/61 Blood Pressure Mean: 80 Blood Pressure Source: Automatic Cuff Medical Screen Scoring - Assessment - Baby A Baseline FHR: 120 Heart Rate - NICHD Category: Category I (Normal) NST: Reactive Physician Notification - Physician Notified Physician Notified Date: 02/11/22 Physician Notified Time: 23:12 Physician: Thalia Aleman New Order Received: Yes (d/c) - Notification Comment Comment: Dr. Aleman called with report on patient that presents to triage for decreased movement. Reactive NST. Patient is feeling baby move. Patient reported some pressure on her abdomen while palpating, has resolved and reports no pain. Orders revieved for discharge. Maternal Triage Index - Stat/Priority 1 Stat Priority 1: No - Urgent/Priority 2 Urgent Priority 2: Yes Provider Notified: Thalia Aleman Provider Notified Time: 23:12 Criteria Met for Priority 2: Decreased movement Disposition - Disposition OB Disposition: Discharge to home Discharge Date: 02/11/22 Discharge Time: 23:12 I agree with the RN Medical Screening Exam: Yes Case reviewed; plan agreed upon as documented in EMR&OBIX.: Yes Diagnosis: DECREASED MOVEMENTS, THIRD TRIMESTER, FETUS 1
== END 2022-02-11 23:17 ==
LOC: FBPOP 22:45
PROVIDERS: ATTEND Obstetrics & Gynecology
DX: O36.8130 Decreased fetal movements, third trimester, not applicable or unspecified (principal); Z3A.32 32 weeks gestation of pregnancy; Z91.018 Allergy to other foods; Z88.8 Allergy status to other drugs, medicaments and biological substances; Z91.041 Radiographic dye allergy status
CPT/HCPCS: 59025; G0463; 99213

== ENCOUNTER 2022-02-24 16:58 | Outpatient (CLI) | payer OTHER ==
[2022-02-24 17:55] LABS: Glucose,Whole Blood 80 mg/dL (70-110)
[2022-02-24 18:28] VITALS: BP 138/73; PULSE 81; RESP 14; TEMP 97.1
--- NOTE | 2022-02-25 07:35 | P.MSEPDOC ---
Presenting Problems - Arrival Data Date of Arrival on Unit: 02/24/22 Time of Arrival on Unit: 17:15 Mode of Transport: Ambulatory - Complaint OB-Reason for Admission/Chief Complaint: Decreased Movement Comment: reports tightening in belly Medical History - Information : 5 Para: 3 Term: 3 : 0 Abortions: Spontaneous or Elective: 1 Number of Living Children: 3 - Gestational Age Gestational Age by SHAILESH (wks/days): 35 Weeks and 4 Days - History Complications: GDM Review of Systems - Review of Systems Constitutional: No problems Breast: No problems ENT: No problems Cardiovascular: No problems Respiratory: No problems Gastrointestinal: No problems Genitourinary: No problems Musculoskeletal: No problems Neurological: No problems Skin: No problems Vital Signs - Temperature Temperature: 97.1 F Temperature Source: Oral - Pulse Right Brachial Pulse Rate: 81 Pulse Assessment Method: Automatic Cuff - Respirations Respiratory Rate: 14 Oxygen Delivery Method: Room Air O2 Sat by Pulse Oximetry: 99 - Blood Pressure Right Arm Blood Pressure: 138/73 Blood Pressure Mean: 94 Blood Pressure Source: Automatic Cuff Medical Screen Scoring - Cervical Exam Dilation (cm): 1 Effacement (%): 50 Station: -3 Membranes: Intact - Assessment - Baby A Baseline FHR: 1 Heart Rate - NICHD Category: Category I (Normal) Physician Notification - Physician Notified Physician Notified Date: 02/24/22 Physician Notified Time: 18:07 Physician: Paty Bah Order Received: Yes - Notification Comment Comment: reported to dr bah pts visit, reactive nst after 40 minute active movement, orders to dc home Maternal Triage Index - Maternal Triage Index Presenting for scheduled procedure w/no complaint: No - Stat/Priority 1 Stat Priority 1: No - Urgent/Priority 2 Urgent Priority 2: No - Prompt/Priority 3 Prompt Priority 3: No - Non-Urgent/Priority 4 Non-Urgent Priority 4: Yes Criteria Met for Priority 4: tightening, dfm Disposition - Disposition OB Disposition: Discharge to home Discharge Date: 02/24/22 Discharge Time: 18:15 I agree with the RN Medical Screening Exam: Yes Case reviewed; plan agreed upon as documented in EMR&OBIX.: Yes Diagnosis: DECREASED MOVEMENTS, THIRD TRIMESTER, UNSP Additional Diagnoses: False labor
== END 2022-02-24 18:15 | disposition home or self-care (01) ==
LOC: FBPOP 16:58
PROVIDERS: ATTEND Obstetrics & Gynecology
DX: O36.8130 Decreased fetal movements, third trimester, not applicable or unspecified (principal); O47.03 False labor before 37 completed weeks of gestation, third trimester; Z3A.35 35 weeks gestation of pregnancy
CPT/HCPCS: 59025; G0463; 99213

== ENCOUNTER 2022-03-05 12:23 | Outpatient (CLI) | payer OTHER ==
[2022-03-05 13:23] VITALS: BP 138/81; PULSE 80; RESP 16; TEMP 97.3
--- NOTE | 2022-03-12 08:55 | P.MSEPDOC ---
Presenting Problems - Arrival Data Date of Arrival on Unit: 03/05/22 Time of Arrival on Unit: 12:23 Mode of Transport: Ambulatory - Complaint OB-Reason for Admission/Chief Complaint: Possible Onset of Labor Medical History - Information : 5 Para: 3 Term: 3 : 0 Abortions: Spontaneous or Elective: 1 Number of Living Children: 3 - Gestational Age Gestational Age by SHAILESH (wks/days): 36 Weeks and 6 Days - History Complications: GDM, Smoker Review of Systems - Review of Systems Constitutional: No problems Breast: No problems ENT: No problems Cardiovascular: No problems Respiratory: No problems Gastrointestinal: No problems Genitourinary: No problems Musculoskeletal: No problems Neurological: No problems Skin: No problems Vital Signs - Temperature Temperature: 97.3 F Temperature Source: Temporal Artery Scan - Pulse Right Sitting Pulse Rate: 80 Pulse Assessment Method: Automatic Cuff - Respirations Respiratory Rate: 16 Oxygen Delivery Method: Room Air - Blood Pressure Right Arm Blood Pressure: 138/81 Blood Pressure Mean: 100 Blood Pressure Source: Automatic Cuff Medical Screen Scoring - Cervical Exam Dilation (cm): 1.5 Effacement (%): 50 Station: -3 Membranes: Intact - Assessment - Baby A Baseline FHR: 135 Heart Rate - NICHD Category: Category I (Normal) NST: Reactive Physician Notification - Physician Notified Physician Notified Date: 03/05/22 Physician Notified Time: 13:10 Physician: Paty Bah Order Received: Yes (d/c home) Maternal Triage Index - Non-Urgent/Priority 4 Non-Urgent Priority 4: Yes Criteria Met for Priority 4: reactive nst, 1 contraction, vag exam 1cm/50%/-3 Disposition - Disposition OB Disposition: Discharge to home Discharge Date: 03/05/22 Discharge Time: 13:17 I agree with the RN Medical Screening Exam: Yes Case reviewed; plan agreed upon as documented in EMR&OBIX.: Yes Diagnosis: FALSE LABOR BEFORE 37 COMPLETED WEEKS OF GEST, THIRD TRI
== END 2022-03-05 13:17 | disposition home or self-care (01) ==
LOC: FBPOP 12:23
PROVIDERS: ATTEND Obstetrics & Gynecology
DX: O47.03 False labor before 37 completed weeks of gestation, third trimester (principal); Z3A.36 36 weeks gestation of pregnancy; Z91.041 Radiographic dye allergy status; Z91.018 Allergy to other foods; Z88.8 Allergy status to other drugs, medicaments and biological substances
CPT/HCPCS: 59025; G0463; 99213

== ENCOUNTER 2022-03-08 06:02 | Inpatient (IN) | payer OTHER ==
--- NOTE | 2022-03-07 17:03 | P.HPOB ---
History of Present Illness H&P Date: 03/07/22 Chief Complaint: Induction of labor, gestational diabetes This is a 27 y.o. 5, para 3, with an estimated date of confinement of 03/27/2022, estimated gestational age of 37-2/7 weeks, who presents for induction due to gestational diabetes and intermittently elevated umbilical dopplers. She was started on long-acting insulin at bedtime by [facility] but hasn't been taking it. She has not been very compliant with monitoring her sugars. [facility] has recommended delivery at 37 weeks due to intermittently elevated dopplers. She has been doing surveillance that has been reassuring. She does complain of frequent contractions and pressure. labs: [id number] Blood type-A+ Antibody screen-neg Hemoglobin-12.4 Rubella-immune RPR-NR Hepatitis B surface antigen-neg HIV-NR Chlamydia/GC-neg Cystic fibrosis-neg Pap-LGSIL 1 hr. GTT-171; 3 hr. GTT-abnormal GBS-neg OB Hx: . History of 3 vaginal deliveries at term. 1 miscarriage. 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 Hx LGSIL on pap during . Social Hx: Engaged. 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 [employer] Review of Systems Constitutional: Denies chills, Denies fever Eyes: denies blurred vision, denies pain Ears, nose, mouth and throat: Denies sore throat Cardiovascular: Denies chest pain, Denies shortness of breath Respiratory: Denies cough Gastrointestinal: Reports abdominal pain (contractions) Genitourinary: Reports pelvic pain, Reports Musculoskeletal: Reports low back pain Neurological: Reports migraines Psychiatric: Reports anxiety, Reports depression, Reports difficulty concentrating Past Medical History Past Medical History: Asthma, Seizure Disorder (Psueudoseizures), Thyroid Disorder Additional Past Medical History / Comment(s): Hydrocephalus; Degenerative disc disease History of Any Multi-Drug Resistant Organisms: MRSA Date of last positivie culture/infection: summer 2012 MDRO Source:: Left axillae Past Surgical History: Cholecystectomy Past Psychological History: ADD/ADHD, Anxiety, Depression Smoking Status: Vaper Past Alcohol Use History: None Reported Past Drug Use History: None Reported - Past Family History Mother Family Medical History: Seizure Disorder Additional Family Medical History / Comment(s): Heart disease; spinal cord tumor Medications and Allergies Home Medications Medication Instructions Recorded Confirmed Type Levothyroxine Sodium [Synthroid] 25 mcg PO DAILY 07/25/21 03/05/22 History Vzl-[id number] Acid 1 cap PO DAILY 07/25/21 03/05/22 History [-U Capsule (formulary)] Allergies Allergy/AdvReac Type Severity Reaction Status Date / Time blueberry Allergy Rash/Hives Verified 03/05/22 12:45 Jama Allergy Rash/Hives Verified 03/05/22 12:45 citalopram [From Celexa] Allergy Can not Verified 03/05/22 12:45 remember diphenhydramine HCl Allergy Anaphylaxis Verified 03/05/22 12:45 [From Benadryl] iodine Allergy Rash/Hives Verified 03/05/22 12:45 peas Allergy Rash/Hives Verified 03/05/22 12:45 red dye Allergy Rash/Hives Verified 03/05/22 12:45 clonazepam [From Klonopin] AdvReac Seizures Verified 03/05/22 12:45 duloxetine HCl AdvReac Hallucinati Verified 03/05/22 12:45 [From Cymbalta] ons fluoxetine [From Prozac] AdvReac Hallucinati Verified 03/05/22 12:45 ons topiramate [From Topamax] AdvReac Hallucinati Verified 03/05/22 12:45 ons Exam Osteopathic Statement: *. No significant issues noted on an osteopathic structural exam other than those noted in the History and Physical/Consult. HEENT: within normal limits Heart: regular rate and rhythm Lungs: clear to auscultation bilaterally Abdomen: , non-tender Cervix: 1 cm/70%/-2 heart tones: 140's by doppler Extremities: neg. Patrizia's Assessment and Plan (1) 37 weeks gestation of Status: Acute Code(s): Z3A.37 - 37 WEEKS GESTATION OF SNOMED Code(s): 95398756 (2) Gestational diabetes mellitus (GDM) Status: Acute Code(s): O24.419 - GESTATIONAL DIABETES MELLITUS IN , UNSP CONTROL SNOMED Code(s): 92539356 Plan: Proceed with oxytocin induction of labor. Expectant management. Will monitor sugars during labor. Epidural anesthesia if desired.
[2022-03-08] MEDS: LACTATED RINGERS 1,000 ML IV SCH ×3 (06:38→13:40)
[2022-03-08] MEDS ORDERED: LIDOCAINE 0.5% (PF) 5 MG/ML (50 ML SDV) SQ PRN (06:45)
[2022-03-08] MEDS ORDERED: OXYTOCIN 30 UNITS/500 ML NS 30 UNIT in SALINE 1 500ML.BAG IV SCH ×2 (06:45→18:15)
[2022-03-08] MEDS ORDERED: LIDOCAINE 1% (10MG/ML) FOR IV START INTRADERMA PRN (06:45)
[2022-03-08] MEDS ORDERED: CARBOPROST TROMETHAMINE 250 MCG/ML 1 ML AMP IM PRN (06:45)
[2022-03-08] MEDS ORDERED: METHYLERGONOVINE 0.2 MG/ML 1 ML AMP IM PRN (06:45)
[2022-03-08] MEDS ORDERED: TERBUTALINE 1 MG/ML VIAL SQ PRN (06:45)
[2022-03-08] MEDS ORDERED: OXYTOCIN 10 UNIT/ML 1 ML VIAL IM PRN (06:45)
[2022-03-08 07:37] LABS: Glucose,Whole Blood 97 mg/dL (70-110)
[2022-03-08 07:42] LABS: Basophils % (A) 0 %; Eosinophils # (A) 0.3 k/uL (0-0.7); Eosinophils % (A) 3 %; HCT 31.8 % (34.0-46.0); HGB 10.6 gm/dL (11.4-16.0); Lymphocytes # (A) 2.3 k/uL (1.0-4.8); Lymphocytes % (A) 20 %; MCHC 33.4 g/dL (31.0-37.0); MCV 83.8 fL (80.0-100.0); Mean Platelet Volume 10.3; Monocytes # (A) 0.5 k/uL (0-1.0); Monocytes % (A) 5 %; Neutrophils # (A) 7.7 k/uL (1.3-7.7); Neutrophils % (A) 70 %; Platelet Count 267 k/uL (150-450); RBC 3.79 m/uL (3.80-5.40); RDW 13.7 % (11.5-15.5); WBC 11.1 k/uL (3.8-10.6)
[2022-03-08 09:40] LABS: Glucose,Whole Blood 95 mg/dL (70-110)
[2022-03-08] MEDS ORDERED: fentaNYL (PF) 50 MCG/ML 5 ML AMP ONE (09:55)
[2022-03-08] MEDS ORDERED: ROPIVACAINE 5 MG/ML 20 ML AMPULE ONE (09:55)
[2022-03-08] MEDS ORDERED: SODIUM CHLORIDE 0.9% 100 ML BAG ONE (09:55)
[2022-03-08 11:53] LABS: Glucose,Whole Blood 85 mg/dL (70-110)
[2022-03-08 13:45] LABS: Glucose,Whole Blood 83 mg/dL (70-110)
[2022-03-08] MEDS ORDERED: ONDANSETRON 4 MG/2 ML VIAL IVP STA (15:59)
[2022-03-08 16:08] LABS: Glucose,Whole Blood 76 mg/dL (70-110)
--- NOTE | 2022-03-08 18:01 | P.PROBDLV ---
Vaginal Delivery Note - . Vaginal Delivery Note: The patient progressed to complete dilation after oxytocin induction of labor and artificial rupture members with clear fluid noted. She did receive epidural anesthesia. Once reaching complete, she began pushing. 's a came to a crown. With one further push, the 's head delivered across the perineum. At this point she stops pushing. I did encourage her to continue to push to get the shoulder to release. With a couple further pushes she was able to release the anterior shoulder and then nose and mouth were bulb suctioned at the perineum. With one remaining push, the remainder the infant easily delivered and was placed on mother's abdomen. Cord was clamped and cut and infant was taken to warmer for evaluation. A viable female was noted with scores of 8 at 1 minute and 9 at 5 minutes and infant weight of 6 pounds 7.4 ounces. Placenta delivered shortly thereafter, intact, with a three-vessel cord. Uterus contracted well after oxytocin was given and uterine massage was carried out. In section of the perineum revealed no perineal lacerations. Estimated blood loss is approximately 100 mL's. Both mother and are in stable condition at this time.
[2022-03-08] MEDS ORDERED: SIMETHICONE 80 MG CHEWABLE PO PRN (18:08)
[2022-03-08] MEDS ORDERED: HYDROCORTISONE 2.5% RECTAL CREAM 30 GM TUBE RECTAL PRN (18:08)
[2022-03-08] MEDS ORDERED: LANOLIN CREAM 5 GM TUBE TOPICAL PRN (18:08)
[2022-03-08] MEDS ORDERED: BENZOCAINE/MENTHOL SPRAY 1 GM/SPRAY AEROSOL TOPICAL PRN (18:08)
[2022-03-08] MEDS ORDERED: ACETAMINOPHEN TAB 325 MG TAB PO PRN (18:08)
[2022-03-08] MEDS ORDERED: ZOLPIDEM 5 MG TAB PO PRN (18:08)
[2022-03-08] MEDS: IBUPROFEN 600 MG TAB PO PRN (20:01)
[2022-03-08] MEDS: SENNOSIDES-DOCUSATE SODIUM 1 EACH TAB PO SCH (20:01)
[2022-03-09] MEDS: IBUPROFEN 600 MG TAB PO PRN (05:50)
[2022-03-09] MEDS ORDERED: LEVOTHYROXINE 25 MCG TAB PO SCH (06:30)
--- NOTE | 2022-03-09 08:16 | P.PNOBGVD ---
Subjective - Subjective Patient reports: Reports appetite normal, Reports voiding normally, Reports pain well controlled, Reports ambulating normally : doing well Objective - Latest Vital Signs Latest vital signs: Vital Signs Temp Pulse Resp BP Pulse Ox 03/09/22 04:00 98.4 F 67 16 125/81 97 03/09/22 00:00 98.3 F 75 16 128/72 98 03/08/22 20:09 98.0 F 85 16 116/57 03/08/22 19:39 70 16 121/66 03/08/22 19:09 97.9 F 87 18 122/63 03/08/22 18:54 80 16 125/56 03/08/22 18:39 74 16 124/63 03/08/22 18:24 70 16 119/58 03/08/22 18:09 78 16 119/57 Intake and Output 03/08/22 03/09/22 03/09/22 22:59 06:59 14:59 Intake Total 502.1 480 Output Total 450 Balance 52.1 480 Intake: Intake, IV Titration 22.1 Amount Oxytocin 30 Units/500 ml 22.1 Ns 30 unit In Saline 1 500ml.bag @ Per Protocol IV .Q0M [facility] Rx#:[id number] Oral 480 480 Output: Estimated Blood Loss 200 Output, Quantitative 250 Blood Loss Other: # Voids 2 # Bowel Movements 1 - Exam Lungs: bilateral: normal Chest: Normal S1, Normal S2 Extremities: Present: normal Abdomen: Present: normal appearance, soft Uterus: Present: normal, firm - Labs Labs: Abnormal Lab Results - Last 24 Hours (Table) 03/08/22 Range/Units 06:38 Hemoglobin A1c 6.5 H (0.0-6.0) % Assessment and Plan Assessment: day #1. Patient is resting without new complaints and wishes to go home. Vital signs are stable and she is afebrile. Uterus is firm nontender and she is having normal lochia. My impression this is a normal course. Plan is to continue routine care discharge home later today (1) Vaginal delivery Current Visit: Yes Status: Acute Code(s): O80 - ENCOUNTER FOR FULL-TERM UNCOMPLICATED DELIVERY SNOMED Code(s): 416563668
[2022-03-09 08:18] LABS: Basophils % (A) 0 %; Eosinophils # (A) 0.3 k/uL (0-0.7); Eosinophils % (A) 2 %; HCT 31.3 % (34.0-46.0); HGB 10.7 gm/dL (11.4-16.0); Lymphocytes % (A) 17 %; MCHC 34.2 g/dL (31.0-37.0); MCV 84.6 fL (80.0-100.0); Mean Platelet Volume 9.6; Monocytes # (A) 0.5 k/uL (0-1.0); Monocytes % (A) 4 %; Neutrophils # (A) 9.3 k/uL (1.3-7.7); Neutrophils % (A) 76 %; Platelet Count 243 k/uL (150-450); RDW 13.4 % (11.5-15.5); WBC 12.2 k/uL (3.8-10.6)
--- NOTE | 2022-03-09 08:21 | P.DS ---
Providers Date of admission: 03/08/22 06:02 Expected date of discharge: 03/09/22 Attending physician: Paty Bah Primary care physician: Stated None - Discharge Diagnosis(es) (1) Vaginal delivery Current Visit: Yes Status: Acute Hospital Course: Please see dictated H&P per Dr. Bah on this patient's admission and delivery. Brief summary is a pleasant 27-year-old 5 para 3 female 37-2/7 weeks gestation admitted to labor and delivery for induction secondary to intrauterine growth restriction. Patient is admitted has induction of labor and was on have a vaginal delivery viable female infant. Please see dictated delivery note. day 1 patient is doing well wishes to go home. Patient's felt to be stable for discharge home follow up with Dr. Gomez in 6 weeks. Procedures: Induction of labor and normal vaginal delivery Patient Condition at Discharge: Good Plan - Discharge Summary New Discharge Prescriptions: New Ibuprofen [Motrin] 600 mg PO Q6HR PRN #30 tab PRN Reason: Mild Pain (Scale 1 To 3) No Action Buu-Zsaj-Jskaz Acid [-U Capsule (formulary)] 1 cap PO DAILY Levothyroxine Sodium [Synthroid] 25 mcg PO DAILY Discharge Medication List Levothyroxine Sodium [Synthroid] 25 mcg PO DAILY 07/25/21 [History] Tad-Nekh-Hqqqv Acid [-U Capsule (formulary)] 1 cap PO DAILY 07/25/21 [History] Ibuprofen [Motrin] 600 mg PO Q6HR PRN #30 tab 03/09/22 [Rx] Follow up Appointment(s)/Referral(s): Paty Bah DO [Doctor of Osteopathic Medicine] - 04/23/22 11:15 am Patient Instructions/Handouts: Vaginal Delivery (DC) Activity/Diet/Wound Care/Special Instructions: No intercourse or anything per vagina for 6 weeks. Please call if any fever, chills, excessive vaginal bleeding, and/or abdominal pain Discharge Disposition: HOME SELF-CARE
[2022-03-09 08:31] VITALS: RESP 14
[2022-03-09] MEDS ORDERED: PRENATAL VIT-IRON-FOLIC ACID 1 EACH TABLET PO SCH (09:00)
[2022-03-09] MEDS: SENNOSIDES-DOCUSATE SODIUM 1 EACH TAB PO SCH (10:10)
[2022-03-09 15:38] VITALS: BP 128/78; PULSE 79; TEMP 98
== END 2022-03-09 18:20 | disposition home or self-care (01) | DRG 806 ==
LOC: 4FBP 06:02
PROVIDERS: ADMIT Obstetrics & Gynecology; ATTEND Obstetrics & Gynecology
PROC: 10E0XZZ Delivery of Products of Conception, External Approach (ICD-10-PCS; principal; 2022-03-08)
PROC: 10907ZC Drainage of Amniotic Fluid, Therapeutic from Products of Conception, Via Natural or Artificial Opening (ICD-10-PCS; 2022-03-08)
PROC: 3E033VJ Introduction of Other Hormone into Peripheral Vein, Percutaneous Approach (ICD-10-PCS; 2022-03-08)
PROC: 4A0HXCZ Measurement of Products of Conception, Cardiac Rate, External Approach (ICD-10-PCS; 2022-03-08)
DX: O24.424 Gestational diabetes mellitus in childbirth, insulin controlled (principal); O99.354 Diseases of the nervous system complicating childbirth; Z37.0 Single live birth; O36.5930 Maternal care for other known or suspected poor fetal growth, third trimester, not applicable or unspecified; F32.A Depression, unspecified; O99.52 Diseases of the respiratory system complicating childbirth; F41.9 Anxiety disorder, unspecified; F90.9 Attention-deficit hyperactivity disorder, unspecified type; G40.909 Epilepsy, unspecified, not intractable, without status epilepticus; J45.909 Unspecified asthma, uncomplicated; O99.344 Other mental disorders complicating childbirth; Z3A.37 37 weeks gestation of pregnancy; Z79.890 Hormone replacement therapy; Z91.041 Radiographic dye allergy status; Z91.018 Allergy to other foods; Z87.59 Personal history of other complications of pregnancy, childbirth and the puerperium
CPT/HCPCS: 83036; 85025; 86850; 86900; 86901

== ENCOUNTER → 2022-06-05 | Outpatient (CLI) | payer OTHER ==
[2022-06-05 23:47] LABS: Basophils # (A) 0.05 X 10*3/uL (0.00-0.10); Basophils % (A) 0.3 %; Eosinophils # (A) 0.36 X 10*3/uL (0.04-0.35); Eosinophils % (A) 2.2 %; HCT 38.9 % (37.2-46.3); Immature Grans, Automated 0.4 %; Lymphocytes # (A) 2.29 X 10*3/uL (0.90-5.00); Lymphocytes % (A) 14.2 %; MCH 26.5 pg (27.0-32.0); MCHC 30.8 g/dL (32.0-37.0); MCV 85.9 fL (80.0-97.0); Mean Platelet Volume 10.6 fL (9.5-12.2); Monocytes % (A) 4.9 %; NRBC Per 100 WBC 0 /100 WBCS (0.0-0.0); Neutrophils # (A) 12.61 X 10*3/uL (1.80-7.70); Platelet Count 449 X 10*3/uL (140-440); RBC 4.53 X 10*6/uL (4.10-5.20); RDW 13.2 % (11.5-14.5); WBC 16.17 X 10*3/uL (4.50-10.00)
== END | disposition home or self-care (01) ==
LOC: LABPAT 15:49
PROVIDERS: ATTEND Obstetrics & Gynecology
DX: Z01.812 Encounter for preprocedural laboratory examination (principal)
CPT/HCPCS: 85025

== ENCOUNTER 2022-11-05 10:51 | Emergency (ER) | payer OTHER ==
--- NOTE | 2022-11-05 11:17 | ED ---
General Adult HPI - General Source: RN notes reviewed <Loan Navarro - Last Filed: 11/05/22 11:16> - General Source: patient, RN notes reviewed Mode of arrival: ambulatory Limitations: no limitations - History of Present Illness MD Complaint: Sore throat, body aches Onset/Timin -: days(s) <Jacquie Traylor - Last Filed: 11/05/22 16:05> - General Chief complaint: ENT Stated complaint: Body Aches Sore Throat Time Seen by Provider: 11/05/22 11:17 - History of Present Illness Initial comments: 27-year-old female with no significant past medical history presents the emergency department with a chief complaint of generalized body aches 2 days. She is accompanied accompanied symptoms of headache, congestion, chills. No known fevers. (Loan Navarro) When I went to evaluate the patient, she also complained of a sore throat. She has an occasional cough, but that is otherwise not a bothersome issue. she has not taken her temperature, but has experienced chills. 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 (Jacquie Traylor) - Related Data Home Medications Medication Instructions Recorded Confirmed Levothyroxine Sodium [Synthroid] 25 mcg PO DAILY 07/25/21 07/01/22 Albuterol Inhaler [Ventolin Hfa 1 - 2 puff INHALATION Q6H PRN 06/05/22 07/01/22 Inhaler] busPIRone HCL [Buspar] 7.5 mg PO BID PRN 06/05/22 07/01/22 Previous Rx's Medication Instructions Recorded oxyCODONE HCL [OxyIR] 5 mg PO Q6H PRN 3 Days #12 tab 07/01/22 Amoxic-Pot Clav 875-125Mg 1 tab PO Q12HR 10 Days #20 tab 11/05/22 [Augmentin 875-125] Allergies Allergy/AdvReac Type Severity Reaction Status Date / Time diphenhydramine HCl Allergy Severe Anaphylaxis Verified 11/05/22 11:18 [From Benadryl] blueberry Allergy Mild Rash/Hives Verified 11/05/22 11:18 Jama Allergy Mild Rash/Hives Verified 11/05/22 11:18 citalopram [From Celexa] Allergy Can not Verified 11/05/22 11:18 remember iodine Allergy Rash/Hives Verified 11/05/22 11:18 peas Allergy Rash/Hives Verified 11/05/22 11:18 red dye Allergy Rash/Hives Verified 11/05/22 11:18 clonazepam [From Klonopin] AdvReac Seizures Verified 11/05/22 11:18 duloxetine HCl AdvReac Hallucinati Verified 11/05/22 11:18 [From Cymbalta] ons fluoxetine [From Prozac] AdvReac Hallucinati Verified 11/05/22 11:18 ons topiramate [From Topamax] AdvReac Hallucinati Verified 11/05/22 11:18 ons Review of Systems ROS Other: All systems not noted in ROS Statement are negative. <Loan Navarro - Last Filed: 11/05/22 11:16> ROS Other: All systems not noted in ROS Statement are negative. <Jacquie Traylor - Last Filed: 11/05/22 16:05> ROS Statement: Those systems with pertinent positive or pertinent negative responses have been documented in the HPI. Past Medical History Past Medical History: Asthma, Seizure Disorder, Thyroid Disorder Additional Past Medical History / Comment(s): Back pain, DDD, last seizure ?Oct. or Nov-anxiety induced per pt, pseudo tumor cerebrei-sees Neurologist. Hx hydrocephalus. History of Any Multi-Drug Resistant Organisms: MRSA Date of last positivie culture/infection: summer 2012 MDRO Source:: Left axillae Past Surgical History: Cholecystectomy Past Anesthesia/Blood Transfusion Reactions: Family History of Problems w/ Anesthesia Additional Past Anesthesia/Blood Transfusion Reaction / Comment(s): Mom had trouble w/anesthesia relating to bad heart valves & heart not pumping well. Past Psychological History: Anxiety, Depression, PTSD Smoking Status: Former smoker, Vaper Past Alcohol Use History: Occasional Additional Past Alcohol Use History / Comment(s): Quit smoking cigarettes, vapes daily. Past Drug Use History: None Reported - Past Family History Mother Family Medical History: Seizure Disorder Additional Family Medical History / Comment(s): Heart disease; spinal cord tumor. <Loan Navarro - Last Filed: 11/05/22 11:16> General Exam <Loan Navarro - Last Filed: 11/05/22 11:16> Limitations: no limitations General appearance: alert, in no apparent distress Head exam: Present: atraumatic, normocephalic, normal inspection ENT exam: Present: other (Posterior pharyngeal erythema and 2+ tonsillar hypertrophy. No exudates.) Neck exam: Present: normal inspection. Absent: tenderness, meningismus, lymphadenopathy Respiratory exam: Present: normal lung sounds bilaterally. Absent: respiratory distress, wheezes, rales, rhonchi, stridor Cardiovascular Exam: Present: regular rate, normal rhythm, normal heart sounds. Absent: systolic murmur, diastolic murmur, rubs, gallop, clicks Neurological exam: Present: alert, oriented X3, CN II-XII intact Psychiatric exam: Present: normal affect, normal mood Skin exam: Present: warm, dry, intact, normal color. Absent: rash <Jacquie Traylor - Last Filed: 11/05/22 16:05> - General Exam Comments Initial Comments: Visual Physical Exam Vital signs reviewed General: Well-appearing, nontoxic, no acute distress. Head: Normocephalic, atraumatic Eyes: PERRLA, EOMI ENT: Airway patent Chest: Nonlabored breathing Skin: No visual rash, normal skin tone Neuro: Alert and oriented 3 Musculoskeletal: No gross abnormalities (Loan Navarro) Course Vital Signs 11/05/22 11/05/22 11/05/22 11:15 11:46 13:13 Temperature 99.3 F 99.3 F 98.2 F Pulse Rate 99 97 Respiratory 20 16 Rate Blood Pressure 126/87 124/79 O2 Sat by Pulse 98 99 Oximetry Medical Decision Making - Radiology Data Radiology results: report reviewed, image reviewed <Jacquie Traylor - Last Filed: 11/05/22 16:05> - Medical Decision Making this is a 27-year-old female who presents to the emergency department for body aches due to a sore throat. Was pt. sent in by a medical professional or institution? @ -No Did you speak to anyone other than the patient for history? @ -None Did you review nursing and triage notes? @ -Yes, and I agree, it is accurate with regards to the patient's symptoms. Were old charts reviewed? @ -No Differential Diagnosis? @ -Differential Sore Throat: -Strep pharyngitis, herpes zoster, COVID, influenza, GERD, allergic rhinitis, mononucleosis, this is not meant to be an all-inclusive list. EKG interpreted by me (3pts min.)? @ -Not obtained X-rays interpreted by me (1pt min.)? @ -Chest x-ray obtained, my interpretation identifies no localized consolidations or infiltrates. CT interpreted by me (1pt min.)? @ -Not obtained U/S interpreted by me (1pt. min.)? @ -Not obtained What testing was considered but not performed? (CT, X-rays, U/S, labs)? Why? @ -None What meds were considered but not given? Why? @ -None Did you discuss the management of the patient with other professionals? @ -No Did you reconcile home meds? @ -No Was smoking cessation discussed for >3mins.? @ -No Was critical care preformed (if so, how long)? @ -No Were there social determinants of health that impacted care today? How? (Homele ssness, low income, unemployed, alcoholism, drug addiction, transportation, low edu. Level, literacy, decrease access to med. care, halfway, rehab)? @ -No Was there de-escalation of care discussed even if they declined? (Discuss DNR or withdrawal of care, Hospice)? @ -No What co-morbidities impacted this encounter? (DM, HTN, Smoking, COPD, CAD, Cancer, CVA, Hep., AIDS, mental health diagnosis, sleep apnea, morbid obesity)? @ -Asthma Was patient admitted / discharged? @ -Discharged. Covid, influenza, and RSV testing negative. Chest x-ray reveals no acute process. Rapid strep test is positive. She was given a dose of ibuprofen and Decadron in the emergency department. Prescription for Augmentin provided with dosing instructions reviewed. Advised ibuprofen and Tylenol as needed for fevers and discomfort. She will otherwise continue with supportive care. Undiagnosed new problem with uncertain prognosis? @ -None Drug Therapy requiring intensive monitoring for toxicity (Heparin, Nitro, Insulin, Cardizem)? @ -None Were any procedures done? @ -None Diagnosis/symptom? @ -Strep Throat Acute, or Chronic, or Acute on Chronic? @ -Acute Uncomplicated (without systemic symptoms) or Complicated (systemic symptoms)? @ -Uncomplicated Side effects of treatment? @ -None Exacerbation, Progression, or Severe Exacerbation] @ -Not applicable Poses a threat to life or bodily function? @ -No Return precautions reviewed in depth, the patient is instructed to return to the emergency department with any new, worsening, or concerning symptoms. Patient verbalized understanding. This case was discussed in detail with the attending ED physician, Dr. Lofton. Presentation, findings, and treatment plan discussed in detail as well. (Jacquie Traylor) - Lab Data Lab Results 11/05/22 11/05/22 Range/Units 11:19 11:59 Influenza Type A (PCR) Not Detected (Not Detectd) Influenza Type B (PCR) Not Detected (Not Detectd) RSV (PCR) Not Detected (Not Detectd) SARS-CoV-2 (PCR) Not Detected (Not Detectd) Group A Strep (PCR) DETECTED A (Not Detectd) Disposition <Loan Navarro - Last Filed: 11/05/22 11:16> Is patient prescribed a controlled substance at d/c from ED?: No <Jacquie Traylor - Last Filed: 11/05/22 16:05> Clinical Impression: Strep pharyngitis Disposition: HOME SELF-CARE Instructions (If sedation given, give patient instructions): Strep Throat (ED) Additional Instructions: Return to the emergency department with any new, worsening, or concerning symptoms. Alternate with ibuprofen and Tylenol as needed for pain relief and fevers. Take the antibiotic as prescribed for 10 days. Follow up with your primary care provider in 1-2 days. Prescriptions: Amoxic-Pot Clav 875-125Mg [Augmentin 875-125] 1 tab PO Q12HR 10 Days #20 tab Referrals: Favio Ford MD [Primary Care Provider] - 1-2 days
[2022-11-05] MEDS ORDERED: IBUPROFEN 800 MG TAB PO STA (11:57)
[2022-11-05] MEDS ORDERED: dexAMETHasone 2 MG TAB PO STA (11:57)
--- NOTE | 2022-11-05 12:20 | XR ---
EXAMINATION TYPE: XR chest 2V DATE OF EXAM: 11/05/2022 12:08 PM COMPARISON: Chest radiographs from 09/06/2021 TECHNIQUE: XR chest 2V Frontal and lateral views of the chest. CLINICAL INDICATION:Female, 27 years old with history of cough; FINDINGS: Lungs/Pleura: There is no evidence of pleural effusion, focal consolidation, or pneumothorax. Pulmonary vascularity: Unremarkable. Heart/mediastinum: Cardiomediastinal silhouette is unremarkable. Musculoskeletal: No acute osseous pathology. IMPRESSION: No acute cardiopulmonary disease/process.
[2022-11-05] MEDS ORDERED: IBUPROFEN 600 MG STARTER PACK 4 TAB BTL PO STA (12:59)
[2022-11-05] MEDS ORDERED: ACET/COD 300 MG/30 MG STARTER PACK 6 TAB BTL PO STA (12:59)
[2022-11-05 13:14] VITALS: BP 124/79; PULSE 97; RESP 16; TEMP 98.2
== END 2022-11-05 13:18 | disposition home or self-care (01) ==
LOC: EC 10:51
DX: J02.0 Streptococcal pharyngitis (principal); B95.0 Streptococcus, group A, as the cause of diseases classified elsewhere; J45.909 Unspecified asthma, uncomplicated; E07.9 Disorder of thyroid, unspecified; F41.9 Anxiety disorder, unspecified; F32.A Depression, unspecified; F17.290 Nicotine dependence, other tobacco product, uncomplicated; Z79.899 Other long term (current) drug therapy; Z91.018 Allergy to other foods; Z88.8 Allergy status to other drugs, medicaments and biological substances; Z20.822 Contact with and (suspected) exposure to COVID-19
CPT/HCPCS: 87651; 87636; 71046; 99283; J8540

== ENCOUNTER 2022-12-03 00:17 | Emergency (ER) | payer OTHER ==
--- NOTE | 2022-12-03 01:03 | ED ---
General Adult HPI - General Source: RN notes reviewed <Loan Navarro - Last Filed: 12/03/22 01:03> <Melvin Luna - Last Filed: 12/03/22 07:18> - General Stated complaint: ABD Pain Time Seen by Provider: 12/03/22 01:02 - History of Present Illness Initial comments: 27-year-old female with no significant past medical history presents the emergency department with a chief complaint of left lower quadrant abdominal pain. Patient reports that she is unsure if she is . reports accompanying symptoms of nausea (Loan Navarro) Patient is a 27-year-old female who presents emergency Department complaining of abdominal pain. States the pain is on the left side of her abdomen seems to be in the abdominal wall. Has been present for a few days and comes and goes. Intermittent nausea. No emesis. No diarrhea. No constipation. Has a history of a tubal ligation this past June. Has missed her period, last menstrual period was October 28. Unknown what is causing her current symptoms. Since or further evaluation at this time. Denies constipation or diarrhea. Denies any fevers or chills. Denies any vaginal discharge or bleeding. Has no urinary complaints. (Melvin Luna) - Related Data Home Medications Medication Instructions Recorded Confirmed Levothyroxine Sodium [Synthroid] 25 mcg PO DAILY 07/25/21 07/01/22 Albuterol Inhaler [Ventolin Hfa 1 - 2 puff INHALATION Q6H PRN 06/05/22 07/01/22 Inhaler] busPIRone HCL [Buspar] 7.5 mg PO BID PRN 06/05/22 07/01/22 Previous Rx's Medication Instructions Recorded oxyCODONE HCL [OxyIR] 5 mg PO Q6H PRN 3 Days #12 tab 07/01/22 Amoxic-Pot Clav 875-125Mg 1 tab PO Q12HR 10 Days #20 tab 11/05/22 [Augmentin 875-125] Allergies Allergy/AdvReac Type Severity Reaction Status Date / Time diphenhydramine HCl Allergy Severe Anaphylaxis Verified 11/05/22 11:18 [From Benadryl] blueberry Allergy Mild Rash/Hives Verified 11/05/22 11:18 Jama Allergy Mild Rash/Hives Verified 11/05/22 11:18 citalopram [From Celexa] Allergy Can not Verified 11/05/22 11:18 remember iodine Allergy Rash/Hives Verified 11/05/22 11:18 peas Allergy Rash/Hives Verified 11/05/22 11:18 red dye Allergy Rash/Hives Verified 11/05/22 11:18 clonazepam [From Klonopin] AdvReac Seizures Verified 11/05/22 11:18 duloxetine HCl AdvReac Hallucinati Verified 11/05/22 11:18 [From Cymbalta] ons fluoxetine [From Prozac] AdvReac Hallucinati Verified 11/05/22 11:18 ons topiramate [From Topamax] AdvReac Hallucinati Verified 11/05/22 11:18 ons Review of Systems ROS Other: All systems not noted in ROS Statement are negative. <Loan Navarro - Last Filed: 12/03/22 01:03> ROS Other: All systems not noted in ROS Statement are negative. <Melvin Luna - Last Filed: 12/03/22 07:18> ROS Statement: Those systems with pertinent positive or pertinent negative responses have been documented in the HPI. Review of Systems: CONST: Denies fever EYES: Denies blurry vision ENT: Denies nasal congestion C/V: Denies Chest pain RESP: Denies shortness of breath GI: Endorses abdominal pain : Denies dysuria SKIN: Denies rash. MSK: Denies joint pain. NEURO: Denies headache (Melvin Luna) Past Medical History Past Medical History: Asthma, Seizure Disorder, Thyroid Disorder Additional Past Medical History / Comment(s): Back pain, DDD, last seizure ?Oct. or Nov-anxiety induced per pt, pseudo tumor cerebrei-sees Neurologist. Hx hydrocephalus. History of Any Multi-Drug Resistant Organisms: MRSA Date of last positivie culture/infection: summer 2012 MDRO Source:: Left axillae Past Surgical History: Cholecystectomy Past Anesthesia/Blood Transfusion Reactions: Family History of Problems w/ Anesthesia Additional Past Anesthesia/Blood Transfusion Reaction / Comment(s): Mom had trouble w/anesthesia relating to bad heart valves & heart not pumping well. Past Psychological History: Anxiety, Depression, PTSD Smoking Status: Former smoker, Vaper Past Alcohol Use History: Occasional Additional Past Alcohol Use History / Comment(s): Quit smoking cigarettes, vapes daily. Past Drug Use History: None Reported - Past Family History Mother Family Medical History: Seizure Disorder Additional Family Medical History / Comment(s): Heart disease; spinal cord tumor. <Loan Navarro - Last Filed: 12/03/22 01:03> General Exam <Loan Navarro - Last Filed: 12/03/22 01:03> <Melvin Luna - Last Filed: 12/03/22 07:18> - General Exam Comments Initial Comments: Visual Physical Exam Vital signs reviewed General: Well-appearing, nontoxic, no acute distress. Head: Normocephalic, atraumatic Eyes: PERRLA, EOMI ENT: Airway patent Chest: Nonlabored breathing Skin: No visual rash, normal skin tone Neuro: Alert and oriented 3 Musculoskeletal: No gross abnormalities (Loan Navarro) General: Appears in no acute distress. HEAD: Normal with no signs of head trauma. EYES: PERRLA, EOMI, conjunctiva normal, no discharge. ENT: Hearing grossly intact, normal oropharynx. RESPIRATORY: Clear breath sounds bilaterally. No wheezes, rales, or rhonchi. C/V: Regular rate and rhythm. S1 and S2 auscultated, no edema, peripheral pulses 2+ and intact throughout ABD: Abdomen is soft, nondistended. Mild tenderness to palpation what appears to be the abdominal wall and left mid abdomen. No guarding. No peritoneal signs. No rebound tenderness. Symptoms are mild at this time. EXT: Normal range of motion, no obvious deformity SKIN: No rashes or lesions observed on exposed skin. NEURO: Alert and oriented 4. (Melvin Luan) Course Vital Signs 12/03/22 12/03/22 00:59 02:50 Temperature 98.8 F 97.8 F Pulse Rate 92 86 Respiratory 16 18 Rate Blood Pressure 161/113 140/86 O2 Sat by Pulse 97 99 Oximetry Medical Decision Making - Lab Data Result diagrams: 12/03/22 01:11 12/03/22 01:11 <Melvin Luna - Last Filed: 12/03/22 07:18> - Medical Decision Making Was pt. sent in by a medical professional or institution (, PA, ZINC PLATING MACHINE OPERATOR, urgent ca re, hospital, or residential...) When possible be specific @ -No Did you speak to anyone other than the patient for history (EMS, parent, family, police, friend...)? What history was obtained from this source @ -No Did you review nursing and triage notes (agree or disagree)? Why? @ -I reviewed and agree with nursing and triage notes Were old charts reviewed (outside hosp., previous admission, EMS record, old EKG, old radiological studies, urgent care reports/EKG's, residential records)? Report findings @ -No old charts were reviewed Differential Diagnosis (chest pain, altered mental status, abdominal pain women, abdominal pain men, vaginal bleeding, weakness, fever, dyspnea, syncope, headache, dizziness, GI bleed, back pain, seizure, CVA, palpatations, mental health, musculoskeletal)? @ -Differential Abdominal Pain Women: Appendicitis, Cholecystitis, diverticulosis, ischemic bowel, pancreatitis, hepatitis, UTI, gastroenteritis, AAA, incarcerated hernia, bowel obstruction, constipation, inflammatory bowel, hepatitis, peptic ulcer disease, splenic infarction, perforated viscus, vulvitis, ovarian torsion, PID, kidney stone, placenta abruption, this is not meant to be an all-inclusive list EKG interpreted by me (3pts min.). @ -None done X-rays interpreted by me (1pt min.). @ -None done CT interpreted by me (1pt min.). @ -None done U/S interpreted by me (1pt. min.). @ -None done What testing was considered but not performed or refused? (CT, X-rays, U/S, labs)? Why? @ -None What meds were considered but not given or refused? Why? @ -I offered analgesic medications which were declined. Did you discuss the management of the patient with other professionals (professionals i.e. , PA, ZINC PLATING MACHINE OPERATOR, lab, RT, psych nurse, clinical social work therapist, president financial institution, teacher, staff electronic warfare officer, lead case manager)? Give summary @ -No Was smoking cessation discussed for >3mins.? @ -No Was critical care preformed (if so, how long)? @ -No Were there social determinants of health that impacted care today? How? (Homelessness, low income, unemployed, alcoholism, drug addiction, tra nsportation, low edu. Level, literacy, decrease access to med. care, intermediate, rehab)? @ -No Was there de-escalation of care discussed even if they declined (Discuss DNR or withdrawal of care, Hospice)? DNR status @ -No What co-morbidities impacted this encounter? (DM, HTN, Smoking, COPD, CAD, Cancer, CVA, ARF, Chemo, Hep., AIDS, mental health diagnosis, sleep apnea, morbid obesity)? @ -None Was patient admitted / discharged? Hospital course, mention meds given and route, prescriptions, significant lab abnormalities, going to OR and other pertinent info. @ -Based on the patient's presentation and physical exam, I'm concerned for possible intra-abdominal process for the patient, workup including labs have already been completed by the time I evaluate the patient. They're unremarkable. This includes negative test. I did discuss this with the patient. I do not believe she requires imaging at this time and she was in agreement with this. Strict return precautions discussed. Vital signs within acceptable limits. She'll be discharged home at this time. Exam unremarkable. I instructed the patient to follow up with their PCP in the next 1-3 days. I explained that the patient should return to the emergency department if they e xperience any worsening symptoms. Strict return precautions were discussed with the patient. The patient expressed understanding of these instructions. I answered all questions that the patient had. The patient was discharged home in good condition with their prescriptions and follow up information. Undiagnosed new problem with uncertain prognosis? @ -No Drug Therapy requiring intensive monitoring for toxicity (Heparin, Nitro, Insulin, Cardizem)? @ -No Were any procedures done? @ -No Diagnosis/symptom? @ -Abdominal pain of unknown etiology, suspect abdominal wall pain Acute, or Chronic, or Acute on Chronic? @ -Acute Uncomplicated (without systemic symptoms) or Complicated (systemic symptoms)? @ -Uncomplicated Side effects of treatment? @ -No Exacerbation, Progression, or Severe Exacerbation? @ -No Poses a threat to life or bodily function? How? (Chest pain, [place], [place], pneumonia, PE, COPD, DKA, ARF, appy, cholecystitis, CVA, Diverticulitis, Homicidal, Suicidal, threat to staff... and all critical care pts) @ -No (Melvin Luna) - Lab Data Lab Results 12/03/22 12/03/22 12/03/22 Range/Units 01:11 01:11 02:17 WBC 10.0 (3.8-10.6) k/uL RBC 4.57 (3.80-5.40) m/uL Hgb 12.8 (11.4-16.0) gm/dL Hct 39.1 (34.0-46.0) % MCV 85.6 (80.0-100.0) fL MCH 27.9 (25.0-35.0) pg MCHC 32.6 (31.0-37.0) g/dL RDW 13.1 (11.5-15.5) % Plt Count 353 (150-450) k/uL MPV 8.1 Neutrophils % 47 % Lymphocytes % 42 % Monocytes % 5 % Eosinophils % 4 % Basophils % 1 % Neutrophils # 4.7 (1.3-7.7) k/uL Lymphocytes # 4.2 (1.0-4.8) k/uL Monocytes # 0.5 (0-1.0) k/uL Eosinophils # 0.4 (0-0.7) k/uL Basophils # 0.1 (0-0.2) k/uL Sodium 138 (137-145) mmol/L Potassium 3.9 (3.5-5.1) mmol/L Chloride 105 (98-107) mmol/L Carbon Dioxide 22 (22-30) mmol/L Anion Gap 11 mmol/L BUN 10 (7-17) mg/dL Creatinine 0.78 (0.52-1.04) mg/dL Est GFR (CKD-EPI)AfAm >90 (>60 ml/min/1.73 sqM) Est GFR (CKD-EPI)NonAf >90 (>60 ml/min/1.73 sqM) Glucose 140 H (74-99) mg/dL Calcium 9.1 (8.4-10.2) mg/dL Total Bilirubin 0.2 (0.2-1.3) mg/dL AST 35 (14-36) U/L ALT 41 H (4-34) U/L Alkaline Phosphatase 83 (38-126) U/L Total Protein 6.9 (6.3-8.2) g/dL Albumin 4.1 (3.5-5.0) g/dL Urine Color Yellow Urine Appearance Clear (Clear) Urine pH 6.0 (5.0-8.0) Ur Specific Graham 1.018 (1.001-1.035) Urine Protein Negative (Negative) Urine Glucose (UA) Negative (Negative) Urine Ketones Negative (Negative) Urine Blood Negative (Negative) Urine Nitrite Negative (Negative) Urine Bilirubin Negative (Negative) Urine Urobilinogen <2.0 (<2.0) mg/dL Ur Leukocyte Esterase Negative (Negative) Urine HCG, Qual (Not Detectd) 12/03/22 Range/Units 02:17 WBC (3.8-10.6) k/uL RBC (3.80-5.40) m/uL Hgb (11.4-16.0) gm/dL Hct (34.0-46.0) % MCV (80.0-100.0) fL MCH (25.0-35.0) pg MCHC (31.0-37.0) g/dL RDW (11.5-15.5) % Plt Count (150-450) k/uL MPV Neutrophils % % Lymphocytes % % Monocytes % % Eosinophils % % Basophils % % Neutrophils # (1.3-7.7) k/uL Lymphocytes # (1.0-4.8) k/uL Monocytes # (0-1.0) k/uL Eosinophils # (0-0.7) k/uL Basophils # (0-0.2) k/uL Sodium (137-145) mmol/L Potassium (3.5-5.1) mmol/L Chloride (98-107) mmol/L Carbon Dioxide (22-30) mmol/L Anion Gap mmol/L BUN (7-17) mg/dL Creatinine (0.52-1.04) mg/dL Est GFR (CKD-EPI)AfAm (>60 ml/min/1.73 sqM) Est GFR (CKD-EPI)NonAf (>60 ml/min/1.73 sqM) Glucose (74-99) mg/dL Calcium (8.4-10.2) mg/dL Total Bilirubin (0.2-1.3) mg/dL AST (14-36) U/L ALT (4-34) U/L Alkaline Phosphatase (38-126) U/L Total Protein (6.3-8.2) g/dL Albumin (3.5-5.0) g/dL Urine Color Urine Appearance (Clear) Urine pH (5.0-8.0) Ur Specific Graham (1.001-1.035) Urine Protein (Negative) Urine Glucose (UA) (Negative) Urine Ketones (Negative) Urine Blood (Negative) Urine Nitrite (Negative) Urine Bilirubin (Negative) Urine Urobilinogen (<2.0) mg/dL Ur Leukocyte Esterase (Negative) Urine HCG, Qual Not Detected (Not Detectd) Disposition <Loan Navarro - Last Filed: 12/03/22 01:03> Is patient prescribed a controlled substance at d/c from ED?: No Time of Disposition: 04:22 <Melvin Luna - Last Filed: 12/03/22 07:18> Clinical Impression: Abdominal wall pain Disposition: HOME SELF-CARE Condition: Good Instructions (If sedation given, give patient instructions): Abdominal Pain (ED) Referrals: Favio Ford MD [Primary Care Provider] - 1-2 days
[2022-12-03 01:27] LABS: Basophils # (A) 0.1 k/uL (0-0.2); Basophils % (A) 1 %; Eosinophils # (A) 0.4 k/uL (0-0.7); Eosinophils % (A) 4 %; HCT 39.1 % (34.0-46.0); HGB 12.8 gm/dL (11.4-16.0); Lymphocytes # (A) 4.2 k/uL (1.0-4.8); Lymphocytes % (A) 42 %; MCH 27.9 pg (25.0-35.0); MCHC 32.6 g/dL (31.0-37.0); MCV 85.6 fL (80.0-100.0); Mean Platelet Volume 8.1; Monocytes # (A) 0.5 k/uL (0-1.0); Monocytes % (A) 5 %; Neutrophils # (A) 4.7 k/uL (1.3-7.7); Neutrophils % (A) 47 %; Platelet Count 353 k/uL (150-450); RBC 4.57 m/uL (3.80-5.40); RDW 13.1 % (11.5-15.5)
[2022-12-03 01:38] LABS: ALT 41 U/L (4-34); AST 35 U/L (14-36); African American GFR (CKD) >90 (>60 ml/min/1.73 sqM); Albumin 4.1 g/dL (3.5-5.0); Alkaline Phosphatase 83 U/L (38-126); Anion Gap 11 mmol/L; Blood Urea Nitrogen 10 mg/dL (7-17); Calcium 9.1 mg/dL (8.4-10.2); Carbon Dioxide 22 mmol/L (22-30); Chloride 105 mmol/L (98-107); Glucose 140 mg/dL (74-99); Non-African American GFR(CKD) >90 (>60 ml/min/1.73 sqM); Potassium 3.9 mmol/L (3.5-5.1); Sodium 138 mmol/L (137-145); Total Bilirubin 0.2 mg/dL (0.2-1.3); Total Protein 6.9 g/dL (6.3-8.2)
[2022-12-03 02:53] VITALS: BP 140/86; PULSE 86; RESP 18; TEMP 97.8
[2022-12-03 03:55] LABS: Appearance,Urine Clear (Clear); Bilirubin,Urine Negative (Negative); Blood,Urine Negative (Negative); Color,Urine Yellow; Glucose,Urine (UA) Negative (Negative); Ketones,Urine Negative (Negative); Leukocyte Esterase,Urine Negative (Negative); Nitrite,Urine Negative (Negative); Protein,Urine Negative (Negative); Specific Gravity,Urine 1.018 (1.001-1.035); Urobilinogen,Urine <2.0 mg/dL (<2.0)
== END 2022-12-03 04:28 | disposition home or self-care (01) ==
LOC: EC 00:17
DX: R10.32 Left lower quadrant pain (principal); E07.9 Disorder of thyroid, unspecified; J45.909 Unspecified asthma, uncomplicated; F41.9 Anxiety disorder, unspecified; F32.A Depression, unspecified; F17.290 Nicotine dependence, other tobacco product, uncomplicated; Z91.018 Allergy to other foods; Z88.8 Allergy status to other drugs, medicaments and biological substances; Z91.041 Radiographic dye allergy status; Z79.890 Hormone replacement therapy; Z79.899 Other long term (current) drug therapy
CPT/HCPCS: 36415; 80053; 81003; 81025; 85025; 99284